=== PATIENT | female | born 1955 | race Caucasian/White ===

== ENCOUNTER 2018-02-28 08:16 | Emergency (ER) | payer OTHER, SELFPAY ==
[2018-02-28 08:36] VITALS: BP 150/99; PULSE 53; RESP 16; TEMP 36.4; O2SAT 100
[2018-02-28 08:43] LABS: Bilirubin Negative (Negative); Blood Large (Negative); Clarity Cloudy; Glucose Negative (Negative); Ketones 15 mg/dL (Negative); Leukocyte Esterase Negative (Negative); Nitrite Negative (Negative); Specific Gravity >= 1.030 (1.005-1.025); Urobilinogen 0.2 EU/dL (Up TO 0.2)
[2018-02-28] MEDS: Normal Saline 1,000 ML 1500 ML IV ×2 (08:50→10:00)
[2018-02-28] MEDS: Ketorolac 15 MG/ML VIAL IVP (08:50)
--- NOTE | 2018-02-28 08:59 | DI.CT_ITS ---
SYMPTOM/DIAGNOSIS: LEFT FLANK PAIN, HEMATURIA NONCONTRAST CT ABDOMEN AND PELVIS: Comparison is made with 25 Oct 2013, Images were performed from the lung bases through the ischial tuberosities without IV or oral contrast. There is mild left hydronephrosis secondary to a tiny stone just visible above the ureterovesical junction. No additional urinary tract calculi are seen. The lung bases are clear. The liver, gallbladder, spleen, pancreas and adrenals are unremarkable. The appendix appears normal. No bowel dilatation or inflammatory changes are seen. There is no free air or free fluid. The bladder, uterus and ovaries are unremarkable. IMPRESSION: Mild left hydronephrosis secondary to tiny calcification just above the ureterovesical junction.
[2018-02-28 09:03] LABS: Abs Immature Grans 0.02 k/cumm (0.0-0.09); Absolute Basophil Count 0.03 k/cumm (0.0-0.2); Absolute Eosinophil Count 0.14 k/cumm (0.0-0.7); Absolute Lymphocyte Count 1.79 k/cumm (1.2-3.4); Absolute Monocyte Count 0.37 k/cumm (0.11-0.7); Absolute Neutrophil Count 6.84 k/cumm (1.2-6.7); Basophils % 0.3; Eosinophils % 1.5; HCT 42.2 % (36.0-46.0); HGB 13.9 g/dL (12.0-15.5); Immature Grans % 0.2; Lymphocytes % 19.5; Mean Corp. HGB Concentration 32.9 g/dL (32.0-36.0); Mean Corpuscular Hemoglobin 28.4 pg (27.0-33.0); Mean Corpuscular Volume 86.1 fL (80-95); Mean Platelet Volume 10.4 fL (8.0-11.0); Neutrophils % 74.5; Platelet Count 239 x1000/uL (130-400); White Blood Cell Count 9.19 k/cumm (4.4-10.8)
[2018-02-28 09:05] LABS: RBC >50 (0-2)
[2018-02-28 09:06] LABS: C & S Indicated? No/Sq. Contamination; Epithelial Cells Many HPF (Negative)
[2018-02-28 09:22] LABS: ALT 22 U/L (12-78); AST 26 U/L (15-37); Albumin 3.8 g/dL (3.4-5.0); Alkaline Phosphatase 94 U/L (46-116); Anion Gap 14.8 mmol/L (3-11); BUN 13 mg/dL (7-18); Bilirubin, Total 0.4 mg/dL (0.2-1.0); CO2 23.2 mmol/L (21.0-32.0); CREATININE 0.97 mg/dL (0.55-1.02); Calcium 8.7 mg/dL (8.5-10.1); Chloride 103 mmol/L (98-107); Estimated GFR 58.38 (mL/min/1.73m2); Glucose 148 mg/dL (70-100); Lipase 222 U/L (73-393); Potassium 3.5 mmol/L (3.5-5.1); Sodium 141 mmol/L (136-145); Total Protein 7.6 g/dL (6.4-8.2)
--- NOTE | 2018-02-28 10:24 | W.ED.GENAD ---
Discharge Plan Disposition Patient Disposition: HOME Condition: Good Discharge Details Chief Complaint: FlankPain Clinical Impression: Kidney calculi, Diarrhea Primary Care Provider: Migdalia Rain ED Provider: Primo Proctor Home Meds and New Rx's Prescriptions: New acetaminophen [Mapap Extra Strength] 500 MG tablet 1,000 mg PO Q6H 5 Days Qty: 60 RF: 0 ibuprofen [Motrin IB] 200 MG tablet 600 mg PO Q6H 5 Days Qty: 60 RF: 0 No Action paroxetine HCl 20 MG tablet 20 mg PO QAM RF: 0 ibuprofen 600 MG tablet 600 mg PO TID PRN PRN (Reason: Pain) Qty: 20 RF: 0 cyclobenzaprine 10 MG tablet 10 mg PO TID Qty: 10 RF: 0 hydrocodone-acetaminophen 1 EACH tablet 1 ea PO Q4H PRN Qty: 10 RF: 1 hydromorphone [Dilaudid] 2 MG tablet 2 mg PO Q6H PRN PRNQty: 15 RF: 0 Discharge Instructions Instructions: Kidney Stones (ED), Acute Diarrhea (ED) Additional Instructions: Please take Tylenol and Motrin for pain. Please drink 8-10 cups of water per day. Please strain your urine for the stone. If you notice any worsening of your symptoms, or any new symptoms such as vomiting, diarrhea, fever, chills, shortness of breath, chest pain, numbness, weakness, or fainting , please return immediately to the emergency department for reevaluation. Please follow up with your primary care provider as soon as possible for reassessment and reevaluation. As always, it was a pleasure participating in your medical care today. Referrals: Migdalia Rain [Primary Care Provider] - Medical Decision Making [facility] Narrative Medical decision making narrative: This is a pleasant 62-year-old female who presents with a few episodes of diarrhea, and mild left lower neck pain. No significant flank tenderness, no CVA tenderness. No pain on abdominal exam. History is negative for any red flags for infectious diarrhea. She has no tenderness on abdominal exam during evaluation. Urinalysis does show evidence of elevated RBCs. Signs of significant infection. She has no family history of personal history of a kidney stone, however with these RBCs and the left-sided back pain we will get a CT scan to evaluate for potential urolithiasis. We will give Toradol for her pain, rehydrate as she does demonstrate moderate dehydration on clinical exam. 10:[address] results have returned to demonstrate evidence of mild left obstructive uropathy punctate calculus within the distal ureter on the left is faintly visualized just proximal to the UV J. On reevaluation the patient states that I am feeling 100% better and feel that the Toradol and rehydration certainly helped with the patient's current clinical scenario. I feel she may have even passed the small stone that was at the UVJ junction. With a complete resolution of her symptoms, no evidence of infection, and good rehydration and feel she can be safely discharged home. I feel her diarrhea may be secondary to a mild viral illness versus viscerosomatic reflex secondary to the kidney stone which would correlate well with her personal and family history. We discussed red flags which to return, as well as the importance of close follow-up, straining for the urine, and Tylenol and Motrin at home. We will hold off on Flomax that she has had a complete resolution of her symptoms at this time. If you notice any worsening of your symptoms, or any new symptoms such as vomiting, diarrhea, fever, chills, shortness of breath, chest pain, numbness, weakness, or fainting , please return immediately to the emergency department for reevaluation. Please follow up with your primary care provider as soon as possible for reassessment and reevaluation. As always, it was a pleasure participating in your medical care today. Lab Data Lab Results 02/28/18 02/28/18 02/28/18 Range/Units 08:35 08:55 08:55 WBC 9.19 (4.4-10.8) k/cumm RBC 4.90 (4.00-5.20) m/cumm Hgb 13.9 (12.0-15.5) g/dL Hct 42.2 (36.0-46.0) % MCV 86.1 (80-95) fL MCH 28.4 (27.0-33.0) pg MCHC 32.9 (32.0-36.0) g/dL RDW 13.0 (11.7-14.6) % Plt Count 239 (130-400) x1000/uL MPV 10.4 (8.0-11.0) fL Immature Gran % 0.2 Neutrophils % 74.5 Lymphocytes % 19.5 Monocytes % 4.0 Eosinophils % 1.5 Basophils % 0.3 Absolute Neutrophils 6.84 H (1.2-6.7) k/cumm Absolute Lymphocytes 1.79 (1.2-3.4) k/cumm Absolute Monocytes 0.37 (0.11-0.7) k/cumm Absolute Eosinophils 0.14 (0.0-0.7) k/cumm Absolute Basophils 0.03 (0.0-0.2) k/cumm Sodium 141 (136-145) mmol/L Potassium 3.5 (3.5-5.1) mmol/L Chloride 103 (98-107) mmol/L Carbon Dioxide 23.2 (21.0-32.0) mmol/L Anion Gap 14.8 H (3-11) mmol/L BUN 13 (7-18) mg/dL Creatinine 0.97 (0.55-1.02) mg/dL Estimated GFR/1.73 m2 58.38 (mL/min/1.73m2) Glucose 148 H (70-100) mg/dL Calcium 8.7 (8.5-10.1) mg/dL Total Bilirubin 0.4 (0.2-1.0) mg/dL AST 26 (15-37) U/L ALT 22 (12-78) U/L Alkaline Phosphatase 94 (46-116) U/L Total Protein 7.6 (6.4-8.2) g/dL Albumin 3.8 (3.4-5.0) g/dL Lipase 222 (73-393) U/L Urine Color Yellow (Yellow) Urine Clarity Cloudy Urine pH 5.0 (5-8) Ur Specific [place] >= 1.030 H (1.005-1.025) Urine Protein 30 H (Negative) mg/dL Urine Ketones 15 H (Negative) mg/dL Urine Blood Large H (Negative) Urine Nitrite Negative (Negative) Urine Bilirubin Negative (Negative) Urine Urobilinogen 0.2 (Up TO 0.2) EU/dL Ur Leukocyte Esterase Negative (Negative) Urine RBC >50 H (0-2) Urine WBC Not Applicable Ur Epithelial Cells Many (Negative) HPF Urine Crystals Not Applicable Urine Bacteria Not Applicable Urine Mucus Not Applicable Ur Culture Indicated? No/sq. contamination Urine Glucose Negative (Negative) mg/dL HPI - General Adult General Date/Time Provider Initiated Documentation: 02/28/18 08:34. HPI Narrative: This is a 62-year-old Fe male who presents today for evaluation of left lower back pain, some mild diarrhea. It started yesterday in the morning, has been continuing throughout the evening. She has had 3-4 loose bowel movements. She denies any melena, hematochezia, or acholic stool. She does have some associated dry heaving but no actual vomiting. There appears to be nothing that improves or worsens her symptoms. She has been able to keep down some toast from yesterday without any difficulty. She has been drinking some fluids. He describes the back pain as an achy-like sensation in her left lower back. It has no radiation. It does not travel around to her groin. She denies any abdominal pain. She denies any increased urinary frequency, hematuria, dysuria, fever, or chills. She denies any foreign travel, recent antibiotics, sick contacts, or camping. She denies any history of GI infections. She does state that she and the rest of her family often get loose stools and GI irritability whenever she is nervous or under stress. She does not that she has been under a notable amount of stress as of late. Past surgical history is positive for fibroid surgery on her breast. She takes Paxil. She denies any other significant medications. She denies any pertinent family history. She has no other complaints at this time. She denies any other illicit drug Related Data Home Medications Medication Instructions Recorded Confirmed paroxetine HCl 20 mg PO QAM 09/11/12 10/26/13 Previous Rx's Medication Instructions Recorded ibuprofen 600 mg PO TID PRN PRN #20 tablet 09/11/12 cyclobenzaprine 10 mg PO TID #10 tab 10/25/13 hydrocodone-acetaminophen 1 ea PO Q4H PRN #10 tablet 10/25/13 hydromorphone [Dilaudid] 2 mg PO Q6H PRN PRN #15 tab 10/26/13 acetaminophen [Mapap Extra 1,000 mg PO Q6H 5 Days #60 tab 02/28/18 Strength] ibuprofen [Motrin Ib] 600 mg PO Q6H 5 Days #60 tab 02/28/18 Allergies Allergy/AdvReac Type Severity Reaction Status Date / Time No Known Allergies Allergy Unverified 10/26/13 09:00 General Stated Complaint: FlankPain THELMA: 3 Review of Systems Review of Systems 10 point review of systems was performed, pertinent positives and negatives are noted in the history of present illness. [facility] Social History Smoking/Tobacco Use Status: Never Exam Narrative Exam Narrative: 1.Const: Well-nourished, Well-developed, appearing stated age 2.Eyes: PERRL, no conjunctival injection, and symmetrical lids. 3.ENT: Atraumatic external nose and ears. Dry MM. Neck: Symmetric, trachea midline, No thyromegaly. 4.CVS: +S1/S2, No murmurs or gallops. Peripheral pulses 2+ and equal in all extremities. Brisk capillary refill in all extremities. 5.RESP: Unlabored respiratory effort. Clear to auscultation bilaterally. No wheezes rales or rhonchi 6.GI: Soft, Nontender/Nondistended, No hepatosplenomegaly. No guarding or rebound. No pain at McBurney's point, negative Isaacs sign, negative obturator and psoas sign. Patient does have mild achiness on palpation of the left lower paraspinal region. No midline spinal tenderness. 7.MSK: Normocephalic/Atraumatic, Extremities w/o deformity or ttp No cyanosis or clubbing, Normal movement of all extremities. No midline tenderness to palpation over the CTLS spine. Normal ROM in flexion, extension, side bend, and rotation. Patient has +5 out of 5 strength in the lower extremities in dorsiflexion and plantarflexion, knee flexion and extension, hip flexion and extension. There is +2 over 2 dorsalis pedis pulses bilaterally. There is normal sensation to the skin with light touch at the foot, knee, and hip. Normal saddle sensation. Good sensation over the deep sural nerve area bilaterally. Rectal exam deferred. Reflexes are +2 over 4 in the patellar reflex bilaterally. +5 out of 5 strength in the medial, ulnar, radial nerve distribution bilaterally in the hands as well as intact light touch sensation to these dermatomes on the hands 8.Skin: Warm, Dry. No rashes or lesions. 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 Sensation grossly intact, no focal neurologic deficits. 10.Psych: (AAO) x3. Appropriate mood and affect Course Vital Signs Temperature 36.4 C L 02/28/18 08:36 Pulse 53 L 02/28/18 08:36 Respiratory Rate 16 02/28/18 08:36 Blood Pressure 150/99 H 02/28/18 08:36 Pulse Oximetry 100 02/28/18 08:36 Temperature 36.4 C L 02/28/18 08:36 Pulse 53 L 02/28/18 08:36 Respiratory Rate 16 02/28/18 08:36 Blood Pressure 150/99 H 02/28/18 08:36 Pulse Oximetry 100 02/28/18 08:36 Lab/Test Results Lab/Test Results: Laboratory Tests 02/28/18 02/28/18 02/28/18 08:35 08:55 08:55 WBC 9.19 RBC 4.90 Hgb 13.9 Hct 42.2 MCV 86.1 MCH 28.4 MCHC 32.9 RDW 13.0 Plt Count 239 MPV 10.4 Immature Gran % 0.2 Neutrophils % 74.5 Lymphocytes % 19.5 Monocytes % 4.0 Eosinophils % 1.5 Basophils % 0.3 Absolute Neutrophils 6.84 H Absolute Lymphocytes 1.79 Absolute Monocytes 0.37 Absolute Eosinophils 0.14 Absolute Basophils 0.03 Sodium 141 Potassium 3.5 Chloride 103 Carbon Dioxide 23.2 Anion Gap 14.8 H BUN 13 Creatinine 0.97 Estimated GFR/1.73 m2 58.38 Glucose 148 H Calcium 8.7 Total Bilirubin 0.4 AST 26 ALT 22 Alkaline Phosphatase 94 Total Protein 7.6 Albumin 3.8 Lipase 222 Urine Color Yellow Urine Clarity Cloudy Urine pH 5.0 Ur Specific [place] >= 1.030 H Urine Protein 30 H Urine Ketones 15 H Urine Blood Large H Urine Nitrite Negative Urine Bilirubin Negative Urine Urobilinogen 0.2 Ur Leukocyte Esterase Negative Urine RBC >50 H Urine WBC Not Applicable Ur Epithelial Cells Many Urine Crystals Not Applicable Urine Bacteria Not Applicable Urine Mucus Not Applicable Ur Culture Indicated? No/sq. contamination Urine Glucose Negative
--- NOTE | 2018-02-28 10:43 | DI.VRAD_ITS ---
EXAM: CT Abdomen and Pelvis Without Intravenous Contrast EXAM DATE/TIME: 02/28/2018 9:00 AM CLINICAL HISTORY: 62 years old, female; Signs and symptoms; Other: Left flank pain, hematuria; Patient HX: Left flank pain, hematuria, ; additional info: Llq pain since this am per PT TECHNIQUE: Axial computed tomography images of the abdomen and pelvis without intravenous contrast. All CT scans at this facility use at least one of these dose optimization techniques: automated exposure control; mA and/or kV adjustment per patient size (includes targeted exams where dose is matched to clinical indication); or iterative reconstruction. Coronal and sagittal reformatted images were created and reviewed. COMPARISON: CT - RENAL COLIC WO CONTRAST 10/25/2013 9:45 AM FINDINGS: Lower thorax: No acute findings. ABDOMEN: Liver: Normal. No mass. Gallbladder and bile ducts: Normal. No calcified stones. No ductal dilation. Pancreas: Normal. No ductal dilation. Spleen: Normal. No splenomegaly. Adrenals: Normal. No mass. Kidneys and ureters: Mild left obstructive uropathy Punctate calculus within the distal left ureter faintly visualized, just proximal to the ureterovesical junction (series 4 image 638). No right hydronephrosis. Stomach and bowel: Normal. No obstruction. No mucosal thickening. Appendix: No evidence of appendicitis. PELVIS: Bladder: Unremarkable as visualized. Reproductive: Unremarkable as visualized. ABDOMEN and PELVIS: Intraperitoneal space: Normal. No free air. No significant fluid collection. Bones/joints: No acute fracture. No dislocation. Soft tissues: Unremarkable. Vasculature: Normal. No abdominal aortic aneurysm. Lymph nodes: Normal. No enlarged lymph nodes. IMPRESSION: Mild left obstructive uropathy Punctate calculus within the distal left ureter faintly visualized, just proximal to the ureterovesical junction (series 4 image 638). Dictated and Authenticated by: Aurea Robertson MD. Ordering:CAMI AMANDA MD
[2018-02-28 11:12] VITALS: BP 135/72; PULSE 56; RESP 16; TEMP 36.4; O2SAT 100
== END 2018-02-28 11:12 | disposition home or self-care (01) ==
PROVIDERS: Emergency Provider Student in an Organized Health Care Education/Training Program; PCP Nurse Practitioner Family
DX: N13.2 Hydronephrosis with renal and ureteral calculous obstruction (principal); E86.0 Dehydration; R19.7 Diarrhea, unspecified
CPT/HCPCS: 36415; 80053; 83690; 96361; 96374; 99284; 74176; 81003; 81015; 85025; J1885

== ENCOUNTER 2018-06-10 15:53 | Outpatient (REF) | payer OTHER, SELFPAY ==
[2018-06-12 12:30] LABS: Hepatitis C Ab w Rflx HCV PCR Negative (NEGAT)
== END 2018-06-10 16:13 ==
LOC: NCHCN 15:53
PROVIDERS: PCP Nurse Practitioner Family; Visit Provider Nurse Practitioner Family
DX: F41.8 Other specified anxiety disorders (principal); N39.3 Stress incontinence (female) (male); Z00.00 Encounter for general adult medical examination without abnormal findings; Z11.59 Encounter for screening for other viral diseases
CPT/HCPCS: 86803

== ENCOUNTER 2018-11-25 11:41 | Outpatient (CLI) | payer OTHER, SELFPAY ==
[2018-11-25 12:26] LABS: HCT 41.1 % (36.0-46.0); HGB 13.3 g/dL (12.0-15.5); Mean Corp. HGB Concentration 32.4 g/dL (32.0-36.0); Mean Corpuscular Hemoglobin 28.5 pg (27.0-33.0); Mean Platelet Volume 10.7 fL (8.0-11.0); Platelet Count 283 x1000/uL (130-400); RBC 4.67 m/cumm (4.00-5.20); RBC Distribution Width 13.1 % (11.7-14.6); White Blood Cell Count 6.42 k/cumm (4.4-10.8)
[2018-11-25 12:51] LABS: D-Dimer 316 ng/mlFEU (<500)
[2018-11-25 13:16] LABS: Anion Gap 10.7 mmol/L (3-11); BUN 12 mg/dL (7-18); CO2 28.3 mmol/L (21.0-32.0); CREATININE 0.76 mg/dL (0.55-1.02); Calcium 8.7 mg/dL (8.5-10.1); Calculated LDL 145; Chloride 104 mmol/L (98-107); Cholesterol 220 mg/dL (50-200); Glucose 84 mg/dL (70-100); HDL Cholesterol 60 mg/dL (40-60); Potassium 4.1 mmol/L (3.5-5.1); Sodium 143 mmol/L (136-145); Triglyceride 79 mg/dL (30-150)
[2018-11-25 13:38] LABS: NT-proBNP 63 pg/mL
== END 2018-11-25 12:01 ==
PROVIDERS: PCP Nurse Practitioner Family; Visit Provider Internal Medicine
DX: R07.89 Other chest pain (principal); R06.02 Shortness of breath
CPT/HCPCS: 36415; 80048; 80061; 83721; 85027; 83880; 85379

== ENCOUNTER 2018-12-06 00:25 | Outpatient (CLI) | payer OTHER, SELFPAY ==
--- NOTE | 2018-12-06 08:15 | MERGEMPI_ITS ---
*[facility]* *[facility]* [address] [place] [address] Myocardial Perfusion Imaging - SPECT Prakash protocol Date of study: 12/06/2018 *PATIENT PRESENTATION* Height: 149.9cm (59in) Blood Pressure: Weight: 43.2kg (95lb) BSA: 1.34m^2 Referring physician: Devon Hardy MD Ordering physician: Migdalia Rain Aprn Impressions: - Abnormal study after maximal exercise. - Will arrange [facility]. Summary: 1. Myocardial perfusion imaging: There is a moderate sized, severely intense, fully reversible defect involving the inferior wall(s). This suggests moderate ischemia in the distribution of the right coronary artery. Overall ischemia: moderate. 2. The calculated left ventricular ejection fraction after stress: 69%. No left ventricular regional motion abnormality. Indication: R07.89. History: REASON FOR VISIT: FOR PAST TWO WEEKS PT HAS BEEN EXPERIENCING CHEST PRESSURE WITH ACTIVIY SUCH LIFTING HEAVY OBJECTS OR WALKING UPSTAIRS. SHE STATES IT SUBSIDES WITH STOPPING THE ACTIVITY. THERE IS NO ASSOCIATED SHORTNESS OF BREATH. Risk factors: Cholesterol: 124mg/dl. HDL: 60mg/dl. LDL: 145mg/dl. Triglycerides: 79mg/dl. ALLERGIES: NO KNOWN DRUG ALLERGIES. MEDICATIONS: IBUPROFEN 400 MG TID PRN. PAROXETINE HCL 20 MG DAILY. Imaging Technique: Protocol: Prakash protocol. Acquisition: Gated SPECT; 1 day - rest/stress. The patient was imaged in the supine position. Attenuation correction used. Isotope administration: - Rest. Tc[99m]-sestamibi. Dose: 10.4mCi. Injection time: 08:30 AM. Injection to stress time: 00:45. - Stress. Tc[99m]-sestamibi. Dose: 32mCi. Injection time: 11:00 AM. 1-2 min before end of exercise Baseline ECG: SINUS RHYTHM. INCOMPLETE RIGHT BBB. HR 71 BPM. Stress protocol: + +---+ + !Stage !HR !BP (mmHg) ! + +---+ + !Baseline supine !71 !158/80 (106)! + +---+ + !Baseline standing !73 !160/80 (107)! + +---+ + !Stage I; 1.7mph, 10degrees; 3 min !135!170/82 (111)! + +---+ + !Stage II; 1.7mph, 10degrees; 3 min!143!170/82 (111)! + +---+ + !Peak stress !143! ! + +---+ + !Recovery; 1 min !98 !178/80 (113)! + +---+ + !Recovery; 3 min !71 !140/70 (93) ! + +---+ + !Recovery; 6 min !78 !138/72 (94) ! + +---+ + * Stress results: Maximal heart rate during stress was 143bpm (90% of maximal predicted heart rate). The maximal predicted heart rate was 159bpm. The rate-pressure product for the peak heart rate and blood pressure was 47133cb Hg/min. Stress ECG: TREADMILL PORTION OF STRESS TEST ENDED IN 5 MINUTES & 2 SECONDS DUE TO FATIGUE, WEAKNESS AND PT UNABLE TO CONTINUE ON TREADMILL. NORMAL HEART RATE AND BLOOD PRESSURE RESPONSE TO EXERCISE MAX HR = 143 % OF TARGET= 89 NO ECTOPY APPROXIMATE METS ACHIEVED = 4.64 PT UNABLE TO SAFELY TRANSITION TO STAGE 2 OF EXERCISE. STAGE ONE OF EXERCISE MPH AND GRADE MAINTAINED FOR LENGTH OF TEST. CHEST PAIN 1 OUT OF 10 REPORTED AT 2 MINUTES RECOVERY PERIOD. SUBSIDED IN LESS THAN [address] SEGMENT DEPRESSIONS IN LEADS V3, V4, V5 & V6 DURING PEAK EXERCISE AND IMMEDIATE RECOVERY BECOMING FLATTENED AND DOWNWARD SLOPING AT 4 AND 6 MINUTES RECOVERY TIME. FUNCTIONAL CAPACITY FOR EXERCISE. Myocardial perfusion: Imaging information: gated. There is a moderate sized, severely intense, fully reversible defect involving the inferior wall(s). This suggests moderate ischemia in the distribution of the right coronary artery. Overall ischemia: moderate. Ventricular Function (Wall Motion): The calculated left ventricular ejection fraction after stress: 69%. No left ventricular regional motion abnormality. Study data: Devon Hardy MD supervised and was readily available during the procedure. This study was interpreted by [facility]. Study status: Routine. Consent: The risks, benefits, and alternatives to the procedure were explained to the patient and informed consent was obtained. Procedure: Initial setup. A baseline ECG was recorded. Surface ECG leads and manual cuff blood pressure measurements were monitored. Heart sounds: Normal. Lung sounds: Normal. Treadmill exercise testing was performed using the Prakash protocol. Study completion: All catheters inserted during the procedure were removed. The patient tolerated the procedure well and was discharged from the lab. Discharge: The patient left the laboratory in stable condition. Birthdate: Patient birthdate: 1955. Sex: Gender: female. Study date: Study date: 12/06/2018. Study time: 00:01 AM. Electronically signed by Devon Hardy MD 12/06/2018 16:19
== END 2018-12-06 00:45 ==
PROVIDERS: PCP Nurse Practitioner Family; Visit Provider Internal Medicine
DX: R06.02 Shortness of breath (principal); R94.30 Abnormal result of cardiovascular function study, unspecified
CPT/HCPCS: 78452; 93017

== ENCOUNTER 2019-01-19 12:16 | Outpatient (RCR) | payer OTHER, SELFPAY | END 2019-01-19 23:59 | disposition home or self-care (01) | LOC: CR 12:16 | PROVIDERS: PCP Nurse Practitioner Family; Visit Provider Family Medicine | DX: Z51.89 Encounter for other specified aftercare (principal) ==

== ENCOUNTER 2019-02-18 09:00 | Outpatient (RCR) | payer OTHER, SELFPAY | END 2019-02-19 23:59 | disposition home or self-care (01) | LOC: CR 09:00 | PROVIDERS: PCP Nurse Practitioner Family; Visit Provider Family Medicine | DX: Z95.5 Presence of coronary angioplasty implant and graft (principal); Z51.89 Encounter for other specified aftercare | CPT/HCPCS: S9472 ==

== ENCOUNTER 2019-03-21 08:00 | Outpatient (RCR) | payer OTHER, SELFPAY | END 2019-03-21 23:59 | disposition home or self-care (01) | LOC: CR 08:00 | PROVIDERS: PCP Nurse Practitioner Family; Visit Provider Family Medicine | DX: Z95.5 Presence of coronary angioplasty implant and graft (principal); Z51.89 Encounter for other specified aftercare | CPT/HCPCS: S9472 ==

== ENCOUNTER 2019-04-20 11:38 | Outpatient (RCR) | payer OTHER, SELFPAY | END 2019-04-21 23:59 | disposition home or self-care (01) | LOC: CR 11:38 | PROVIDERS: PCP Nurse Practitioner Family; Visit Provider Family Medicine | DX: Z95.5 Presence of coronary angioplasty implant and graft (principal); Z51.89 Encounter for other specified aftercare | CPT/HCPCS: S9472 ==

== ENCOUNTER 2019-04-27 08:00 | Outpatient (RCR) | payer OTHER, SELFPAY | END 2019-05-21 23:59 | disposition home or self-care (01) | LOC: CR 08:00 | PROVIDERS: PCP Nurse Practitioner Family; Visit Provider Family Medicine | DX: Z95.5 Presence of coronary angioplasty implant and graft (principal); Z51.89 Encounter for other specified aftercare | CPT/HCPCS: S9472 ==

== ENCOUNTER 2019-06-02 06:56 | Outpatient (CLI) | payer OTHER, SELFPAY ==
--- NOTE | 2019-06-02 07:54 | DI.RAD_ITS ---
EXAM: XR WRIST RT COMPL NAVICULAR INDICATION: PAIN IN RT WRIST, M25.531. COMPARISON: No exams were available for comparison TECHNIQUE: 2D digital imaging was performed. FINDINGS: CT there is a fracture extent seen extending transversely across the distal radial metaphysis. There is no significant displacement or angulation. No extension to the articular surface is visible. Th ere are few tiny comminuted fragments seen posteriorly. The distal ulna and carpal bones appear inta ct. IMPRESSION: Nondisplaced distal radial fracture.
== END 2019-06-02 07:16 ==
PROVIDERS: PCP Nurse Practitioner Family; Visit Provider Specialist/Technologist Athletic Trainer
DX: M25.531 Pain in right wrist (principal); S52.591A Other fractures of lower end of right radius, initial encounter for closed fracture
CPT/HCPCS: 73110

== ENCOUNTER 2019-07-11 13:33 | Outpatient (REF) | payer OTHER, SELFPAY ==
[2019-07-11 22:32] LABS: ALT 24 U/L (14-59); AST 18 U/L (15-37); Albumin 3.8 g/dL (3.4-5.0); Alkaline Phosphatase 100 U/L (46-116); Anion Gap 11.2 mmol/L (3-11); BUN 14 mg/dL (7-18); Bilirubin, Total 0.4 mg/dL (0.2-1.0); CO2 26.8 mmol/L (21.0-32.0); CREATININE 0.92 mg/dL (0.55-1.02); Calcium 8.8 mg/dL (8.5-10.1); Calculated LDL 76 mg/dL; Chloride 104 mmol/L (98-107); Cholesterol 146 mg/dL (<200); Glucose 106 mg/dL (74-106); HDL Cholesterol 60 mg/dL (40-60); Potassium 4.1 mmol/L (3.5-5.1); Sodium 142 mmol/L (136-145); Total Protein 6.9 g/dL (6.4-8.2); Triglyceride 50 mg/dL (<150)
== END 2019-07-11 13:53 ==
LOC: NCHCN 13:33
PROVIDERS: PCP Nurse Practitioner Family; Visit Provider Nurse Practitioner Family
DX: Z00.00 Encounter for general adult medical examination without abnormal findings (principal); I25.10 Atherosclerotic heart disease of native coronary artery without angina pectoris; F41.8 Other specified anxiety disorders; M79.645 Pain in left finger(s); N39.3 Stress incontinence (female) (male); M85.80 Other specified disorders of bone density and structure, unspecified site
CPT/HCPCS: 80053; 80061

== ENCOUNTER 2019-08-10 02:22 | Outpatient (CLI) | payer OTHER, SELFPAY ==
--- NOTE | 2019-08-10 08:20 | DI.MAMMO_ITS ---
EXAM: MAMMO SCREENING CLINICAL HISTORY: SCREENING,Z12.39, FAMILY H/O BREAST CA, Z80.3 TECHNIQUE: Mammograms were interpreted according to the usual protocol including computer analysis w Wannyi CAD system, tomosynthesis and C-view imaging. COMPARISON: 2009 to 2016 FINDINGS: The breasts are composed of heterogeneously dense fibroglandular densities, Breast Density category C . No suspicious masses or suspicious microcalcifications are seen. A smoothly marginated area of nodul arity is again noted in the subareolar region of the right breast. No skin thickening or abnormal axillary lymph nodes are seen. There has been no significant change from prior exams. IMPRESSION: BI-RADS Cat 2 - Benign Findings. Yearly screening mammography is recommended. BREAST DENSITY: The mammogram demonstrates the patient's breast tissue is dense. Dense breast tissue is very common and is not abnormal but dense breast tissue can make it harder to find cancer on a ma mmogram. Also, dense breast tissue may increase breast cancer risk. This information about the result of the mammogram report was provided to the patient to raise their awareness. Use this report when y ou speak with the patient about their risks for breast cancer, which includes their family history. A t that time, you may recommend additional screening tests (Ultrasound or MRI) as they might be useful based on their risk. A negative radiographic report should not delay biopsy if a dominant or clinically suspicious mass is present. Up to ten percent of cancers are not identified on mammography. A negative report may reinforce clinical impression. Adenosis and dense breasts may obscure an underlying neoplasm. False positive reports average 6 to 10%.
== END 2019-08-10 02:42 ==
PROVIDERS: PCP Nurse Practitioner Family; Visit Provider Nurse Practitioner Family
DX: Z12.31 Encounter for screening mammogram for malignant neoplasm of breast (principal); Z80.3 Family history of malignant neoplasm of breast
CPT/HCPCS: 77063; 77067

== ENCOUNTER 2020-07-24 13:02 | Outpatient (REF) | payer MEDICAID, SELFPAY ==
--- NOTE | 2020-07-24 11:30 | PAPFT_PTH ---
PATIENT: Carmelina Ellis LOC: [facility]#:[id number] AGE/SX: 64/F ROOM: RE07/24/[address]: Migdalia Rain : 1955 BED: DIS: 07/24/2020 SPEC #: [id number] RECD: 07/25/20 13:03 STATUS: ROBERTO JIMENEZ #: [id number] RYLEY: 07/24/20 11:[address]: Migdalia Rain DEPT: [facility] Cytology RECD BY: Gladys Hanna Tissues: 1 - CX/ENDOCX FOR PAP SMEARS Procedures: PAP THIN PREP/UVM Screening HPV DNA PROBE Comments: [id number]
[2020-07-24 22:37] LABS: ALT 23 U/L (14-59); AST 20 U/L (15-37); Albumin 3.9 g/dL (3.4-5.0); Alkaline Phosphatase 89 U/L (46-116); Anion Gap 11.2 mmol/L (3-11); BUN 12 mg/dL (7-18); Bilirubin, Total 0.4 mg/dL (0.2-1.0); CO2 26.8 mmol/L (21.0-32.0); CREATININE 0.9 mg/dL (0.55-1.02); Calcium 8.8 mg/dL (8.5-10.1); Chloride 104 mmol/L (98-107); Glucose 85 mg/dL (74-106); Potassium 4.1 mmol/L (3.5-5.1); Sodium 142 mmol/L (136-145); Total Protein 6.8 g/dL (6.4-8.2)
== END 2020-07-24 13:03 | disposition home or self-care (01) ==
LOC: NCHCN 13:02
PROVIDERS: PCP Nurse Practitioner Family; Visit Provider Nurse Practitioner Family
DX: M54.9 Dorsalgia, unspecified (principal); I25.10 Atherosclerotic heart disease of native coronary artery without angina pectoris; Z87.442 Personal history of urinary calculi; M79.645 Pain in left finger(s); F41.8 Other specified anxiety disorders; Z00.00 Encounter for general adult medical examination without abnormal findings; M85.88 Other specified disorders of bone density and structure, other site; Z80.3 Family history of malignant neoplasm of breast; Z12.4 Encounter for screening for malignant neoplasm of cervix; Z87.42 Personal history of other diseases of the female genital tract; Z11.51 Encounter for screening for human papillomavirus (HPV)
CPT/HCPCS: 80053; 88142; 87624

== ENCOUNTER 2020-08-13 01:13 | Outpatient (CLI) | payer MEDICAID, SELFPAY ==
--- NOTE | 2020-08-13 | DI.MAMMO_ITS ---
EXAM: MAMMO SCREENING CLINICAL HISTORY: SCREENING, Z12.39. TECHNIQUE: Bilateral full field digital CC and MLO mammographic images were obtained with 3D tomosyn thesis and utilizing computer aided detection (CAD). COMPARISON: Prior mammograms dating back to 2011, the most recent being July 2019. Significant family history. Her mother was diagnosed with breast cancer, postmenopausal. FINDINGS: The fibroglandular tissue is again noted to be dense, this decreasing the sensitivity of the mammogra m for finding hidden underlying lesions. There are no CAD designations. Nodular densities in the right breast are unchanged from 2012 and therefore benign. There are no new spiculated masses nor malignant-appearing microcalcification groups. There is no significant eliz ectural distortion nor skin thickening-retraction. IMPRESSION: Dense bilateral fibroglandular tissue. Stable benign-appearing findings. No radiographic evidence o f malignancy. BI-RADS Category 2 - Benign Findings Breast Density - Category C - Heterogeneously dense Breast density Category C or D implies that the patient has dense breast tissue. Dense breast tissue can make it harder to find cancer on a mammogram. Dense breast tissue is also associated with an incr eased risk of breast cancer. This information about the result of the mammogram report was provided to the patient to raise their awareness. Use this report when you speak with the patient about their risks for breast cancer, which includes their family history. At that time, you may recommend additional screening tests (Ultrasoun d or MRI) as these tests may add significant information. A negative radiographic report should not delay biopsy if a dominant or clinically suspicious mass is present. Up to ten percent of cancers are not identified on mammography. A negative report may reinforce clinical impression. Adenosis and dense breasts may obscure an underlying neoplasm. False positive reports average 6 to 10%. Patient will receive a letter notifying them of these results.
== END 2020-08-13 01:14 ==
LOC: DI 01:19
PROVIDERS: PCP Nurse Practitioner Family; Visit Provider Nurse Practitioner Family
DX: Z12.31 Encounter for screening mammogram for malignant neoplasm of breast (principal); Z80.3 Family history of malignant neoplasm of breast
CPT/HCPCS: 77063; 77067

== ENCOUNTER 2020-10-31 02:39 | Outpatient (CLI) | payer MEDICAID, SELFPAY ==
[2020-10-31 11:37] LABS: Source Nasal/Nares
[2020-10-31 15:24] LABS: COVID-19 PCR Negative (Negative)
== END 2020-10-31 02:40 | disposition home or self-care (01) ==
LOC: LBO 02:39
PROVIDERS: PCP Nurse Practitioner Family; Visit Provider Surgery
DX: Z20.822 Contact with and (suspected) exposure to COVID-19 (principal); Z01.818 Encounter for other preprocedural examination
CPT/HCPCS: 87635

== ENCOUNTER 2020-11-02 10:18 | Day surgery (SDC) | payer MEDICAID, SELFPAY ==
[2020-11-02 10:34] VITALS: BP 142/82; PULSE 63; RESP 16; TEMP 36.6; O2SAT 97
[2020-11-02] MEDS: Lactated Ringers 1,000 ML 80 ML IV (10:51)
--- NOTE | 2020-11-02 11:14 | W.ANESPRE ---
General Info Date of Service Date Performed: 11/02/20 Height: 4 ft 11 in Weight: 43.6 kg Body Mass Index (BMI): 19.4 Surgical Procedure: Operation Date: 11/02/20 11:05 Proposed Procedures Side Surgeon andrew Murphy, Meds Allergies and Home Medications Allergies Allergy/AdvReac Type Severity Reaction Status Date / Time No Known Allergies Allergy Verified 11/02/20 10:32 Home Medication Medication Instructions Recorded ibuprofen 600 mg PO TID PRN PRN #20 tab 09/11/12 paroxetine HCl 20 mg PO QAM 09/11/12 nitroglycerin 0.4 mg sublingual 0.4 mg SL Q5M PRN 07/25/19 tablet aspirin 81 mg tablet,delayed 81 mg PO DAILY #90 tab 10/17/19 release atorvastatin 20 mg tablet 20 mg PO QHS #90 tab 10/17/19 metoprolol succinate 25 mg 25 mg PO DAILY 08/22/20 tablet,extended release 24 hr Current Visit Medications: Current Medications Generic Name Dose Route Start Last Admin Trade Name Freq PRN Reason Stop Dose Admin Ringer's Solution 1,000 mls @ 80 mls/hr 11/02/20 06:00 11/02/20 10:51 IV 12/01/20 23:59 80 mls/hr INFUSION KIYA Administration IV Miscellaneous Supplies 1 each 11/02/20 06:00 Iv Access IV 12/01/20 23:59 DIRECTED KIYA Sodium Chloride 0 ml 11/02/20 06:00 Normal Saline Flush 10 Ml Syr IV 12/01/20 23:59 PRN PRN Sodium Chloride 0 ml 11/02/20 06:00 Normal Saline 10 Ml Vial IJ 12/01/20 23:59 DIRECTED PRN Sterile Water 0 ml 11/02/20 06:00 Water,Injection,Sterile 10 Ml Vial IJ 12/01/20 23:59 DIRECTED PRN PFSH Active Problems Active Problems: Problem Status Onset Code Colon cancer screening Z12.11 CAD (coronary artery disease) I25.10 Distal radius fracture, right ~05/14/19 S52.501A Medical History Medical History Anxiety and depression Back pain CAD (coronary artery disease) Decreased hearing Distal radius fracture, right (~05/14/19) TRUONG (dyspnea on exertion) denies this Family history of breast cancer History of kidney stones Osteopenia Pain in right wrist Stress incontinence Suprapubic pain Thumb pain Surgical History Surgical History H/O heart artery stent (~11/2018) ANN MARIE to RCA-no longer has to f/u with cardiology Tobacco Smoking/Tobacco Use Status: Never Alcohol Alcohol Intake: never Substance Use Substance use: Never Substance use type: does not use Vital Signs and Lab Results Vital Signs Most Recent Vital Signs in EMR: Most Recent Vital Signs Temp Pulse Resp BP Pulse Ox 36.6 C 63 16 142/82 H 97 11/02/20 10:34 11/02/20 10:34 11/02/20 10:34 11/02/20 10:34 11/02/20 10:34 Lab Results Blood Type / Crossmatch: No Data to Display Complete Blood Count: No Data to Display Complete Metabolic Panel: No Data to Display Liver Function Panel: No Data to Display Coagulation Panel: No Data to Display Cardiac Panel: No Data to Display Arterial Blood Gas: No Data to Display Venous Blood Gas: No Data to Display Pancreas Panel: No Data to Display Thyroid Panel: No Data to Display Infectious Disease: Coronavirus (COVID-19)(PCR) Negative (Negative) 10/31/20 10:04 10/31/20 Coronavirus 2019 Source Nasal/nares 10/31/20 10:04 10/31/20 Blood Cultures: No Data to Display Toxicology Panel: No Data to Display Anesthesia Assessment and Plan Anesthesia History Personal History: No History of Anesthesia Complications Family History: No Family History of Anesthesia Complications Exercise Tolerance Exercise Tolerance: Metabolic Equivalents>4 Cardiac & Pulmonary Exam Cardiac Exam: Normal S1/S2 Heart Sounds Pulmonary Exam: Clear Bilateral Breath Sounds Cardiac and Pulmonary Comment:: Patient has been asymptomatic since RCA stent placement. Airway Exam Known Difficult Airway: No Mallampati Class: 2 Mouth Opening: Normal (> 3cm) Thyromental Distance: Greater than 3 cm Neck Range of Motion: Full ROM Neck Circumference: Normal Teeth Condition: Normal Dentition ASA Classification ASA Score: ASA 2 Emergency Case?: No NPO Status NPO Status: NPO Clears >2 hours, Solids >8 hours Anesthesia Plan Resuscitation Status: Full Code Anesthesia Technique: General Anesthesia Airway Planned: Natural Airway Monitors Used: Standard Monitors
[2020-11-02 11:24] VITALS: BMI 19.4
[2020-11-02 12:30] VITALS: BP 115/71; PULSE 59; RESP 16; TEMP 36.1; O2SAT 97
--- NOTE | 2020-11-02 12:35 | W.COLOREPORT ---
Date of service: 11/02/20 Time of Service: 12:35 Colonoscopy Report Date of procedure: 11/02/20 Pre-op diagnosis general: screening Post-op diagnosis procedure note: same (Incidentally noted a pilonidal cyst) Surgeon: Beryl Murphy Anesthesia Type: General LMA/ETT Estimated blood loss (mL): 0 Pathology: none sent Complications: None Disposition: no change Prep: Miralax/Dulcolax Retraction Time: 8 mins Procedure Description: After informed consent was obtained the patient was taken to the procedure room and placed in a left decubitous position. Monitors were applied and a time out was done. The patients name, date of , procedure, allergies to medications and metal in their body was reviewed. The patient was then sedated. Once sedated and comfortable a rectal exam was done. External exam was normal. Internal exam revealed a normal sphincter tone and no palpable masses. The scope was then introduced and retrofelexed. No internal hemorrhoids were identified. The scope was then advanced to the cecum without difficulty. The TI and appendiceal orifice were identified. The prep was good there are no polyps, AVMs, or diverticula visualized on today's exam. The mucosa is pink and healthy. The scope was then slowly retracted over minutes back into the rectum. The scope was removed and the patient was woken up and taken back to Same day surgery in stable condition. Incidentally noted is a pilonidal cyst. It has large central sinus- almost 1 millimeter in size-there is no active infection or drainage. The patient tolerated the procedure well and there were no immediate complications. Follow up: The patient should follow up in 10 years unless they develop changes in bowel habits or other new gastrointestinal complaints.
--- NOTE | 2020-11-02 12:38 | PDOC.DSDIS_ITS ---
Discharge Plan Disposition Patient Disposition: HOME Condition: Good Discharge Details Reason For Visit: colon scope Attending Provider: Beryl Murphy Primary Care Provider: Migdalia Rain Home Meds and New Rx's Prescriptions: Continued nitroglycerin 0.4 mg tablet, sublingual 0.4 mg SL Q5M PRNRF: 0 atorvastatin 20 mg tablet 20 mg PO QHS Qty: 90 RF: 6 aspirin 81 mg tablet,delayed release (DR/EC) 81 mg PO DAILY Qty: 90 RF: 6 metoprolol succinate 25 mg tablet extended release 24 hr 25 mg PO DAILY RF: 0 paroxetine HCl 20 MG tablet 20 mg PO QAM RF: 0 ibuprofen 600 MG tablet 600 mg PO TID PRN PRN (Reason: Pain) Qty: 20 RF: 0 Discharge Instructions Additional Instructions: DSU Colonoscopy Post- Op Instructions Instructions for Everyone who is given Anesthesia: For your safety, please do the following for the next twenty-four (24) hours: *Do Not operate a motor vehicle (car, truck, motorcycle, etc.) *Do Not drink alcoholic beverages or use any recreational drugs for the first 24 hours or while taking pain medications. The medications in your body may have a reaction that can be dangerous. *Do Not make any important decisions or sign any important papers. Findings:Normal Follow up: repeat in 10 yrs time 1. No lifting over 20 pounds or strenuous activity for the first 24 hours after your procedure. After 24 hours there are no restrictions on your activity but you may feel fatigued for a few days. 2. After you arrive home you may have a light meal and return to your normal diet as you can tolerate it without feeling sick to your stomach. 3. You may have a bloated, gaseous feeling in your belly (abdomen) after a colonoscopy. Passing gas and belching will help. Walking or lying down on your left side with your knees flexed may relieve the discomfort. Call the office at [phone] (Office) or [phone] (Hospital) right away if you notice any of the following: a.Vomiting of blood or ?coffee ground stools?. b.Rectal bleeding 1Tbsp, blood clots or continuous bleeding. c.Severe belly (abdominal) pain. d.A hard distended belly (abdomen) and an inability to pass gas. 4. Please don?t expect to have a normal BM (bowel movement) for 2-3 days after your procedure. 5. If there are questions regarding the findings of your procedure, please conta ct your doctor 6. If you are unable to contact your doctor with a problem, contact the hospital at [phone]. 7. Continue all your regular medications unless directed otherwise. I understand the above instructions and have no questions. Signature of Patient or Adult Escort Name of Responsible Adult Escort Signature of Nurse Date/Time Activity:: as above Diet:: as above Discharge Orders Discharge Orders: Discharge Order (Routine); Ordered 11/02/20 Ordered By: Beryl Murphy DS: Diagnosis Discharge Diagnosis (1) Colon cancer screening: Status: Acute (2) Pilonidal cyst of cleft: Status: Acute
[2020-11-02 13:01] VITALS: BP 128/74; PULSE 56; RESP 16; TEMP 36.5; O2SAT 98
--- NOTE | 2020-11-02 13:22 | W.ANESPOSTOP ---
Postoperative Evaluation Date, Time and Location Date Performed: 11/02/20 Time Performed: :22 Patient Location: Day Surgery Unit Vital Signs Most Recent Imported Vital Signs: Most Recent Vital Signs Temp Pulse Resp BP Pulse Ox 36.5 C 56 L 16 128/74 98 11/02/20 13:01 11/02/20 13:01 11/02/20 13:01 11/02/20 13:01 11/02/20 13:01 Pain Score Most Recent Pain Score: Most Recent Pain Score Pain Level 0 11/02/20 13:01 Assessment Mental Status: Awake (Alert & Oriented to Patient Baseline) Airway and Respiratory Function: Patent airway with normal (patient baseline) respiratory exam Cardiovascular Function: Hemodynamically Stable Hydration Status: Adequately Hydrated Nausea & Vomiting: No Nausea or Vomiting Pain: Pt. Denies Any Pain Peripheral Nerve Block: Patient did not receive a nerve block
== END 2020-11-02 13:18 | disposition home or self-care (01) ==
PROVIDERS: PCP Nurse Practitioner Family; Visit Provider Surgery
PROC: 0DJD8ZZ Inspection of Lower Intestinal Tract, Via Natural or Artificial Opening Endoscopic (ICD-10-PCS; CPT 45378; principal; 2020-11-02 11:00)
DX: Z12.11 Encounter for screening for malignant neoplasm of colon (principal); L05.91 Pilonidal cyst without abscess; I25.10 Atherosclerotic heart disease of native coronary artery without angina pectoris
CPT/HCPCS: 45378; J2001; J2704

== ENCOUNTER 2021-09-06 15:05 | Outpatient (REF) | payer MEDICAID, SELFPAY ==
[2021-09-06 21:14] LABS: ALT 24 U/L (14-59); AST 16 U/L (15-37); Albumin 3.9 g/dL (3.4-5.0); Alkaline Phosphatase 97 U/L (46-116); Anion Gap 9.2 mmol/L (3-11); BUN 14 mg/dL (7-18); Bilirubin, Total 0.4 mg/dL (0.2-1.0); CO2 27.8 mmol/L (21.0-32.0); CREATININE 0.9 mg/dL (0.55-1.02); Calcium 8.5 mg/dL (8.5-10.1); Calculated LDL 93 mg/dL (<100); Chloride 105 mmol/L (98-107); Cholesterol 174 mg/dL (<200); Glucose 103 mg/dL (74-106); HDL Cholesterol 70 mg/dL (40-60); Potassium 4.1 mmol/L (3.5-5.1); Sodium 142 mmol/L (136-145); Total Protein 6.9 g/dL (6.4-8.2); Triglyceride 57 mg/dL (<150)
== END 2021-09-06 15:06 | disposition home or self-care (01) ==
LOC: NCHCN 15:05
PROVIDERS: PCP Nurse Practitioner Family; Visit Provider Nurse Practitioner Family
DX: M54.9 Dorsalgia, unspecified (principal); N39.3 Stress incontinence (female) (male)
CPT/HCPCS: 80053; 80061

== ENCOUNTER 2021-10-03 13:33 | Outpatient (CLI) | payer MEDICAID, SELFPAY ==
--- NOTE | 2021-10-03 13:30 | RT.EKG_ITS ---
APPROVED REPORT Exam: Resting ECG Reason for Exam: CAD Patient Location: O HR:63 bpm ECG Measurements Heart Rate 63 AXIS MT 119 P 39 QRSd 113 QRS -13 QT 414 T -15 QTc 424 Conclusion Sinus rhythm...normal P axis, V-rate 50- 99 Borderline short MT interval...MT int <120mS Incomplete right bundle branch block...QRSd >112, terminal axis(90,270) Low voltage, precordial leads...precordial leads <1.0mV
== END 2021-10-03 13:34 | disposition home or self-care (01) ==
LOC: DI.CARD 13:34
PROVIDERS: PCP Nurse Practitioner Family; Visit Provider Internal Medicine Cardiovascular Disease
DX: I25.10 Atherosclerotic heart disease of native coronary artery without angina pectoris (principal)
CPT/HCPCS: 93010

== ENCOUNTER 2021-10-09 01:17 | Outpatient (CLI) | payer MEDICAID, SELFPAY ==
--- NOTE | 2021-10-09 15:30 | DI.MAMMO_ITS ---
Exam(s) MAMMO SCREENING EXAM: MAMMO SCREENING CLINICAL HISTORY: SCREENING, FAMILY H/O BREAST CA, Z80.3, PREVENTATIVE HEALTH CARE, Z00.00 TECHNIQUE: Mammograms were interpreted according to the usual protocol including computer analysis w [employer] CAD system, tomosynthesis and C-view imaging. COMPARISON: FINDINGS: The breasts are very dense. No dominant mass or clumped microcalcification is identified either katie st. Areas of nodularity are again noted in retroareolar portion of the right breast, unchanged from prior studies including July 2020. IMPRESSION: No specific evidence of malignancy at this time. Routine screening examinations are suggested at yea rly intervals in this age group according to the ACS ACR guidelines BI-RADS Category 1 - Negative Breast Density - Category D - Extremely dense
== END 2021-10-09 01:37 ==
PROVIDERS: PCP Nurse Practitioner Family; Visit Provider Nurse Practitioner Family
DX: Z12.31 Encounter for screening mammogram for malignant neoplasm of breast (principal); Z80.3 Family history of malignant neoplasm of breast
CPT/HCPCS: 77063; 77067

== ENCOUNTER 2022-06-06 16:03 | Outpatient (REF) | payer MEDICARE, SELFPAY ==
[2022-06-06 21:08] LABS: ESR 12 mm/hr (0-30)
[2022-06-06 21:09] LABS: Abs Immature Grans 0.01 10^3/uL (0.0-0.06); Absolute Basophil Count 0.06 10^3/uL (0.0-0.2); Absolute Eosinophil Count 0.17 10^3/uL (0.0-0.7); Absolute Lymphocyte Count 2.91 10^3/uL (1.2-3.4); Absolute Monocyte Count 0.54 10^3/uL (0.1-0.8); Absolute Neutrophil Count 4.32 10^3/uL (1.2-6.7); Basophils % 0.7; Eosinophils % 2.1; HCT 42.3 % (36.0-46.0); HGB 13.4 g/dL (11.2-15.7); Immature Grans % 0.1; Lymphocytes % 36.3; MCH 28.2 pg (27.0-33.0); MCHC 31.7 % (32.0-36.0); MCV 89 fL (80-95); MPV 11.6 fL (8.0-11.0); Monocytes % 6.7; Neutrophils % 54.1; Platelet Count 218 10^3/uL (130-400); RBC 4.76 10^6/uL (3.93-5.22); RDW 12.7 % (11.7-14.6); RDW-SD 41.3 fL; WBC 8.01 10^3/uL (4.4-10.8)
[2022-06-06 21:48] LABS: ALT 23 U/L (14-59); AST 23 U/L (15-37); Albumin 4.2 g/dL (3.4-5.0); Alkaline Phosphatase 100 U/L (46-116); Anion Gap 8.5 mmol/L (3-11); BUN 14 mg/dL (7-18); Bilirubin, Total 0.6 mg/dL (0.2-1.0); CO2 29.5 mmol/L (21.0-32.0); CREATININE 0.8 mg/dL (0.55-1.02); Calcium 9.1 mg/dL (8.5-10.1); Chloride 103 mmol/L (98-107); Estimated GFR 81.72 (mL/min/1.73m2); Folate 19.2 ng/mL (8.6-20.0); Glucose 91 mg/dL (74-106); Potassium 4.1 mmol/L (3.5-5.1); Sodium 141 mmol/L (136-145); TSH (W/Ref FT4) 0.49 uIU/mL (0.36-3.74); Total Protein 7.3 g/dL (6.4-8.2); Vitamin B12 373 pg/mL (193-986)
[2022-06-09 15:10] LABS: ANA Interpretation Negative (Negative)
== END 2022-06-06 16:04 | disposition home or self-care (01) ==
LOC: NCHCN 16:03
PROVIDERS: PCP Nurse Practitioner Family; Visit Provider Nurse Practitioner Family
DX: R13.10 Dysphagia, unspecified (principal); R47.01 Aphasia
CPT/HCPCS: 80053; 85652; 82607; 82746; 84443; 85025; 86038

== ENCOUNTER 2022-06-25 11:56 | Outpatient (CLI) | payer MEDICARE, OTHER, SELFPAY ==
[2022-06-25] MEDS: Normal Saline Flush 10 ML SYR IVP (10:09)
--- NOTE | 2022-06-25 10:40 | DI.MRI_ITS ---
Exam(s) MR BRAIN WO/W EXAM: MR BRAIN WO/W CLINICAL HISTORY: DYSPHAGIA, APHASIA, R13.10, R47.01. TECHNIQUE: Multiplanar multisequence MRI of the brain was performed. CONTRAST MATERIAL: IV Contrast: 9 ML of Dotarem contrast administered. COMPARISON: No exams were available for comparison FINDINGS: VENTRICLES AND EXTRA AXIAL SPACES: Normal in size and morphology for the patient's age. HEMORRHAGE: None. CEREBRAL PARENCHYMA: Scattered tiny foci of high signal in the white matter bilaterally which appears somewhat prominent for the patient's age. Findings could represent microvascular changes. No focus of restricted diffusion to suggest acute infarct. No space-occupying lesion identified. MIDLINE SHIFT: None. BRAINSTEM/CEREBELLUM: Normal. CALVARIUM: Normal. ENHANCEMENT: No suspicious enhancement identified. VISUALIZED PARANASAL SINUSES/MASTOIDS: Clear. OTHER FINDINGS: None. IMPRESSION: Bilateral scattered foci of high signal in the white matter likely reflecting chronic microvascular c hanges. DATA REPOSITORY:
== END 2022-06-25 12:16 ==
LOC: DI 11:57
PROVIDERS: PCP Nurse Practitioner Family; Visit Provider Nurse Practitioner Family
DX: R13.10 Dysphagia, unspecified (principal); R47.01 Aphasia; R90.82 White matter disease, unspecified
CPT/HCPCS: 70553

== ENCOUNTER 2022-07-21 15:48 | Outpatient (REF) | payer MEDICARE, OTHER, SELFPAY ==
[2022-07-21 21:33] LABS: Folate 16.2 ng/mL (8.6-20.0)
[2022-07-23 11:08] LABS: Lyme Ab w Rflx to Lyme Confirm Negative (Negative)
[2022-07-24 15:45] LABS: Anaplasma phagocytophilum Negative (Negative); B. miyamotoi PCR Negative (Negative); Babesia divergens/MO-1 Negative (Negative); Babesia duncani Negative (Negative); Babesia microti Negative (Negative); Ehrlichia chaffeensis Negative (Negative); Ehrlichia ewingii/canis Negative (Negative); Ehrlichia muris eauclairensis Negative (Negative)
== END 2022-07-21 15:49 | disposition home or self-care (01) ==
LOC: NCHCN 15:48
PROVIDERS: PCP Nurse Practitioner Family; Visit Provider Nurse Practitioner Family
DX: R29.810 Facial weakness (principal); R47.1 Dysarthria and anarthria; R47.01 Aphasia; R13.10 Dysphagia, unspecified; Z11.8 Encounter for screening for other infectious and parasitic diseases
CPT/HCPCS: 87798; 82746; 83519; 86618

== ENCOUNTER → 2022-08-28 13:49 | Outpatient (BNVA) | payer MEDICARE, OTHER, SELFPAY | PROVIDERS: PCP Nurse Practitioner Family; Referring Provider Nurse Practitioner Family; Visit Provider Psychiatry & Neurology Neurology | DX: R47.1 Dysarthria and anarthria (principal); R13.10 Dysphagia, unspecified; F41.9 Anxiety disorder, unspecified; R25.3 Fasciculation; R25.1 Tremor, unspecified | CPT/HCPCS: 99215 ==

== ENCOUNTER 2022-09-02 12:17 | Outpatient (CLI) | payer MEDICARE, OTHER, SELFPAY ==
--- NOTE | 2022-09-02 10:00 | DI.MRI_ITS ---
Exam(s) MR CERVICAL SPINE WO EXAM: MR CERVICAL SPINE WO CLINICAL HISTORY: c-spine compression?, dysarthria, fasciculations, R47.1, R25.3 TECHNIQUE: Multiplanar multisequence MRI of the cervical spine was performed without intravenous con trast. COMPARISON: MR MR BRAIN WO/W from 06/25/2022 FINDINGS: BONES: Vertebral body heights are maintained. Alignment is normal. Bone marrow signal intensity is wi thin normal limits. CERVICAL CORD: Craniovertebral junction is unremarkable. The cervical cord is normal size and signal intensity. SOFT TISSUES: Unremarkable. C2-3: No disc herniation or bulge is identified. No evidence of neural foraminal narrowing. No signi ficant central canal stenosis C3-4: No disc herniation or bulge is identified. No evidence of neural foraminal narrowing. No signif icant central canal stenosis C4-5: No disc herniation or bulge is identified. No evidence of neural foraminal narrowing. No signif icant central canal stenosis C5-6: Mild loss of disc height. Small endplate osteophytes and mild concentric disc bulging. Mild r eduction in the AP dimension of the central canal. Mild to moderate neural foraminal narrowing bila terally. C6-7: Mild loss of disc height. Small endplate osteophytes and mild disc bulging. Cerv-sl-gvsyxgfa bilateral neural foraminal narrowing. No significant central canal stenosis C7-T1: No disc herniation or bulge is identified. No evidence of neural foraminal narrowing. No signi ficant central canal stenosis T1-2: Small central disc protrusion. No impingement on the cord. Normal disc height. No significan t central canal stenosis or neural foraminal narrowing. IMPRESSION: Degenerative disc changes C5-6 C6-7 causing [id number]-yoqj[place] bilateral neural foraminal narrowing. Small central disc protrusion T1-2 DATA REPOSITORY:
== END 2022-09-02 12:37 ==
LOC: DI 12:18
PROVIDERS: PCP Nurse Practitioner Family; Visit Provider Psychiatry & Neurology Neurology
DX: M50.322 Other cervical disc degeneration at C5-C6 level; M50.323 Other cervical disc degeneration at C6-C7 level; M51.24 Other intervertebral disc displacement, thoracic region; R47.1 Dysarthria and anarthria; R25.3 Fasciculation
CPT/HCPCS: 72141

== ENCOUNTER 2022-09-10 15:05 | Outpatient (REF) | payer MEDICARE, OTHER, SELFPAY ==
[2022-09-11 03:15] LABS: TSH (W/Ref FT4) 0.66 uIU/mL (0.36-3.74); Vitamin B12 510 pg/mL (193-986)
[2022-09-16 10:20] LABS: Methylmalonic Acid 0.29 nmol/mL (<=0.40)
== END 2022-09-10 15:06 | disposition home or self-care (01) ==
LOC: NCHCN 15:05
PROVIDERS: PCP Nurse Practitioner Family; Visit Provider Family Medicine
DX: R63.4 Abnormal weight loss (principal); F41.8 Other specified anxiety disorders; I25.10 Atherosclerotic heart disease of native coronary artery without angina pectoris; Z79.899 Other long term (current) drug therapy; Z51.81 Encounter for therapeutic drug level monitoring
CPT/HCPCS: 80186; 82607; 84443

== ENCOUNTER 2022-09-18 03:03 | Outpatient (CLI) | payer MEDICARE, OTHER, SELFPAY ==
[2022-09-18] MEDS: Inhaler, Assist Device 1 EACH MC (16:43)
[2022-09-18] MEDS: Albuterol HFA 18 GM 200 PUFF INH IH (16:43)
--- NOTE | 2022-09-19 15:57 | W.PFT ---
Date of service: 09/18/22 Time of Service: 15:06 Pulmonary Function Test Result Indications: Dyspnea on exertion Interpretation Spirometry: There is no airflow limitation. There is no significant bronchodilator response. MIP is within normal range. MEP is low. Lung Volumes: There is a mild restriction. Diffusion Capacity: Unable to perform Airway Pressure: Normal airway resistance Impression Mild restrictive lung disease. Normal MIP lends against a neuromuscular cause. Diffusion unable to be perfomed, but consider ILD as a possible cause. Clinical Correlation therefore is recommended.
== END 2022-09-18 03:04 | disposition home or self-care (01) ==
LOC: RT 03:03
PROVIDERS: PCP Nurse Practitioner Family; Visit Provider Family Medicine
DX: J98.4 Other disorders of lung (principal)
CPT/HCPCS: 94060; 94726

== ENCOUNTER 2022-10-22 01:42 | Outpatient (CLI) | payer MEDICARE, OTHER, SELFPAY ==
--- NOTE | 2022-10-22 15:31 | DI.RAD_ITS ---
Exam(s) RF MODIFIED SPEECH BA SWALLOW TECHNIQUE: Modified barium swallow was performed in conjunction with speech pathology. CONTRAST MATERIAL: Oral barium contrast was administered. COMPARISON: No exams were available for comparison FINDINGS: Note that this is not a dedicated esophagram, distal esophagus not evaluated. There is no evidence of aspiration or penetration of thick or thin liquids, barium coated cookie and barium paste. Speech pathology report to follow. Aspiration was observed during the examination. Th e patient exhibited a weak cough reflex. IMPRESSION: Aspiration was observed during the examination. The speech pathology report is to follow. RADIATION DOSE DELIVERED: sendy Romano=7.49 mGy
--- NOTE | 2022-10-22 15:33 | ST.MBS_ITS ---
Date of Service Date of service: 10/22/22 Time of Service: 14:30 Modified Barium Swallow Study Findings: Video fluoroscopic Swallowing Evaluation (VFSE) / Modified Barium Swallow Study (MBSS) Speech Language Pathology Report Patient referred for VFSE/MBSS from Dr. Smith given progressive dysphagia. HPI & Patient report of function: Patient is a 66 year old F with recent new onset dysarthria and dysphagia especially to liquids. PFSH All Active Problems?(Updated 10/17/22 @ 12:19 by Christy Starkey) Dysphagia (Acute) Dysarthria and anarthria (Acute) Anxiety (Chronic) Palliative care patient (Acute) Dysarthria (Acute) Fasciculations (Acute) Tremulousness (Acute) Pilonidal cyst of cleft (Acute) Colon cancer screening (Acute) CAD (coronary artery disease) (Chronic) Distal radius fracture, right (Acute ~05/14/19) Medical History? Anxiety and depression Back pain Decreased hearing TRUONG (dyspnea on exertion) denies thisFamily history of breast cancer History of kidney stones Osteopenia Pain in right wrist Stress incontinence Suprapubic pain Thumb pain Surgical History? H/O heart artery stent (~11/2018) ANN MARIE to RCA-no longer has to f/u with cardiologyNormal colonoscopy (~11/02/20) IMPRESSIONS: Swallow safety is impaired; swallow efficiency is impaired. Moderate oropharyngeal dysphagia. Characterized by poor tongue base retraction, poor oral lingual transit, delayed pharyngeal initiation, and reduced laryngeal elevation resulting in aspiration and penetration of thin> mildly thickened liquids. Penetration occurs during the swallow and aspiration occurs both during and after swallow of laryngeal residue for thin liquids. 1 instance of aspiration with mildly thickened liquids when taking large volume/consecutive sips, otherwise mildly thick liquids resulted in reduced depth and volume of penetration adequate to prevent aspiration. Swallow is further characterized by the deficits outlined in objecitve below. Patient appears to be at low-moderate risk for potential aspiration PNA and/or pulmonary compromise given high activity/mobility level at this time and low, low risk for dehydration. Risks will be further reduced with additional training in swallow strategies and risk management. Diet modification is indicated; non-oral nutrition is not indicated. Swallow prognosis is guarded given: suspicion of degenerative bulbar sx. Positive prognostic factors: Age, Motivation, Effectiveness of trialed compensatory strategies, Negative prognostic factors: Severity, unknown underlying diagnosis. and pending patient/caregiver training in risk management as outlined, including use of trialed compensatory strategies. Patient appears to be a good candidate for behavioral swallow rehabilitation. Suggested specialist referrals:? RD as needed in future? RECOMMENDATIONS: Diet Texture Recommendation:? IDDSI LEVEL SOLIDS 6-Soft & Bite-Sized Solids LIQUIDS 0-Thin Liquids with very small sips Please see further details at?www.iddsi.org http://www.iddsi.org/ MEDICATIONS Whole with 4-Puree Diet texture modification is per patient's preference; please adjust diet textures at patient's discretion & collaboration with care team. Do not alter medications (e.g., cut)? without advice from your MD or pharmacist. Risk Management Strategies:? Small bites, approx [id number] Very small sips, approx 5mL / teaspoon Encourage avoidance of straws Alternate solids/liquids as able Multiple swallows per bolus to encourage clearance of oral-pharyngeal stasis/residue Control risk factors for aspiration pneumonia via (a) thorough oral hygiene & (b) maintaining physical mobility as tolerated PLAN: Therapy: Recommend subsequent outpatient session with URGENT CARE NURSE PRACTITIONER to review results of today's exam and develop treatment plan as appropriate. May consider the following: Further Compensatory Strategy Training, Further Training/Education in Risk Management, Further Counseling re: Options for maintaining quality of life in context of dysphagia presentation Goals: TBD pending patient/caregiver interview. Patient may prefer to be followed by [facility] URGENT CARE NURSE PRACTITIONER pending diagnosis. Follow-up exam: Recommend repeat VFSE/MBSS prn ----- OBJECTIVE Videofluoroscopic Swallow Evaluation (VFSE/MBSS) was conducted in the lateral and [id number] projection by Speech-Language Pathologist, in collaboration with Radiologist, to evaluate oropharyngeal swallow function. Brief oral motor exam prior to VFSS shows CN V, VII, and XII weakness as well as reduced ROM. Anatomic view under fluoroscopy: WFL PO Barium Contrast Trials Oral barium water-soluble contrast was administered as follows: IDDSI Level 0 Varibar thin liquid (40% w/v) IDDSI Level 2 Varibar nectar thick/mildly thick liquid (40% w/v) IDDSI Level 4 Varibar pudding/pureed/extremely thick (40% w/v) IDDSI Level 7 Regular Solid: 1/2 wilmer cracker coated in 3 mL Varibar pudding 13 mm barium tablet taken with Mildly thick Liquids. MBSImP Component Scores: COMPONENT Scale SCORE 1 Lip closure (0-4) 2 Resulted in escape from interlabial space or lateral juncture, but no extension beyond vermilion border 2 Hold Position (0-3) 0I Maintained a cohesive bolus between tongue to palatal seal 3 Bolus Preparation (0-4) 1 Resulted in slow prolonged chewing/mashing with complete re-collection 4 Bolus Transport (0-4) 2 Was with slowed tongue motion 5 Oral Residue (0-4) 2 Was a collection on oral structures 6 Swallow Initiation (0-4) 3 Occurred when the bolus head was in the pyriform sinuses 7 Soft Palate Elevation (0-4) 0 Resulted in no bolus between soft palate and t he pharyngeal wall 8 Laryngeal Elevation (0-3) 1 Was decreased with partial superior movement of thyroid cartilage/partial approximation of arytenoids to epiglottic petiole 9 Anterior Hyoid Motion (0-2) 1 Demonstrated partial anterior movement 10 Epiglottic Movement (0-2) 1 Resulted in partial inversion 11 Laryngeal Closure (0-2) 1 Was incomplete with narrow a column of air/contra st in laryngeal vestibule 12 Pharyngeal Stripping Wave (0-2) 0 Was present and complete 13 Pharyngeal Contraction (0-3) 0 Was complete 14 PES Opening (0-3) 0 Was completely distended and complete duration with no obstruction of flow 15 Tongue Base Retraction (0-4) 3 Allowed a wide column of contrast or air between the retracted tongue base and the posterior pharyngeal wall 16 Pharyngeal Residue (0-4) 2 Was a collection of residue within or on pharyngeal structures 17 Esophageal Clearance (0-4) NA Observations not captured in numerical data above: Penetration primarily occurred during the swallow, but aspiration occurred during as well as after from residue in the laryngeal vestibule via anterior commissure. While aspiration did occur with thin liquids as well as thick liquids, the degree and frequency was increased with thin>thickened. No aspiration occurred with tsp size thin liquids. Aspiration only occurred for mildly thick liquids when taking multiple large consecutive sips and when taking mixed textures (pill + liquid). Poor tongue stripping and tongue base retraction appeared to be primary factor for oral and pharyngeal residue which was mild-moderate. Intermittent pyriform residues for liquids primarily from post-swallow pooling. Results: COMPONENT Scale SCORE 1 Oral Score (0-18) 8 2 Pharyngeal Score (0-29) 9 3 Esophageal Score (0-4) 0 Dysphagia Outcome and Severity Scale: COMPONENT Scale SCORE 1 LEVEL (1-7) NA Penetration-Aspiration Scale: COMPONENT Scale SCORE 1 Thin liquid (1-8) 8 Contrast entered the airway, passed below the vocal fold s, and no effort was made to eject. 2 Victor thick (1-8) 8 Contrast entered the airway, passed below the vocal folds, and no effort was made to eject. only with high-volume consecutive sips. 3 Honey thick (1-8) NA A 4 Pudding thick (1-8) 1 Contrast did not enter the airway 5 Cookie (1-8) 1 Contrast did not enter the airway Trialed Compensatory Strategies & Outcome: Maneuvers Successful (+) Unsuccessful (-) Postures Successful (+) Unsuccessful (-) 3 second Preparatory Set? ? +/- Chin Tuck Posture? ? + appeared to reduce amount/depth of aspiration Cough? ? Posterior Head tilt?? ? - ? Reflexive? Cued? Throat Clear? ? Head Tilt to? Reflexive? Left? Cued? Right? ? Saliva swallow? ? + Head Turn/Rotate to? ? Supraglottic Swallow? Left? ? Super-supraglottic Swallow? Right? ? + appeared to reduce amount/depth of aspiration Bolus Modifications Successful (+) Unsuccessful (-) Delivery/Alternating Consistencies ? Follow with Liquid Wash ? Follow with Solid Bolus? Delivery/Via Straw? ? Reduced Volume? ? + Reduced Rate of Intake? ? + Increased Viscosity? ? + Other:?? ? Thank you for allowing us to take part in this patient's care. Please feel free to contact the [facility] Speech Language Pathology Department with any questions/concerns. Coding CPT Codes MOTION FLUOROSCOPY/SWALLOW - [id number] ([id number])
[2022-10-22] MEDS: Barium Sulfate 700 MG TAB PO (15:38)
[2022-10-22] MEDS: Barium Sulfate Oral Paste 40% W/V 230 ML TUBE 13 ML PO (15:39)
[2022-10-22] MEDS: Barium Sulfate 40% W/V 240 ML BTL 80 ML PO (15:40)
[2022-10-22] MEDS: Barium Sulfate 81% w/w for Oral Suspension 148 GM BTL 48 GM PO (15:42)
== END 2022-10-22 02:02 ==
PROVIDERS: PCP Nurse Practitioner Family; Visit Provider Family Medicine
DX: R13.12 Dysphagia, oropharyngeal phase (principal)
CPT/HCPCS: 92526; 74221

== ENCOUNTER → 2022-10-27 09:17 | Outpatient (BNVA) | payer MEDICARE, OTHER, SELFPAY | PROVIDERS: PCP Nurse Practitioner Family; Referring Provider Nurse Practitioner Family; Visit Provider Psychiatry & Neurology Neurology | DX: R47.1 Dysarthria and anarthria (principal); R25.3 Fasciculation; R13.10 Dysphagia, unspecified; F41.9 Anxiety disorder, unspecified; R25.1 Tremor, unspecified | CPT/HCPCS: 95885; 95887; 95910; 99215 ==

== ENCOUNTER 2022-12-03 15:34 | Emergency (ER) | payer MEDICARE, OTHER, SELFPAY ==
[2022-12-03] VITALS (37 sets, daily range): BP systolic 152–197; BP diastolic 94–136; PULSE 91–132; RESP 18–32; TEMP 36.9; O2SAT 92–96
--- NOTE | 2022-12-03 15:45 | RT.EKG_ITS ---
APPROVED REPORT Exam: Resting ECG Reason for Exam: tachycardia Patient Location: E HR:113 bpm ECG Measurements Heart Rate 113 AXIS TN 103 P 42 QRSd 97 QRS 261 QT 332 T 2 QTc 447 Conclusion Sinus tachycardia...rate> 99 Atrial premature complexes...SV complexes w/ short R-R intvls no stemi Inferior infarct, old...Q >35mS, II III aVF
--- NOTE | 2022-12-03 15:45 | DI.CT_ITS ---
Exam(s) CT CHEST PE CTA EXAM: CT CHEST PE CTA CLINICAL HISTORY: shortness of breath, recent surgery. TECHNIQUE: Imaging Protocol: CT angiography of the chest was performed using pulmonary embolus jonathan col. Multi planar reconstructions were performed. CONTRAST MATERIAL: Intravenous: Omnipaque 350 Contrast volume: 100 cc COMPARISON: CT DI.CTAPWO from 02/28/2018 FINDINGS: CHEST: PULMONARY ARTERIES: There are no intraluminal filling defects to suggest acute pulmonary emboli. LUNGS: There is atelectasis in the right lung base. Also in the left lung base and mild consolidated lung tissue in the posterior basal segment left lower lobe.. There are no pleural effusions. MEDIASTINUM: There is no hilar nor mediastinal adenopathy. Visualized thyroid unremarkable. CARDIAC: Heart size is upper normal. There is no pericardial effusion.Caliber of the thoracic aorta is within normal limits. No dissection. There is no significant shift of the interventricular septum . PARTIALLY VISUALIZED UPPERMOST ABDOMEN: Prominent pneumoperitoneum noted. Apparently related to rece nt surgery. OSSEOUS: No significant osseous lesions.. IMPRESSION: 1. No evidence of acute pulmonary emboli. No evidence of pulmonary infarction.Some atelectasis in felicia th lung bases. No prominent infiltrates. 2. Prominent pneumoperitoneum is noted. Correlate with surgical history versus ruptured viscus. First read by [facility]. RADIATION DOSE DELIVERED: 182.75mGy.cm Total DLP DATA REPOSITORY: All CT scans at this facility are submitted to the National Radiology Data Registry (NRDR) Dose Index Registry (DIR) with the [employer] (A[employer]). RADIATION OPTIMIZATION: All CT scans at this facility use at least one of these dose optimization te chniques: automated exposure control; mA and/or kV adjustment per patient size (includes targeted exa ms where dose is matched to clinical indication); or iterative reconstruction.
--- NOTE | 2022-12-03 15:58 | ED.GENADUL_ITS ---
Discharge Plan Disposition Patient Disposition: Home Discharge Details Chief Complaint: GenMedical Clinical Impression: Shortness of breath, Hypertension Primary Care Provider: Myriam Kapoor ED Provider: Devon Lopez Home Meds and New Rx's Prescriptions: New metoprolol succinate 25 mg capsule,sprinkle,ER 24hr 25 mg PO DAILY Qty: 30 0RF Continued nitroglycerin 0.4 mg tablet, sublingual 0.4 mg SL Q5M PRN mecobalamin (vitamin B12) 1,000 mcg tablet,chewable 1,000 mcg PO DAILY PRN vitamin B complex [B Complex-Vitamin B12] Tablet 1 tab PO DAILY PRN sertraline [Zoloft] 100 mg tablet 50 mg PO DAILY atorvastatin 20 mg tablet 20 mg PO QHS Patient Comments: no longer taking 12/03/22 CT cetirizine [All Day Allergy (cetirizine)] 10 mg tablet 10 mg PO DAILY PRN aspirin [Adult Low Dose Aspirin] 81 mg tablet,delayed release (DR/EC) 81 mg PO DAILY ondansetron HCl 4 mg tablet 4 mg PO BID PRN cyclobenzaprine 5 mg tablet 5 mg PO DAILY PRN simvastatin 40 mg tablet 40 mg PO QHS clonazepam 0.5 mg tablet 0.5 mg PO PRN PRN riluzole [Rilutek] 50 mg tablet 50 mg PO BID buspirone 5 mg tablet 5 mg PO BID Discontinued metoprolol succinate 25 mg tablet extended release 24 hr 50 mg PO DAILY Discharge Instructions Additional Instructions: You still have air in your abdomen from your surgery that will take time to resolve I have switched your metoprolol tot he capsule formulation follow up with your primary care provider within 1-2 weeks IF you feel more ill, have high fevers, severe abdominal pain or chest pain return to the emergency department Medical Decision Making 66 yo female who has a hx of htn, chronic dysphagia and being worked up for possible ALS and had PEG tube palced last week at [facility] comes in with general weakness and shortness of breath for 3 days. She is not sure if she is taking the right amount of fluids in her peg tube. She denies chest pain, headache, fevers, chills, abdominal pain. Her sister reports they were told not to crush the metoprolol she is on so she missed some doses of this. She is hypertensive and tachycardic on arrival, caox4 and moving all her extremities. She has no abdominal tenderness, and her peg tube site has no drainage or other evidence of infection, has been used without complications or issues at home. Lungs clear. Suspsect she is mildly dehydrated and will give IV fluids and given her associated shortness of breath proceed with ekg/troponin, cbc, cmp, and to evaluate for possible PE with her recent surgery obtain CTA of the chest. imaging shows no pe, no infiltrate, she does have pneuoperitoneum not unexpectedly after her surgery and her and her sister state that she did have a lot of air in the abdomen post op that surgery stated would take time to resolve. She still has no abdominal tenderness, urinating fine here without problems. She has a hr of 99 on my exam now. Per pharmacy the ER tablets should not be crushed, there are capsules which she can use in her PEG which I will prescribe for her and give her a one time dose of 12.5mg IR metoprolol to take tonight which pharmacy states she can crush. She will f/u with her pcp for management of her BP, stable for d/c, return precautions given Patient evaluated prior to d/c, still no abdominal tenderness so do not feel imaging of abdomen indicated at this time. All questions answered Differential Diagnosis Differential Diagnosis: pneumonia, dehydration, pe Medical Records Medical records reviewed: Yes I reviewed the patient's medical records. Imaging Data Radiologic Study: Attestation: I personally reviewed and interpreted this imaging study as follows: Imaging: CT Scan Radiologist's impression: IMPRESSION: 1. No pulmonary artery emboli allowing for motion in the lung bases. 2. Moderate pneumoperitoneum and percutaneous gastrostomy are partially imaged. Compatible with recent surgery a stated in the history. Potential mild left hydronephrosis also partially imaged. Consider follow-up imaging of the abdomen and pelvis if clinically indicated. 3. Trace bilateral pleural fluid. 4. Mild dependent subsegmental atelectasis. Lab Data Lab results reviewed: Yes I reviewed the patient's lab results. ECG Data Attestation: I personally reviewed and interpreted this ECG (s) as follows: Prior ECG tracings: available for review Interpretation: sinus tachycardia, rate of 113, qtc 447, no stemi HPI General Date/Time Provider Initiated Documentation: 12/03/22 15:39 . Limitations to Documentation: no limitations . Information obtained by: patient . History of Present Illness 66 year old F presents to the emergency department with the chief complaint of general weakness, described as moderate, Patient started experiencing this day(s) (2) and it has been constant. No relieving factors improve symptom(s), No exacerbating factors reported . Patient notes shortness of breath. Patient did receive the following treatments prior to arrival, none Related Data Home Medications Medication Instructions Recorded Confirmed nitroglycerin 0.4 mg sublingual 0.4 mg sublingual Q5M PRN 07/25/19 12/03/22 tablet aspirin 81 mg tablet,delayed 81 mg PO DAILY 06/12/22 12/03/22 release (Adult Low Dose Aspirin) atorvastatin 20 mg tablet 20 mg PO QHS 06/12/22 10/27/22 cetirizine 10 mg tablet (All Day 10 mg PO DAILY PRN 06/12/22 12/03/22 Allergy (cetirizine)) ondansetron HCl 4 mg tablet 4 mg PO BID PRN 06/12/22 12/03/22 vitamin B complex (B 1 tab PO DAILY PRN 08/07/22 12/03/22 Complex-Vitamin B12 tablet) cyclobenzaprine 5 mg tablet 5 mg PO DAILY PRN 09/25/22 12/03/22 mecobalamin (vitamin B12) 1,000 1,000 mcg PO DAILY PRN 10/17/22 12/03/22 mcg chewable tablet sertraline 100 mg tablet (Zoloft) 50 mg PO DAILY 10/27/22 12/03/22 clonazepam 0.5 mg tablet 0.5 mg PO PRN PRN 11/25/22 12/03/22 simvastatin 40 mg tablet 40 mg PO QHS 11/25/22 12/03/22 buspirone 5 mg tablet 5 mg PO BID anxiety 12/03/22 12/03/22 metoprolol succinate 25 mg capsule 25 mg PO DAILY #30 caps 12/03/22 sprinkle, ext. release 24 hr riluzole 50 mg tablet (Rilutek) 50 mg PO BID 12/03/22 12/03/22 Previous Rx's Medication Instructions Recorded metoprolol succinate 25 mg capsule 25 mg PO DAILY #30 caps 12/03/22 sprinkle, ext. release 24 hr Allergies Allergy/AdvReac Type Severity Reaction Status Date / Time No Known Allergies Allergy Verified 12/03/22 15:52 General Stated Complaint: GenMedical THELMA: 3 Review of Systems All systems reviewed & are unremarkable except as noted in HPI and below Constitutional Constitutional: Denies chills, Denies fever(s) and Reports weakness Cardiovascular Cardiovascular: Denies chest pain and Reports dyspnea Respiratory Respiratory: Denies cough and Reports dyspnea Gastrointestinal Gastrointestinal: Denies abdominal pain, Denies nausea and Denies vomiting Musculoskeletal Musculoskeletal: Denies joint swelling Neurologic Neurologic: Reports weakness Endocrine Endocrine: Denies heat intolerance PFSH All Active Problems (Updated 12/03/22 @ 19:17 by Devon Lopez MD) Shortness of breath (Acute) Hypertension (Chronic) Motor neuron disease (Acute) Weight loss (Acute) Dysphagia (Acute) Dysarthria and anarthria (Acute) Anxiety (Chronic) Dysarthria (Acute) Fasciculations (Acute) Tremulousness (Acute) Pilonidal cyst of sanjiv cleft (Acute) Colon cancer screening (Acute) CAD (coronary artery disease) (Chronic) Distal radius fracture, right (Acute ~05/14/19) Medical History (Updated 12/03/22 @ 19:17 by Devon Lopez MD) Abdominal discomfort Anxiety and depression Anxiety with depression Aphasia Back pain Back pain CAD (coronary artery disease) Decreased hearing Decreased hearing of both ears TRUONG (dyspnea on exertion) denies this Dyspnea on exertion Essential tremor Facial weakness Family history of breast cancer Family history of breast cancer Family history of breast cancer in first degree relative Headache Hematoma of vaginal vault after surgical procedure History of kidney stones Hypertension Kidney stones Muscle twitch Osteopenia Osteopenia Pain in right wrist Pain of left thumb Palliative care patient Post-nasal drip Screening for breast cancer Screening for colon cancer Stress incontinence Stress incontinence Suprapubic pain Thumb pain Surgical History (Updated 10/17/22 @ 12:19 by Christy Starkey) H/O heart artery stent (~11/2018) ANN MARIE to RCA-no longer has to f/u with cardiology Normal colonoscopy (~11/02/20) S/P breast lumpectomy S/P coronary artery stent placement Family History (System 10/17/22 @ 12:19 by Christy Starkey) Mother Hypertension Social History (System 10/17/22 @ 12:19 by Christy Starkey) Smoking/Tobacco Use Status: Never Smoking risk assessment performed?: Yes Alcohol Intake: never Drug use: Never Substance use type: does not use Household members: none Number of Children: 2 Education Level: college current occupation: Retired Current gender identity: female What type of physical activity do you participate in: additional Details: XCS Duration: 15-30 minutes/day Frequency: 3-4 times per week Do you feel safe at home: Yes Do you feel safe in your relationship?: Yes Exam Const General: no acute distress Orientation: alert HENMT Head: normal to inspection Ears: external ears normal General nose exam: external nose normal Mouth: moist mucous membranes Eyes General: appearance normal, both eyes and all related structures Neck Neck: normal visual inspection Resp Effort & Inspection: normal respiratory effort and able to speak in complete sentences Auscultation: clear to auscultation bilaterally Cardio Rate: tachycardic Heart Sounds: no murmurs GI Palpation: soft and nontender Skin General skin exam: no rashes or lesions noted Neuro General: patient alert and patient oriented x3 Extrem General: normal to inspection Psych Mental Status: mental status grossly normal Course Vital Signs Vital signs: Vital Signs Temperature 36.9 C 12/03/22 15:39 Pulse 132 H 12/03/22 15:39 Blood Pressure 189/117 H 12/03/22 15:39 Pulse Oximetry 95 12/03/22 15:39 Temperature 36.9 C 12/03/22 15:39 Temperature Source Temporal Artery Scan 12/03/22 15:39 Pulse 132 H 12/03/22 15:39 Respiratory Effort Short of Breath 12/03/22 15:45 Blood Pressure 189/117 H 12/03/22 15:39 Blood Pressure Position Sitting 12/03/22 15:39 Pulse Oximetry 95 12/03/22 15:39 Oxygen Delivery Method Room Air 12/03/22 15:39 Oxygen Flow Rate 0 12/03/22 15:39 Pain Level 0 12/03/22 15:39
[2022-12-03 16:25] LABS: Abs Immature Grans 0.04 10^3/uL (0.0-0.06); Absolute Basophil Count 0.06 10^3/uL (0.0-0.2); Absolute Eosinophil Count 0.17 10^3/uL (0.0-0.7); Absolute Lymphocyte Count 1.67 10^3/uL (1.2-3.4); Absolute Monocyte Count 0.85 10^3/uL (0.1-0.8); Absolute Neutrophil Count 8.49 10^3/uL (1.2-6.7); Basophils % 0.5; Eosinophils % 1.5; HCT 45.4 % (36.0-46.0); HGB 14.9 g/dL (11.2-15.7); Immature Grans % 0.4; Lymphocytes % 14.8; MCH 28.2 pg (27.0-33.0); MCHC 32.8 % (32.0-36.0); MCV 86 fL (80-95); Monocytes % 7.5; Neutrophils % 75.3; Platelet Count 338 10^3/uL (130-400); RBC 5.28 10^6/uL (3.93-5.22); WBC 11.28 10^3/uL (4.4-10.8)
[2022-12-03] MEDS: Normal Saline 1,000 ML 1000 ML IV ×2 (16:25→18:30)
[2022-12-03] MEDS: Normal Saline Flush 10 ML SYR IVP ×2 (16:25→18:30)
[2022-12-03 16:41] LABS: Magnesium 2.1 mg/dL (1.8-2.4); PTT Activated 24.5 sec (21.5-31.9); Prothrombin Time 9.8 sec (9.3-11.0)
[2022-12-03 16:47] LABS: ALT 50 U/L (14-59); AST 33 U/L (15-37); Albumin 3.4 g/dL (3.4-5.0); Alkaline Phosphatase 140 U/L (46-116); Anion Gap 6.9 mmol/L (3-11); BUN 17 mg/dL (7-18); Bilirubin, Total 0.3 mg/dL (0.2-1.0); CO2 32.1 mmol/L (21.0-32.0); CREATININE 0.7 mg/dL (0.55-1.02); Calcium 9.7 mg/dL (8.5-10.1); Chloride 102 mmol/L (98-107); Estimated GFR 95.92 (mL/min/1.73m2); Glucose 121 mg/dL (74-106); Lipase 70 U/L (16-77); Potassium 4.3 mmol/L (3.5-5.1); Sodium 141 mmol/L (136-145); Total Protein 7.9 g/dL (6.4-8.2); Troponin I < 50 ng/L (<or=60)
[2022-12-03] MEDS: Normal Saline - Diluent 50 ML VIAL IJ (17:08)
[2022-12-03] MEDS: Omnipaque 350 MG/ML 100 ML BTL IJ (17:08)
[2022-12-03 17:30] LABS: Bilirubin Negative (Negative); Blood Negative (Negative); Clarity Sl Cloudy (Clear); Glucose Negative (Negative); Ketones Negative (Negative); Leukocyte Esterase Negative (Negative); Nitrite Negative (Negative); Urobilinogen 0.2 mg/dL (Up to 0.2)
[2022-12-03 17:38] LABS: Bacteria Negative HPF (Negative); Epithelial Cells Rare HPF (Negative); RBC 0-2 HPF (0-2); WBC 0-2 HPF (0-5)
[2022-12-03 17:39] LABS: C & S Indicated? No; Casts Negative LPF (Negative); Crystals Few Amorphous HPF (Negative); Mucus Trace (Negative)
--- NOTE | 2022-12-03 17:55 | DI.VRAD_ITS ---
PROCEDURE INFORMATION: Exam: CTA Chest With Contrast Exam date and time: 12/03/2022 17:12 Age: 66 years old Clinical indication: Shortness of breath and other: Recent surg TECHNIQUE: Imaging protocol: Computed tomographic angiography of the chest with contrast. Exam focused on the arteries. 3D rendering (Not supervised by radiologist): MIP and/or 3D reconstructed images were created by the technologist. Contrast material: 350; Contrast volume: 60 ml; Contrast route: INTRAVENOUS (IV); COMPARISON: MR CERVICAL SPINE WO 09/02/2022 13:38 FINDINGS: Tubes, catheters and devices: Moderate pneumoperitoneum and percutaneous gastrostomy are partially imaged. Potential mild left hydronephrosis also partially imaged. Pulmonary arteries: No pulmonary artery emboli allowing for motion in the lung bases. Aorta: No aortic aneurysm. No aortic dissection. Lungs: Motion artifact in the lungs. Mild dependent subsegmental atelectasis. No airspace consolidation. Pleural spaces: Trace bilateral pleural fluid. No pneumothorax. Heart: No cardiomegaly. No pericardial effusion. Lymph nodes: No enlarged lymph nodes. Bones/joints: No acute fracture allowing for motion. Degenerative changes in the thoracic spine. Soft tissues: No suspicious lesions. IMPRESSION: 1. No pulmonary artery emboli allowing for motion in the lung bases. 2. Moderate pneumoperitoneum and percutaneous gastrostomy are partially imaged. Compatible with recent surgery a stated in the history. Potential mild left hydronephrosis also partially imaged. Consider follow-up imaging of the abdomen and pelvis if clinically indicated. 3. Trace bilateral pleural fluid. 4. Mild dependent subsegmental atelectasis. Dictated and Authenticated by: Annemarie Rojas MD. Ordering:MEÑO Osorio MD
[2022-12-03] MEDS: Metoprolol 12.5 MG TAB PO (19:26)
== END 2022-12-03 19:34 | disposition home or self-care (01) ==
PROVIDERS: Emergency Provider Emergency Medicine; PCP Family Medicine
DX: R06.02 Shortness of breath (principal); I10 Essential (primary) hypertension
CPT/HCPCS: 36415; 71275; 80053; 83690; 93005; 96360; 96361; 99285; 81003; 81015; 83735; 84484; 85025; 85610; 85730; 93010; 99284; J3490

== ENCOUNTER 2022-12-09 14:58 | Outpatient (REF) | payer MEDICARE, OTHER, SELFPAY ==
[2022-12-09 14:50] LABS: Abs Immature Grans 0.07 10^3/uL (0.0-0.06); Absolute Eosinophil Count 0.32 10^3/uL (0.0-0.7); Absolute Lymphocyte Count 1.57 10^3/uL (1.2-3.4); Absolute Monocyte Count 0.73 10^3/uL (0.1-0.8); Basophils % 1.1; Eosinophils % 2.4; HCT 45.4 % (36.0-46.0); HGB 14.6 g/dL (11.2-15.7); Immature Grans % 0.5; Lymphocytes % 11.9; MCH 27.8 pg (27.0-33.0); MCHC 32.2 % (32.0-36.0); MCV 86 fL (80-95); MPV 10.6 fL (8.0-11.0); Monocytes % 5.5; Neutrophils % 78.6; Platelet Count 466 10^3/uL (130-400); RBC 5.26 10^6/uL (3.93-5.22); RDW 13.2 % (11.7-14.6)
[2022-12-09 14:51] LABS: Absolute Basophil Count 0.15 10^3/uL (0.0-0.2); Absolute Neutrophil Count 10.38 10^3/uL (1.2-6.7)
[2022-12-09 15:13] LABS: Anion Gap 7.5 mmol/L (3-11); BUN 25 mg/dL (7-18); CO2 33.5 mmol/L (21.0-32.0); CREATININE 0.7 mg/dL (0.55-1.02); Calcium 9.5 mg/dL (8.5-10.1); Chloride 100 mmol/L (98-107); Estimated GFR 95.92 (mL/min/1.73m2); Glucose 94 mg/dL (74-106); Magnesium 2.3 mg/dL (1.8-2.4); Potassium 4.4 mmol/L (3.5-5.1); Sodium 141 mmol/L (136-145)
== END 2022-12-09 14:59 | disposition home or self-care (01) ==
LOC: NCHCN 14:58
PROVIDERS: PCP Family Medicine; Visit Provider Family Medicine
DX: R62.7 Adult failure to thrive (principal); G12.21 Amyotrophic lateral sclerosis; R94.2 Abnormal results of pulmonary function studies; I10 Essential (primary) hypertension; R63.4 Abnormal weight loss
CPT/HCPCS: 80048; 83735; 84100; 84425; 85025

== ENCOUNTER 2022-12-12 11:34 | Emergency (ER) | payer MEDICARE, OTHER, SELFPAY ==
[2022-12-12 11:48] VITALS: BP 152/75; PULSE 91; RESP 18; TEMP 37.2; O2SAT 97
--- NOTE | 2022-12-12 12:33 | NUR.NOTE ---
Nursing Note: Pt updated with room status and further wait time in waiting room. Pt in no signs of acute distress.
--- NOTE | 2022-12-12 13:44 | W.ED.GENAD ---
Discharge Plan Disposition Patient Disposition: Home Discharge Details Clinical Impression: Nausea & vomiting Primary Care Provider: Myriam Kapoor ED Provider: Ike Neal [place] Meds and New Rx's Prescriptions: New ondansetron 4 mg tablet,disintegrating 4 mg PO Q6H PRNQty: 20 0RF famotidine [Pepcid AC] 20 mg tablet 20 mg PO BID Qty: 30 0RF Continued nitroglycerin 0.4 mg tablet, sublingual 0.4 mg SL Q5M PRN mecobalamin (vitamin B12) 1,000 mcg tablet,chewable 1,000 mcg PO DAILY PRN vitamin B complex [B Complex-Vitamin B12] Tablet 1 tab PO DAILY PRN sertraline [Zoloft] 100 mg tablet 50 mg PO DAILY atorvastatin 20 mg tablet 20 mg PO QHS Patient Comments: no longer taking 12/03/22 CT cetirizine [All Day Allergy (cetirizine)] 10 mg tablet 10 mg PO DAILY PRN aspirin [Adult Low Dose Aspirin] 81 mg tablet,delayed release (DR/EC) 81 mg PO DAILY ondansetron HCl 4 mg tablet 4 mg PO BID PRN cyclobenzaprine 5 mg tablet 5 mg PO DAILY PRN simvastatin 40 mg tablet 40 mg PO QHS clonazepam 0.5 mg tablet 0.5 mg PO PRN PRN riluzole [Rilutek] 50 mg tablet 50 mg PO BID buspirone 5 mg tablet 5 mg PO BID metoprolol succinate 25 mg capsule,sprinkle,ER 24hr 25 mg PO DAILY Qty: 30 0RF Medical Decision Making 66-year-old lady with ALS who had a G-tube placed on November 26. Had a few weeks where the G-tube broke well developed some nausea. Was seen at [facility] with an extensive work-up yesterday that revealed that she may have a small fluid collection/abscess at the junction of the stomach and the G-tube. Presents today for persistent nausea. She states that she was hydrated at [facility] and was able to tolerate her feeds. Not sent home with an antiemetics. I do not see reason for repeating blood work at this point., She will be treated with some IV hydration and a trial of Zofran as well as Pepcid. If she tolerates this well, I believe that it is safe for her to be discharged home to continue her feeds, antibiotics as prescribed by [facility] as well as with some Zofran and Pepcid. HPI General Date/Time Provider Initiated Documentation: 12/12/22 11:48. HPI Narrative: 66-year-old lady presented to the emergency room with a persistent concern of nausea vomiting. She has ALS and had a peg tube placed on November 26. As of 2 days ago the feedings are going well. She started with some nausea vomiting and went to [facility] yesterday for evaluation. She was diagnosed with a small abscess at the insertion site of the PEG tube into the stomach. She was evaluated by surgery who recommended Augmentin and to continue with the feeds. She tolerated 1 dose of antibiotics last night and as of this morning did not tolerate her first feed. She feels nauseous. She is not on any antiemetics. He is not also taking into the antacid medication. No fevers no chills. No abdominal pain. Work-up in the emergency department yesterday included CBC chemistries as well as a lactic acid, reported as normal. Chest x-ray and CT scan of the abdomen pelvis were also done. Related Data Home Medications Medication Instructions Recorded Confirmed nitroglycerin 0.4 mg sublingual 0.4 mg sublingual Q5M PRN 07/25/19 12/03/22 tablet aspirin 81 mg tablet,delayed 81 mg PO DAILY 06/12/22 12/03/22 release (Adult Low Dose Aspirin) atorvastatin 20 mg tablet 20 mg PO QHS 06/12/22 10/27/22 cetirizine 10 mg tablet (All Day 10 mg PO DAILY PRN 06/12/22 12/03/22 Allergy (cetirizine)) ondansetron HCl 4 mg tablet 4 mg PO BID PRN 06/12/22 12/03/22 vitamin B complex (B 1 tab PO DAILY PRN 08/07/22 12/03/22 Complex-Vitamin B12 tablet) cyclobenzaprine 5 mg tablet 5 mg PO DAILY PRN 09/25/22 12/03/22 mecobalamin (vitamin B12) 1,000 1,000 mcg PO DAILY PRN 10/17/22 12/03/22 mcg chewable tablet sertraline 100 mg tablet (Zoloft) 50 mg PO DAILY 10/27/22 12/03/22 clonazepam 0.5 mg tablet 0.5 mg PO PRN PRN 11/25/22 12/03/22 simvastatin 40 mg tablet 40 mg PO QHS 11/25/22 12/03/22 buspirone 5 mg tablet 5 mg PO BID anxiety 12/03/22 12/03/22 metoprolol succinate 25 mg capsule 25 mg PO DAILY #30 caps 12/03/22 sprinkle, ext. release 24 hr riluzole 50 mg tablet (Rilutek) 50 mg PO BID 12/03/22 12/03/22 famotidine 20 mg tablet (Pepcid AC) 20 mg PO BID #30 tabs 12/12/22 ondansetron 4 mg disintegrating 4 mg PO Q6H PRN #20 tabs 12/12/22 tablet Previous Rx's Medication Instructions Recorded metoprolol succinate 25 mg capsule 25 mg PO DAILY #30 caps 12/03/22 sprinkle, ext. release 24 hr famotidine 20 mg tablet (Pepcid AC) 20 mg PO BID #30 tabs 12/12/22 ondansetron 4 mg disintegrating 4 mg PO Q6H PRN #20 tabs 12/12/22 tablet Allergies Allergy/AdvReac Type Severity Reaction Status Date / Time No Known Allergies Allergy Verified 12/03/22 15:52 General Stated Complaint: Nausea/Vomit/Diar THELMA: 3 PFSH All Active Problems (Updated 12/12/22 @ 14:55 by Rasheed Ahuja MD) Shortness of breath (Acute) Hypertension (Chronic) Nausea & vomiting (Acute) Motor neuron disease (Acute) Weight loss (Acute) Dysphagia (Acute) Dysarthria and anarthria (Acute) Anxiety (Chronic) Dysarthria (Acute) Fasciculations (Acute) Tremulousness (Acute) Pilonidal cyst of sanjiv cleft (Acute) Colon cancer screening (Acute) CAD (coronary artery disease) (Chronic) Distal radius fracture, right (Acute ~05/14/19) Medical History (Updated 12/12/22 @ 14:55 by Rasheed Ahuja MD) Abdominal discomfort Anxiety and depression Anxiety with depression Aphasia Back pain Back pain CAD (coronary artery disease) Decreased hearing Decreased hearing of both ears TRUONG (dyspnea on exertion) denies this Dyspnea on exertion Essential tremor Facial weakness Family history of breast cancer Family history of breast cancer Family history of breast cancer in first degree relative Headache Hematoma of vaginal vault after surgical procedure History of kidney stones Hypertension Kidney stones Muscle twitch Osteopenia Osteopenia Pain in right wrist Pain of left thumb Palliative care patient Post-nasal drip Screening for breast cancer Screening for colon cancer Stress incontinence Stress incontinence Suprapubic pain Thumb pain Surgical History (Updated 10/17/22 @ 12:19 by Christy Starkey) H/O heart artery stent (~11/2018) ANN MARIE to RCA-no longer has to f/u with cardiology Normal colonoscopy (~11/02/20) S/P breast lumpectomy S/P coronary artery stent placement Family History (System 10/17/22 @ 12:19 by Christy Starkey) Mother Hypertension Social History (System 10/17/22 @ 12:19 by Christy Starkey) Smoking/Tobacco Use Status: Never Smoking risk assessment performed?: Yes Alcohol Intake: never Drug use: Never Substance use type: does not use Household members: none Number of Children: 2 Education Level: college current occupation: Retired Current gender identity: female What type of physical activity do you participate in: additional Details: XCS Duration: 15-30 minutes/day Frequency: 3-4 times per week Do you feel safe at home: Yes Do you feel safe in your relationship?: Yes Exam Narrative Exam Narrative: General: A,A Ox3, Calm, no apparent distress, petite, pleasant and cooperative Head Size/Shape: normocephalic, atraumatic Eyes Pupils: PERRLA Extraocular Mobility: intact and symmetrical Conjunctiva: non-injected, anicteric, no discharge Ears, Nose, Throat Nares: patent bilaterally Oral Cavity: moist Neck: no masses, no crepitus Lymph Nodes: no cervical lymphadenopathy Respiratory Respiratory Effort: no dyspnea Cardiovascular Normal cap refill Abdomen Inspection and Palpation: soft, non-tender, non-distended, no hepatosplenomegaly, G-tube site appears normal. Musculoskeletal System Joints, Bones, and Muscles: no deformities Extremities: warm and well-perfused, no cyanosis, capillary refill <2 seconds Skin Skin Inspection: no rash, no lesions, no bruising Neurological Motor: normal tone, normal strength, moving all extremities equally Psychiatric: good insight, good judgement, normal mood and affect Course Vital Signs Vital signs: Vital Signs Temperature 37.2 C 12/12/22 11:48 Pulse 91 H 12/12/22 11:48 Respiratory Rate 18 12/12/22 11:48 Blood Pressure 152/75 H 12/12/22 11:48 Pulse Oximetry 97 12/12/22 11:48 Temperature 37.2 C 12/12/22 11:48 Temperature Source Oral 12/12/22 11:48 Pulse 91 H 12/12/22 11:48 Respiratory Rate 18 12/12/22 11:48 Respiratory Effort Normal 12/12/22 11:56 Blood Pressure 152/75 H 12/12/22 11:48 Blood Pressure Position Sitting 12/12/22 11:48 Pulse Oximetry 97 12/12/22 11:48 Oxygen Delivery Method Room Air 12/12/22 11:48 Oxygen Flow Rate 0 12/12/22 11:48 Sign Out Sign Out Data: Sign Out Comment: 66-year-old lady status post PEG placement at [facility] on November 26. Presented to the emergency room for evaluation of nausea vomiting. She had a full work-up at [facility] yesterday including CT scan which revealed possible small abscess at the entrance of the G-tube to the stomach. She will be treated symptomatically here. Plan is for lactated Ringer's infusion, 500 mL. She will be treated with ondansetron as well as Pepcid. Patient signed out my colleague pending reevaluation after medications. Last updated by Rasheed Ahuja MD at 12/12/22 15:09
[2022-12-12] MEDS: Ondansetron 4 MG/2 ML VIAL IVP (14:56)
[2022-12-12] MEDS: FAMOTIDINE 20 MG in Normal Saline 100 ML 400 MG IVPB (14:57)
[2022-12-12] MEDS: DEXTROSE 5%-LACTATED RINGERS 1,000 ML 250 ML IV (15:00)
--- NOTE | 2022-12-12 16:39 | ED.PROG_ITS ---
Date of service: 12/12/22 Time of Service: 16:39 Medical Decision Making Patient signed out pending reevaluation after presenting with nausea and vomiting. Patient was seen at [facility] yesterday for follow-up after G-tube placement earlier this month. Patient continues to have nausea despite a fairly negative work-up yesterday. She was placed on Augmentin for questionable infection at the insertion site of the G-tube. Patient received IV fluids, famotidine, ondansetron. Patient was seen by surgery, Dr. Harvey, who adjusted her G-tube, changed her Augmentin prescription to solution form. Patient improved after fluids and medications. Plan to continue famotidine and ondansetron as needed outpatient. Dr. Harvey did give patient and family's contact information if she continues to have any problems over the weekend. Return precautions provided. Exam Narrative Exam Narrative: Const: WDWN female in NAD. HEENT: NC/AT. Normal facial exam. Eyes: Normal conjunctiva and sclera. Neck: Supple. Trachea midline. Lungs: Normal respiratory effort. Neuro: A+O x 3. Normal speech, mentation. Cranial nerves II - XII grossly intact. Ext: No C/C/E. Sign Out Sign Out Data: Sign Out Comment: 66-year-old lady status post PEG placement at [facility] on November 26. Presented to the emergency room for evaluation of nausea vomiting. She had a full work-up at [facility] yesterday including CT scan which revealed possible small abscess at the entrance of the G-tube to the stomach. She will be treated symp tomatically here. Plan is for lactated Ringer's infusion, 500 mL. She will be treated with ondansetron as well as Pepcid. Patient signed out my colleague pending reevaluation after medications. Last updated by Rasheed Ahuja MD at 12/12/22 15:09 Discharge Plan Disposition Patient Disposition: Home Condition: Improving Discharge Details Clinical Impression: Nausea & vomiting Primary Care Provider: Myriam Kapoor ED Provider: Ike Neal [place] Meds and New Rx's Prescriptions: New ondansetron 4 mg tablet,disintegrating 4 mg PO Q6H PRNQty: 20 0RF famotidine [Pepcid AC] 20 mg tablet 20 mg PO BID Qty: 30 0RF Continued nitroglycerin 0.4 mg tablet, sublingual 0.4 mg SL Q5M PRN mecobalamin (vitamin B12) 1,000 mcg tablet,chewable 1,000 mcg PO DAILY PRN vitamin B complex [B Complex-Vitamin B12] Tablet 1 tab PO DAILY PRN sertraline [Zoloft] 100 mg tablet 50 mg PO DAILY atorvastatin 20 mg tablet 20 mg PO QHS Patient Comments: no longer taking 12/03/22 CT cetirizine [All Day Allergy (cetirizine)] 10 mg tablet 10 mg PO DAILY PRN aspirin [Adult Low Dose Aspirin] 81 mg tablet,delayed release (DR/EC) 81 mg PO DAILY ondansetron HCl 4 mg tablet 4 mg PO BID PRN cyclobenzaprine 5 mg tablet 5 mg PO DAILY PRN simvastatin 40 mg tablet 40 mg PO QHS clonazepam 0.5 mg tablet 0.5 mg PO PRN PRN riluzole [Rilutek] 50 mg tablet 50 mg PO BID buspirone 5 mg tablet 5 mg PO BID metoprolol succinate 25 mg capsule,sprinkle,ER 24hr 25 mg PO DAILY Qty: 30 0RF Discharge Instructions Instructions: Acute Nausea and Vomiting (ED) Additional Instructions: You were seen in the ED for persistent nausea and vomiting. You were seen by Dr. Harvey from surgery. You were improved after fluids, famotidine, ondansetron for which prescriptions have been sent to pharmacy. Continue to hydrate at home. Contact Dr. Harvey with any issues over the weekend. Return to ED for any fever, worsening abdominal pain, persistent vomiting, other concerns.
[2022-12-12 17:45] VITALS: BP 181/98; PULSE 90; RESP 18; O2SAT 96
== END 2022-12-12 17:59 | disposition home or self-care (01) ==
PROVIDERS: Emergency Provider Emergency Medicine; PCP Family Medicine
DX: R11.2 Nausea with vomiting, unspecified (principal)
CPT/HCPCS: 96361; 96365; 96375; 99284; J2405

== ENCOUNTER 2022-12-17 14:14 | Outpatient (REF) | payer MEDICARE, OTHER, SELFPAY | END 2022-12-17 14:15 | disposition home or self-care (01) | LOC: SUO 14:14 | PROVIDERS: PCP Family Medicine; Referring Provider Family Medicine; Visit Provider Surgery | DX: E46 Unspecified protein-calorie malnutrition (principal) | CPT/HCPCS: 36415; 99215 ==

== ENCOUNTER 2022-12-17 15:40 | Outpatient (REF) | payer MEDICARE, OTHER, SELFPAY ==
[2022-12-17 17:32] LABS: HCT 44.8 % (36.0-46.0); HGB 14.4 g/dL (11.2-15.7); MCHC 32.1 % (32.0-36.0); MCV 87 fL (80-95); Platelet Count 404 10^3/uL (130-400); RBC 5.14 10^6/uL (3.93-5.22); RDW 13.2 % (11.7-14.6); RDW-SD 42.4 fL; WBC 12.65 10^3/uL (4.4-10.8)
[2022-12-17 18:05] LABS: Albumin 3.4 g/dL (3.4-5.0)
[2022-12-17 18:11] LABS: ALT 39 U/L (14-59); AST 24 U/L (15-37); Albumin 3.3 g/dL (3.4-5.0); Alkaline Phosphatase 105 U/L (46-116); Anion Gap 8.6 mmol/L (3-11); BUN 32 mg/dL (7-18); Bilirubin, Total 0.3 mg/dL (0.2-1.0); CO2 32.4 mmol/L (21.0-32.0); CREATININE 0.7 mg/dL (0.55-1.02); Calcium 9.2 mg/dL (8.5-10.1); Chloride 99 mmol/L (98-107); Estimated GFR 95.92 (mL/min/1.73m2); Glucose 128 mg/dL (74-106); Potassium 4.2 mmol/L (3.5-5.1); Sodium 140 mmol/L (136-145); Total Protein 7.3 g/dL (6.4-8.2)
== END 2022-12-17 15:41 | disposition home or self-care (01) ==
LOC: LBN 15:40
PROVIDERS: PCP Family Medicine; Visit Provider Surgery
DX: S52.501A Unspecified fracture of the lower end of right radius, initial encounter for closed fracture (principal); E46 Unspecified protein-calorie malnutrition; X58.XXXA Exposure to other specified factors, initial encounter
CPT/HCPCS: 80053; 85027; 82040

== ENCOUNTER 2022-12-22 17:34 | Inpatient (IN) | payer MEDICARE, OTHER, SELFPAY ==
[2022-12-22] VITALS (24 sets, daily range): BP systolic 139–184; BP diastolic 82–125; PULSE 87–119; RESP 18; TEMP 37.2; O2SAT 95
--- NOTE | 2022-12-22 17:45 | RT.EKG_ITS ---
APPROVED REPORT Exam: Resting ECG Reason for Exam: SOB Patient Location: E HR:105 bpm ECG Measurements Heart Rate 105 AXIS FL 94 P -16 QRSd 99 QRS -58 QT 349 T -7 QTc 461 Conclusion Sinus tachycardia...rate> 99 Left anterior fascicular block...axis(240,-40), init forces inf Narrow complex sinus tachycardia at a rate of 105. Left axis deviation no signs of LVH based on volt age criteria. Left anterior fascicular block. T wave inversion in V2 and lead III.Appears similar t o prior dated earlier this year.
--- NOTE | 2022-12-22 18:45 | DI.RAD_ITS ---
Exam(s) XR CHEST 2V PA LATERAL EXAM: XR CHEST 2V PA LATERAL CLINICAL HISTORY: deconditioning TECHNIQUE: 2D digital imaging was performed. COMPARISON: CT CT CHEST PE CTA from 12/03/2022 FINDINGS: A small amount of free air is noted beneath the diaphragm. HEART: Normal size. Coronary artery stent. Aorta: Not dilated. PULMONARY VASCULATURE: Normal. LUNGS: Lungs suboptimally inflated on both views. Minimal linear atelectasis or scarring at the righ t lung base. PLEURAL SPACE: No pleural effusion or pneumothorax. BONE:Unremarkable for age. IMPRESSION: No acute abnormality in the chest. Free air remains present. DATA REPOSITORY: RADIATION DOSE DELIVERED:
--- NOTE | 2022-12-22 19:15 | DI.CT_ITS ---
Exam(s) CT ABDOMEN PELVIS W EXAM: CT ABDOMEN PELVIS W CLINICAL HISTORY: previous abscess at PEG tube insertion. TECHNIQUE: Imaging Protocol: Axial computed tomography images with coronal and sagittal reformatted images were created and reviewed CONTRAST MATERIAL: Intravenous: Omnipaque 350 Contrast volume:50 mL Oral: No COMPARISON: CT DI.CTAPWO from 02/28/[address] CHEST PE CTA from 12/03/2022 FINDINGS: Exam is limited by motion. ABDOMEN and PELVIS: Lung Bases: Normal where visualized. Liver: Normal density. No measurable mass. Gallbladder and biliary tract: No radiodense calculus or dilation. Pancreas: Normal density, no abnormal calcifications or inflammatory process. Spleen: Normal. Kidneys: Normal size, contour and axis. No radiodense stones or obstructive uropathy. No suspicious m asses seen. Adrenal glands: No masses seen. Abdominal Aorta: Abdominal portion non-dilated. Soft tissues: Peg tube. Small amount of air in the left upper abdominal wall. Bladder: No gross wall thickening. No calculi.No focal mass. Bowel: A PEG tube is noted. There is no surrounding abscess or fluid collection. No obstruction. Portions of the bowel are difficult to the to evaluate due to motion. The majority of the colon is f ree of stool. There is a question of some wall thickening of the right colon. Appendix normal. Peritoneal cavity: Free air noted. This may be secondary to recent PEG tube placement. No ascites, collection or mesenteric inflammatory response. Bones: Advanced degenerative changes in the lumbar spine. Reproductive organs: Apparent endometrial thickening versus fluid within the endometrium. Measures 8 millimeters in thickness. Lymph nodes: Unremarkable. Impression: The PEG tube appears to be appropriately positioned. No surrounding fluid collection or abscess. Free air. Endometrial thickening versus fluid within the endometrium. Pelvic ultrasound could be performed for further evaluation. RADIATION DOSE DELIVERED: 425.9mGy.cm Total DLP DATA REPOSITORY: All CT scans at this facility are submitted to the National Radiology Data Registry (NRDR) Dose Index Registry (DIR) with the [employer] ([employer]). RADIATION OPTIMIZATION: All CT scans at this facility use at least one of these dose optimization te chniques: automated exposure control; mA and/or kV adjustment per patient size (includes targeted exa ms where dose is matched to clinical indication); or iterative reconstruction.
[2022-12-22 19:23] LABS: Abs Immature Grans 0.08 10^3/uL (0.0-0.06); Absolute Basophil Count 0.09 10^3/uL (0.0-0.2); Absolute Eosinophil Count 0.41 10^3/uL (0.0-0.7); Absolute Monocyte Count 0.76 10^3/uL (0.1-0.8); Absolute Neutrophil Count 15.19 10^3/uL (1.2-6.7); Basophils % 0.5; Eosinophils % 2.3; HCT 45.9 % (36.0-46.0); HGB 14.4 g/dL (11.2-15.7); Immature Grans % 0.4; Lymphocytes % 8.2; MCH 27.4 pg (27.0-33.0); MCHC 31.4 % (32.0-36.0); MCV 87 fL (80-95); MPV 11.2 fL (8.0-11.0); Monocytes % 4.2; Neutrophils % 84.4; Platelet Count 289 10^3/uL (130-400); RBC 5.25 10^6/uL (3.93-5.22); RDW 13.3 % (11.7-14.6); RDW-SD 43.1 fL
[2022-12-22 19:24] LABS: Absolute Lymphocyte Count 1.48 10^3/uL (1.2-3.4)
[2022-12-22 19:45] LABS: ALT 40 U/L (14-59); AST 26 U/L (15-37); Albumin 3.2 g/dL (3.4-5.0); Alkaline Phosphatase 114 U/L (46-116); Anion Gap 6.3 mmol/L (3-11); BUN 32 mg/dL (7-18); Bilirubin, Direct 0.1 mg/dL (0.0-0.2); Bilirubin, Total 0.4 mg/dL (0.2-1.0); CO2 32.7 mmol/L (21.0-32.0); CREATININE 0.7 mg/dL (0.55-1.02); Chloride 101 mmol/L (98-107); Estimated GFR 95.92 (mL/min/1.73m2); Glucose 157 mg/dL (74-106); Magnesium 2.1 mg/dL (1.8-2.4); NT-proBNP 173 pg/mL (<300); Potassium 4.4 mmol/L (3.5-5.1); Sodium 140 mmol/L (136-145); Troponin I < 50 ng/L (<or=60)
[2022-12-22 19:49] LABS: Lipase > 375 U/L (16-77)
[2022-12-22] MEDS: Omnipaque 350 MG/ML 100 ML BTL IJ (19:57)
--- NOTE | 2022-12-22 20:05 | ED.GENADUL_ITS ---
Discharge Plan Disposition Patient Disposition: Admit to [facility] Discharge Details Clinical Impression: ALS (amyotrophic lateral sclerosis), Leukocytosis, Diarrhea Primary Care Provider: Myriam aKpoor ED Provider: Joaquim Lee Home Meds and New Rx's Prescriptions: No Action nitroglycerin 0.4 mg tablet, sublingual 0.4 mg SL Q5M PRN mecobalamin (vitamin B12) 1,000 mcg tablet,chewable 1,000 mcg PO DAILY PRN vitamin B complex [B Complex-Vitamin B12] Tablet 1 tab PO DAILY PRN amoxicillin-pot clavulanate [Augmentin] 500-125 mg tablet 1 tab PO BID lorazepam [Ativan] 2 mg tablet 2 mg PO TID PRN polyethylene glycol 3350 [Miralax] 17 gram/dose powder 17 g PO DAILY sertraline [Zoloft] 100 mg tablet 50 mg PO DAILY aspirin [Adult Low Dose Aspirin] 81 mg tablet,delayed release (DR/EC) 81 mg PO DAILY ondansetron HCl 4 mg tablet 4 mg PO BID PRN clonazepam 0.5 mg tablet 0.5 mg PO PRN PRN riluzole [Rilutek] 50 mg tablet 50 mg PO BID metoprolol succinate 25 mg capsule,sprinkle,ER 24hr 25 mg PO DAILY Qty: 30 0RF lorazepam 2 mg/mL concentrate See Rx Instructions .ROUTE .COMPLEX Patient Comments: TAKE 0.25ML VIA GIVE TUBE THREE TIMES A DAY NEEDED CAN INCREASE TO 1/2 ML IF TOLERATING BUT NEED MORE RELIEF Rx Instructions: TAKE 0.25ML VIA GIVE TUBE THREE TIMES A DAY NEEDED CAN INCREASE TO 1/2 ML IF TOLERATING BUT NEED MORE RELIEF ondansetron 4 mg tablet,disintegrating 4 mg PO Q6H PRNQty: 20 0RF famotidine [Pepcid AC] 20 mg tablet 20 mg PO BID Qty: 30 0RF Medical Decision Making We will evaluate diarrhea and potential of abscess formation at the site of the G-tube insertion with a CT scan of the abdomen and pelvis. Also evaluate electrolytes given history of no p.o. intake and only G-tube feeds. Chest x-ray for potential pneumonia as the initial complaint was difficulty breathing and poor inspiratory effort. Begin fluid resuscitation with IV fluids and she is most certainly dehydrated. Consultation to general surgery as indicated. Differential Diagnosis Differential Diagnosis: Postsurgical abscess/colitis/pneumonia/electrolyte abnormality Medical Records Medical records reviewed: Yes I reviewed the patient's medical records. Imaging Data Radiologic Study: Attestation: I personally reviewed and interpreted this imaging study as follows: Imaging: CT Scan My impression: Free air in the abdomen Radiologist's impression: Free air in the abdomen, no inflammatory process visualized. No evidence of pancreatic inflammation Lab Data Lab results reviewed: Yes I reviewed the patient's lab results. Lab results narrative: Elevated white blood cell count over baseline. Elevated lipase level of unclear etiology. No significant electrolyte abnormality. No significant anemia. HPI General Date/Time Provider Initiated Documentation: 12/22/22 18:50 . Limitations to Documentation: no limitations . Information obtained by: patient and family . HPI Narrative: Patient with a recent diagnosis of what appears to be ALS. This diagnosis was made in October of this year. Since then she has had a progressive worsening decline. Significant weight loss. Significant reduced p.o. intake. Much weight loss and dysphagia that she had a recent PEG tube placed at [facility]. This was complicated by a larger than expected amount of free air underneath the abdomen postsurgical. Also possible questional abscess or focus of infection next to the G-tube stomach wall junction. For this she has been on antibiotics which she will finish in about 2 days. Multiple scans since the G-tube placement if showed decreasing amounts of free air of the abdomen. Reason to present to the emergency department today is increased weakness more fatigue questionable respiratory symptoms and diarrhea. Patient does not report an increase of abdominal pain. Infectious she does not really report any abdominal pain at all. Also denies fever and chills. No nausea no vomiting but about 5 loose bowel movements per day. Related Data Home Medications Medication Instructions Recorded Confirmed nitroglycerin 0.4 mg sublingual 0.4 mg sublingual Q5M PRN 07/25/19 12/22/22 tablet aspirin 81 mg tablet,delayed 81 mg PO DAILY 06/12/22 12/22/22 release (Adult Low Dose Aspirin) ondansetron HCl 4 mg tablet 4 mg PO BID PRN 06/12/22 12/22/22 vitamin B complex (B 1 tab PO DAILY PRN 08/07/22 12/22/22 Complex-Vitamin B12 tablet) mecobalamin (vitamin B12) 1,000 1,000 mcg PO DAILY PRN 10/17/22 12/22/22 mcg chewable tablet sertraline 100 mg tablet (Zoloft) 50 mg PO DAILY 10/27/22 12/22/22 clonazepam 0.5 mg tablet 0.5 mg PO PRN PRN 11/25/22 12/22/22 metoprolol succinate 25 mg capsule 25 mg PO DAILY #30 caps 12/03/22 12/22/22 sprinkle, ext. release 24 hr riluzole 50 mg tablet (Rilutek) 50 mg PO BID 12/03/22 12/22/22 famotidine 20 mg tablet (Pepcid AC) 20 mg PO BID #30 tabs 12/12/22 12/22/22 ondansetron 4 mg disintegrating 4 mg PO Q6H PRN #20 tabs 12/12/22 12/22/22 tablet amoxicillin 500 mg-potassium 1 tab PO BID 12/17/22 12/17/22 clavulanate 125 mg tablet (Augmentin) lorazepam 2 mg tablet (Ativan) 2 mg PO TID PRN 12/17/22 12/17/22 polyethylene glycol 3350 17 17 g PO DAILY 12/17/22 12/22/22 gram/dose oral powder (Miralax) lorazepam 2 mg/mL oral concentrate See Rx Instructions .Route .COMPLEX 12/22/22 12/22/22 Previous Rx's Medication Instructions Recorded metoprolol succinate 25 mg capsule 25 mg PO DAILY #30 caps 12/03/22 sprinkle, ext. release 24 hr famotidine 20 mg tablet (Pepcid AC) 20 mg PO BID #30 tabs 12/12/22 ondansetron 4 mg disintegrating 4 mg PO Q6H PRN #20 tabs 12/12/22 tablet Allergies Allergy/AdvReac Type Severity Reaction Status Date / Time No Known Allergies Allergy Verified 12/22/22 17:45 General Stated Complaint: GenMedical THELMA: 3 Review of Systems Narrative: CONST: Negative for fever, body aches and chills. HENT: Negative for neck pain/stiffness, headache, congestion, sore throat, swelling. EYES: Negative for discharge/pain or vision changes. RESP: Negative for cough/hemoptysis + shortness of breath. CV: Negative chest pain, +difficulty breathing, palpitations. ABD: Negative pain, nausea, vomiting. : Negative increase frequency, dysuria, blood in urine or stool. MUSC: Negative for muscle aches, edema. SKIN: Negative rash, lesions/sores. NEURO: Negative headache, dizziness,+ weakness. PFSH All Active Problems Leukocytosis (Acute) Diarrhea (Acute) ALS (amyotrophic lateral sclerosis) (Acute) peg tube placed Malnutrition (Acute) Shortness of breath (Acute) Hypertension (Chronic) Nausea & vomiting (Acute) Dysarthria and anarthria (Acute) Anxiety (Chronic) Pilonidal cyst of cleft (Acute) CAD (coronary artery disease) (Chronic) Medical History Abdominal discomfort Anxiety and depression Anxiety with depression Aphasia Back pain Back pain CAD (coronary artery disease) Colon cancer screening Decreased hearing Decreased hearing of both ears Distal radius fracture, right (~05/14/19) TRUONG (dyspnea on exertion) denies this Dysarthria Dysphagia Dyspnea on exertion Essential tremor Facial weakness Family history of breast cancer Family history of breast cancer Family history of breast cancer in first degree relative Fasciculations Headache Hematoma of vaginal vault after surgical procedure History of kidney stones Hypertension Kidney stones Motor neuron disease Muscle twitch Osteopenia Osteopenia Pain in right wrist Pain of left thumb Palliative care patient Post-nasal drip Screening for breast cancer Screening for colon cancer Stress incontinence Stress incontinence Suprapubic pain Thumb pain Tremulousness Weight loss Surgical History H/O heart artery stent (~11/2018) ANN MARIE to RCA-no longer has to f/u with cardiology Normal colonoscopy (~11/02/20) S/P breast lumpectomy S/P coronary artery stent placement Family History Mother Hypertension Social History Smoking/Tobacco Use Status: Never Smoking risk assessment performed?: Yes Alcohol Intake: never Drug use: Never Substance use type: does not use Household members: none Number of Children: 2 Education Level: college current occupation: Retired Current gender identity: female What type of physical activity do you participate in: additional Details: XCS Duration: 15-30 minutes/day Frequency: 3-4 times per week Do you feel safe at home: Yes Do you feel safe in your relationship?: Yes Exam Narrative Exam Narrative: GENERAL APPEARANCE chronically ill in appearance with temporal wasting and poorly nourished, no cyanosis, pallor, or diaphoresis. EYES lids/conjunctiva normal. EARS/NOSE/THROAT Mucous membranes moist, nares normal, lips/teeth normal uvula midline without oral pharyngeal erythema, thrush present towards the back of the tongue, exudate or swelling No lymphangitis/lymphedema. HEAD/NECK normocephalic atraumatic, no facial trauma, neck is supple. RESPIRATORY respiratory effort normal, reduced bilateral lung volumes speaks in full sentences, no tripod position, no accessory muscle use. Lungs clear to auscultation without rhonchi, wheezes, rales CARDIAC Regular rate and rhythm, no edema. ABDOMINAL Soft, ND/NT. No evidence of fluid wave. No pulsatile masses on exam, rebound tenderness, Isaacs sign or pain over Mcburney's point. Insertion site of the PEG tube demonstrates no erythema no tender fluid collection MUSCLES/EXTREMITIES No abnormal range of motion, no swelling. Muscle wasting SKIN Warm, pink and dry. No rashes, dermatoses, petechiae or lesions. NEUROLOGICAL Speech is dysarthric but appropriate. Normal level of consciousness. Gait and coordination are normal. 5/5 strength in all extremities. PSYCH Normal mood and affect. Judgement/competence is appropriate Course Reevaluation(s) Time: 20:05 Reevaluation: Patient's white blood cell count is elevated over previous. It is approximately 18,000. I have sent patient for CT scan of the abdomen pelvis to rule out worsening of the anterior wall abdomen abscess that she was suspected to have 2 weeks ago. Pneumonia also possibility for urinary tract infection. Patient is not coughing. She does not have any complaints of dysuria. She does have oral thrush so esophagitis is also a possible etiology of her elevated white blood cell count. Time: 20:29 Reevaluation #2: Discussed the case with the [facility] radiologist. States that there is still a moderate amount of free air in the abdomen which is reduced from previous but more than would be expected this far out from a PEG tube placement. Also there is a significant elevation of the patient's lipase which was not present before. However radiology states that there is no evidence of inflammation and around the pancreas. He stated that there may be some colonic wall thickening and the patient has reported diarrhea. No history of fevers or chills. Will consult [facility] general surgery who had previously seen this patient on her admission at [facility]. Patient has been fluid resuscitated we will also order a lactate. Time: 21:00 Additional Reevaluation(s): Discussed the case with general surgery [facility]. Dr. Harvey. Reviewed the case in detail. The amount of air in the abdomen is decreasing and there is no evidence of any other inflammatory process in the abdomen. From surgical standpoint there is nothing to do now at this time. Suggest treating her symptoms of diarrhea sending C. difficile and observing in hospital. [facility] does not have capacity at this time to accept this patient in transfer. They will gladly discussed the case in the near term should the patient have a change in her clinical status. Consultations Consultation #1: Hospitalist service for admission: Discussed the case in the ED. Reviewed pertinent radiologic findings and discussion with general surgery. Patient has been accepted to the hospital service with a diagnosis of diarrhea, her ALS, leukocytosis. Time: 21:57 Vital Signs Vital signs: Vital Signs Temperature 37.2 C 12/22/22 17:39 Pulse 107 H 12/22/22 17:39 Respiratory Rate 18 12/22/22 17:39 Blood Pressure 139/82 12/22/22 17:39 Pulse Oximetry 95 12/22/22 17:39 Temperature 37.2 C 12/22/22 17:39 Temperature Source Temporal Artery Scan 12/22/22 17:39 Pulse 107 H 12/22/22 17:39 Respiratory Rate 18 12/22/22 17:39 Respiratory Effort Normal, Non-Labored 12/22/22 17:56 Blood Pressure 139/82 12/22/22 17:39 Blood Pressure Position Sitting 12/22/22 17:39 Pulse Oximetry 95 12/22/22 17:39 Oxygen Delivery Method Room Air 12/22/22 17:39 Oxygen Flow Rate 0 12/22/22 17:39 Pain Level 0 12/22/22 17:39 Lab/Test Results Lab/Test Results: Laboratory Tests Range/Units 12/22/22 12/22/22 18:10 18:10 WBC (4.4-10.8) 10^3/uL 18.00 H RBC (3.93-5.22) 10^6/uL 5.25 H Hgb (11.2-15.7) g/dL 14.4 Hct (36.0-46.0) % 45.9 MCV (80-95) fL 87 MCH (27.0-33.0) pg 27.4 MCHC (32.0-36.0) % 31.4 L RDW (11.7-14.6) % 13.3 Plt Count (130-400) 10^3/uL 289 MPV (8.0-11.0) fL 11.2 H Immature Gran % 0.4 Neutrophils % 84.4 Lymphocytes % 8.2 Monocytes % 4.2 Eosinophils % 2.3 Basophils % 0.5 Nucleated RBC % (0.0-0.3) % 0.0 Absolute Neutrophils (1.2-6.7) 10^3/uL 15.19 H Absolute Lymphocytes (1.2-3.4) 10^3/uL 1.48 Absolute Monocytes (0.1-0.8) 10^3/uL 0.76 Absolute Eosinophils (0.0-0.7) 10^3/uL 0.41 Absolute Basophils (0.0-0.2) 10^3/uL 0.09 Sodium (136-145) mmol/L 140 Potassium (3.5-5.1) mmol/L 4.4 Chloride (98-107) mmol/L 101 Carbon Dioxide (21.0-32.0) mmol/L 32.7 H Anion Gap (3-11) mmol/L 6.3 BUN (7-18) mg/dL 32 H Creatinine (0.55-1.02) mg/dL 0.7 Est GFR (CKD-EPI 2020) (mL/min/1.73m2) 95.92 Glucose (74-106) mg/dL 157 H Calcium (8.5-10.1) mg/dL 9.0 Magnesium (1.8-2.4) mg/dL 2.1 Total Bilirubin (0.2-1.0) mg/dL 0.4 Conjugated Bilirubin (0.0-0.2) mg/dL 0.1 AST (15-37) U/L 26 ALT (14-59) U/L 40 Alkaline Phosphatase (46-116) U/L 114 Troponin I (<or=60) ng/L < 50 NT-Pro-B Natriuret Pep (<300) pg/mL 173 Total Protein (6.4-8.2) g/dL 7.0 Albumin (3.4-5.0) g/dL 3.2 L Lipase (16-77) U/L > 375 H
[2022-12-22 20:11] LABS: Bilirubin Negative (Negative); Blood Trace-lysed (Negative); Clarity Clear (Clear); Glucose Negative (Negative); Ketones Negative (Negative); Leukocyte Esterase Negative (Negative); Nitrite Negative (Negative); Specific Gravity 1.015 (1.005-1.025); Urobilinogen 0.2 mg/dL (Up to 0.2)
--- NOTE | 2022-12-22 20:15 | DI.VRAD_ITS ---
PROCEDURE INFORMATION: Exam: XR Chest Exam date and time: 12/22/2022 7:52 PM Age: 66 years old Clinical indication: Other: Deconditioning TECHNIQUE: Imaging protocol: Radiologic exam of the chest. Views: 2 views. COMPARISON: CT CHEST PE CTA 12/03/2022 5:12 PM FINDINGS: Lungs: Minimal right-sided scarring. No consolidation. Pleural spaces: Unremarkable. No pleural effusion. No pneumothorax. Heart/Mediastinum: Unremarkable. No cardiomegaly. Bones/joints: Unremarkable. Free air below the right hemidiaphragm suspected IMPRESSION: Free air below the right hemidiaphragm suspected Dictated and Authenticated by: Supa Garcia MD. Ordering:FAISAL March MD
--- NOTE | 2022-12-22 20:15 | DI.VRAD_ITS ---
Addendum created by Supa Garcia MD on 12/22/2022 8:23:11 PM EDT: THIS REPORT CONTAINS FINDINGS THAT MAY BE CRITICAL TO PATIENT CARE. The findings were verbally communicated via telephone conference with Joaquim Lee at 8:17 PM EDT on 12/22/2022. The findings were acknowledged and understood. Initial report created on 12/22/2022 8:14:43 PM EDT: PROCEDURE INFORMATION: Exam: CT Abdomen And Pelvis With Contrast Exam date and time: 12/22/2022 7:58 PM Age: 66 years old Clinical indication: Other: Previous abscess at peg tube insertion; Prior surgery; Surgery date: 6+ months TECHNIQUE: Imaging protocol: Computed tomography of the abdomen and pelvis with contrast. Radiation optimization: All CT scans at this facility use at least one of these dose optimization techniques: automated exposure control; mA and/or kV adjustment per patient size (includes targeted exams where dose is matched to clinical indication); or iterative reconstruction. Contrast material: OMNIPAQUE 350; Contrast volume: 50 ml; Contrast route: INTRAVENOUS (IV); COMPARISON: CT CHEST PE CTA 12/03/2022 5:12 PM FINDINGS: Liver: Normal. No mass. Gallbladder and bile ducts: Normal. No calcified stones. No ductal dilation. Pancreas: Normal. No ductal dilation. Spleen: Normal. No splenomegaly. Adrenal glands: Normal. No mass. Kidneys and ureters: Normal. No hydronephrosis. Stomach and bowel: Gastrostomy tube in the stomach Question mild right-sided colonic wall thickening No obstruction. Appendix: No evidence of appendicitis. Intraperitoneal space: Small free air. No significant fluid collection. Vasculature: Unremarkable. No abdominal aortic aneurysm. Lymph nodes: Unremarkable. No enlarged lymph nodes. Urinary bladder: Unremarkable as visualized. Reproductive: Unremarkable as visualized. Bones/joints: Unremarkable. No acute fracture. Soft tissues: Small amount of air in the left anterior abdominal wall IMPRESSION: Small amount free gastrostomy tube. Correlate for recent placement/exchange. Otherwise, bowel perforation Question mild right-sided colitis Dictated and Authenticated by: Supa Garcia MD. Ordering:FAISAL March MD
[2022-12-22 20:28] LABS: Bacteria Negative HPF (Negative); C & S Indicated? No; Casts Negative LPF (Negative); Crystals Negative HPF (Negative); Epithelial Cells Rare HPF (Negative); Mucus Negative (Negative); RBC 0-2 HPF (0-2); WBC 0-2 HPF (0-5)
[2022-12-22 20:49] LABS: Lactate 1.3 mmol/L (0.6-1.4)
--- NOTE | 2022-12-22 22:15 | HPE_ITS ---
Date of service: 12/22/22 Time of Service: 22:16 Assessment and Plan Assessment and plan (1) Diarrhea: Status: Acute Assessment and plan: I think the diarrheal illness, with a degree of dehydration, is the main issue here (the reports of abnormal lung sounds do not seem to have any correlate here). The leading suspects for the diarrhea would be a) the tube feeds; b) antibiotic associated; c) C diff; or d) meds (viz, Zoloft, I don't see diarrhea as side effect of Riluzole). Favoring possible C diff might be the leukocytosis as well as the CT findings. Will hold tube feeds, Zoloft and follow diarrhea off Augmentin, and await stool for C diff. Will gently hydrate in interim. Reviewed ADs, requests DNR History of Present Illness History of Present Illness Chief Complaint: diarrhea Narrative: 66 female with recent diagnosis of ALS, manifesting primarily with dysphagia and dysphonia. Had PEG tube placed approx 3 weeks INCLINOMETER TESTER, complicated by possible perforation with abcess. Has been on Augmentin since, and has been started on tube feeds. Was also started on Zoloft and Riluzole. Since that time patient has been having diarrhea, up to 5/day, loose, no blood, and no abdominal pain or fever. She was sent to the ER today for evaluation because her home health nurse apparently noted some abnormal lung sounds and noted shallow breathing. Here in ER findings of note for absence of fever and tachypnea, O2 sats mid-90s on RTA; white count 18, negative CXR, and abd CT showing small amount free air and no abcess, as well as possible right sided colitis. Case and films were reviewed with her team at [facility] and they felt the imaging was all imroving and there was n mo need for any change in treatment or surgical intervention. An additional finding was of Lipase 375, Bun 32 and Creat 0.7. I was asked to evaluate for admission. At present patient states she just overall feels weak. Does note shallow breathing but not SOB per se. Denies abdominal pain. Note that last dose of Augmentin was yesterday, and has not produced any stool here in ER. Review of Systems Narrative: per HPI PFSH All Active Problems Leukocytosis (Acute) Diarrhea (Acute) ALS (amyotrophic lateral sclerosis) (Acute) peg tube placed Malnutrition (Acute) Shortness of breath (Acute) Hypertension (Chronic) Nausea & vomiting (Acute) Dysarthria and anarthria (Acute) Anxiety (Chronic) Pilonidal cyst of cleft (Acute) CAD (coronary artery disease) (Chronic) Medical History Abdominal discomfort Anxiety and depression Anxiety with depression Aphasia Back pain Back pain CAD (coronary artery disease) Colon cancer screening Decreased hearing Decreased hearing of both ears Distal radius fracture, right (~05/14/19) TRUONG (dyspnea on exertion) denies this Dysarthria Dysphagia Dyspnea on exertion Essential tremor Facial weakness Family history of breast cancer Family history of breast cancer Family history of breast cancer in first degree relative Fasciculations Headache Hematoma of vaginal vault after surgical procedure History of kidney stones Hypertension Kidney stones Motor neuron disease Muscle twitch Osteopenia Osteopenia Pain in right wrist Pain of left thumb Palliative care patient Post-nasal drip Screening for breast cancer Screening for colon cancer Stress incontinence Stress incontinence Suprapubic pain Thumb pain Tremulousness Weight loss Surgical History H/O heart artery stent (~11/2018) ANN MARIE to RCA-no longer has to f/u with cardiology Normal colonoscopy (~11/02/20) S/P breast lumpectomy S/P coronary artery stent placement Family History Mother Hypertension Social History Smoking/Tobacco Use Status: Never Smoking risk assessment performed?: Yes Alcohol Intake: never Drug use: Never Substance use type: does not use Household members: none Number of Children: 2 Education Level: college current occupation: Retired Current gender identity: female What type of physical activity do you participate in: additional Details: XCS Duration: 15-30 minutes/day Frequency: 3-4 times per week Do you feel safe at home: Yes Do you feel safe in your relationship?: Yes Meds Allergies and Home Medications Allergies Allergy/AdvReac Type Severity Reaction Status Date / Time No Known Allergies Allergy Verified 12/22/22 17:45 Home Medications Medication Instructions Recorded Confirmed Type nitroglycerin 0.4 mg sublingual 0.4 mg sublingual Q5M PRN 07/25/19 12/22/22 History tablet aspirin 81 mg tablet,delayed 81 mg PO DAILY 06/12/22 12/22/22 History release (Adult Low Dose Aspirin) ondansetron HCl 4 mg tablet 4 mg PO BID PRN 06/12/22 12/22/22 History vitamin B complex (B 1 tab PO DAILY PRN 08/07/22 12/22/22 History Complex-Vitamin B12 tablet) mecobalamin (vitamin B12) 1,000 1,000 mcg PO DAILY PRN 10/17/22 12/22/22 History mcg chewable tablet sertraline 100 mg tablet (Zoloft) 50 mg PO DAILY 10/27/22 12/22/22 History clonazepam 0.5 mg tablet 0.5 mg PO PRN PRN 11/25/22 12/22/22 History metoprolol succinate 25 mg capsule 25 mg PO DAILY #30 caps 12/03/22 12/22/22 Rx sprinkle, ext. release 24 hr riluzole 50 mg tablet (Rilutek) 50 mg PO BID 12/03/22 12/22/22 History famotidine 20 mg tablet (Pepcid AC) 20 mg PO BID #30 tabs 12/12/22 12/22/22 Rx ondansetron 4 mg disintegrating 4 mg PO Q6H PRN #20 tabs 12/12/22 12/22/22 Rx tablet amoxicillin 500 mg-potassium 1 tab PO BID 12/17/22 12/17/22 History clavulanate 125 mg tablet (Augmentin) lorazepam 2 mg tablet (Ativan) 2 mg PO TID PRN 12/17/22 12/17/22 History polyethylene glycol 3350 17 17 g PO DAILY 12/17/22 12/22/22 History gram/dose oral powder (Miralax) lorazepam 2 mg/mL oral concentrate See Rx Instructions .Route .COMPLEX 12/22/22 12/22/22 History Exam Narrative Exam Narrative: 139/82, 107, 37.2, 18, 95% RA. HEENT oral thrush noted on tongue; neck supple; lungs clear; heart RRR; abdomen soft and NT, PEG in place, site clean and dry; extremities w/o edema; neuro Ox3, lucid, voice is weak, moves all 4s, approx 4/5 throughout Results Labs 12/22/22 18:10 12/22/22 18:10 Labs: Laboratory Results - last 24 hr 12/22/22 12/22/22 12/22/22 18:10 18:10 20:00 WBC 18.00 H RBC 5.25 H Hgb 14.4 Hct 45.9 MCV 87 MCH 27.4 MCHC 31.4 L RDW 13.3 Plt Count 289 MPV 11.2 H Immature Gran % 0.4 Neutrophils % 84.4 Lymphocytes % 8.2 Monocytes % 4.2 Eosinophils % 2.3 Basophils % 0.5 Nucleated RBC % 0.0 Absolute Neutrophils 15.19 H Absolute Lymphocytes 1.48 Absolute Monocytes 0.76 Absolute Eosinophils 0.41 Absolute Basophils 0.09 VBG Lactate Sodium 140 Potassium 4.4 Chloride 101 Carbon Dioxide 32.7 H Anion Gap 6.3 BUN 32 H Creatinine 0.7 Est GFR (CKD-EPI 2020) 95.92 Glucose 157 H Calcium 9.0 Magnesium 2.1 Total Bilirubin 0.4 Conjugated Bilirubin 0.1 AST 26 ALT 40 Alkaline Phosphatase 114 Troponin I < 50 NT-Pro-B Natriuret Pep 173 Total Protein 7.0 Albumin 3.2 L Lipase > 375 H Urine Color Yellow Urine Clarity Clear Urine pH 7.0 Ur Specific [place] 1.015 Urine Protein Negative Urine Ketones Negative Urine Blood Trace-lysed H Urine Nitrite Negative Urine Bilirubin Negative Urine Urobilinogen 0.2 Ur Leukocyte Esterase Negative Urine RBC 0-2 Urine WBC 0-2 Ur Epithelial Cells Rare Urine Crystals Negative Urine Bacteria Negative Urine Casts Negative Urine Mucus Negative Ur Culture Indicated? No Urine Glucose Negative 12/22/22 20:42 WBC RBC Hgb Hct MCV MCH MCHC RDW Plt Count MPV Immature Gran % Neutrophils % Lymphocytes % Monocytes % Eosinophils % Basophils % Nucleated RBC % Absolute Neutrophils Absolute Lymphocytes Absolute Monocytes Absolute Eosinophils Absolute Basophils VBG Lactate 1.3 Sodium Potassium Chloride Carbon Dioxide Anion Gap BUN Creatinine Est GFR (CKD-EPI 2020) Glucose Calcium Magnesium Total Bilirubin Conjugated Bilirubin AST ALT Alkaline Phosphatase Troponin I NT-Pro-B Natriuret Pep Total Protein Albumin Lipase Urine Color Urine Clarity Urine pH Ur Specific [place] Urine Protein Urine Ketones Urine Blood Urine Nitrite Urine Bilirubin Urine Urobilinogen Ur Leukocyte Esterase Urine RBC Urine WBC Ur Epithelial Cells Urine Crystals Urine Bacteria Urine Casts Urine Mucus Ur Culture Indicated? Urine Glucose Last Vital Signs Temp 37.2 C 12/22/22 17:39 Pulse 107 H 12/22/22 17:39 Resp 18 12/22/22 17:39 BP 139/82 12/22/22 17:39 Pulse Ox 95 12/22/22 17:39 Time Spent Time spent with Patient: 40-54 minutes Time was spent: preparing to see the patient(eg.review tests), obtaining and/or reviewing separately otained hiistory, ordering medications,tests, procedures, referring, communicating with other health respiratory care technician and indepentently interpreting results
[2022-12-23] VITALS (7 sets, daily range): BP systolic 148–223; BP diastolic 73–125; PULSE 84–105; RESP 15–22; TEMP 36.7–37.3; O2SAT 92–96
--- NOTE | 2022-12-23 00:25 | NUR.NOTE ---
Nursing Note:pt arrived to floor in stable condition. vss. no abd pain, nausea or sob. pt did state that she has had 2 falls in the past 2 days, 1 of which she hit her head during. neuros intact. equal strength bilaterally. pt is now resting in bed and denies further needs at this time. call charles within reach, bed alarm on. wctm.
[2022-12-23] MEDS: Lactated Ringers 1,000 ML 80 ML IV ×2 (00:30→13:13)
--- NOTE | 2022-12-23 01:59 | NUR.NOTE ---
Nursing Note: alerted about pt having fall and hitting head 2 days ago. no new orders placed. wctm.
[2022-12-23 02:15] LABS: C Diff PCR Positive (Negative)
[2022-12-23] MEDS: Fluconazole 100 MG TAB PO (08:20)
[2022-12-23] MEDS: Metoprolol 12.5 MG TAB NG ×2 (08:20→13:50)
[2022-12-23] MEDS: Aspirin 81 MG CHEW UD (08:20)
[2022-12-23 08:38] LABS: HGB 12.7 g/dL (11.2-15.7); MCH 28.3 pg (27.0-33.0); MCHC 32.6 % (32.0-36.0); MCV 87 fL (80-95); MPV 10.8 fL (8.0-11.0); Platelet Count 232 10^3/uL (130-400); RBC 4.48 10^6/uL (3.93-5.22); RDW 13.6 % (11.7-14.6); RDW-SD 43.7 fL; WBC 24.51 10^3/uL (4.4-10.8)
[2022-12-23 08:52] LABS: Anion Gap 3.6 mmol/L (3-11); BUN 21 mg/dL (7-18); CO2 32.4 mmol/L (21.0-32.0); CREATININE 0.6 mg/dL (0.55-1.02); Calcium 8.8 mg/dL (8.5-10.1); Chloride 104 mmol/L (98-107); Estimated GFR 99.55 (mL/min/1.73m2); Glucose 104 mg/dL (74-106); Potassium 4.3 mmol/L (3.5-5.1); Sodium 140 mmol/L (136-145)
[2022-12-23] MEDS: Lactobacillus Acidophilus CAP 1 CAP UD ×3 (09:30→19:55)
--- NOTE | 2022-12-23 15:10 | PGE_ITS ---
Date of Service Date of service: 12/23/22 Time of Service: 15:11 Assessment and Plan Assessment and plan (1) Sepsis: Status: Acute Assessment and plan: Due to C. diff colitis, present on admission. See below. (2) C. difficile colitis: Status: Acute Assessment and plan: Add IV metronidazole to per tube vancomycin. Start probiotics. Prn loperamide. Add banatrol to the tube feeding, which I think can be resumed. I did consult nutrition for any advice re tube feeding-related diarrhea. (3) ALS (amyotrophic lateral sclerosis): Status: Acute Assessment and plan: I have asked for RT to do NIFs and to supply our CPAP machine until her own can be brought from home. (4) Shortness of breath: Status: Acute Assessment and plan: Due to above. As above (5) Hypertension: Status: Chronic Assessment and plan: Increase metoprolol to 25 mg per tube Q6 hrs. (6) DVT prophylaxis: Status: Acute Assessment and plan: Start SC heparin (7) Discharge planning issues: Status: Acute Assessment and plan: DNR/DNI C/s PT, OT, speech, palliative care, RT. Subjective Subjective Interval history since last seen: Ms Shepard continues to have diarrhea. She had it 5 times today. No dizziness, CP, nausea. She reports shortness of breath. Per daughter, she uses CPAP at home but only at night. We discussed how, as the disease progresses, she may need it during the day as well. Her CPAP machine will be brought over. The patient notes her BPs have been elevated at home, ever since her PEG tube was placed. Exam Narrative Exam Narrative: General: Pleasant middle-aged female with dysarthria, somewhat difficult to understand, A&Ox3 HEENT: EOMI, MMM Heart: RRR, tachycardic Lungs: Diminished breath sounds B Abdomen: soft, nontender, nondistended, PEG site c/d/i Extremities: no edema BLEs Objective Last Vital Signs Temp 36.7 C 12/23/22 14:32 Pulse 102 H 12/23/22 14:32 Resp 22 12/23/22 14:32 BP 182/88 H 12/23/22 14:37 Pulse Ox 94 12/23/22 14:32 Laboratory Results - last 24 hr 12/22/22 12/22/22 12/22/22 18:10 18:10 20:00 WBC 18.00 H RBC 5.25 H Hgb 14.4 Hct 45.9 MCV 87 MCH 27.4 MCHC 31.4 L RDW 13.3 Plt Count 289 MPV 11.2 H Immature Gran % 0.4 Neutrophils % 84.4 Lymphocytes % 8.2 Monocytes % 4.2 Eosinophils % 2.3 Basophils % 0.5 Nucleated RBC % 0.0 Absolute Neutrophils 15.19 H Absolute Lymphocytes 1.48 Absolute Monocytes 0.76 Absolute Eosinophils 0.41 Absolute Basophils 0.09 VBG Lactate Sodium 140 Potassium 4.4 Chloride 101 Carbon Dioxide 32.7 H Anion Gap 6.3 BUN 32 H Creatinine 0.7 Est GFR (CKD-EPI 2020) 95.92 Glucose 157 H Calcium 9.0 Magnesium 2.1 Total Bilirubin 0.4 Conjugated Bilirubin 0.1 AST 26 ALT 40 Alkaline Phosphatase 114 Troponin I < 50 NT-Pro-B Natriuret Pep 173 Total Protein 7.0 Albumin 3.2 L Lipase > 375 H Urine Color Yellow Urine Clarity Clear Urine pH 7.0 Ur Specific [place] 1.015 Urine Protein Negative Urine Ketones Negative Urine Blood Trace-lysed H Urine Nitrite Negative Urine Bilirubin Negative Urine Urobilinogen 0.2 Ur Leukocyte Esterase Negative Urine RBC 0-2 Urine WBC 0-2 Ur Epithelial Cells Rare Urine Crystals Negative Urine Bacteria Negative Urine Casts Negative Urine Mucus Negative Ur Culture Indicated? No Urine Glucose Negative Stl C.difficile Tox PCR 12/22/22 12/23/22 12/23/22 20:42 01:05 08:10 WBC RBC Hgb Hct MCV MCH MCHC RDW Plt Count MPV Immature Gran % Neutrophils % Lymphocytes % Monocytes % Eosinophils % Basophils % Nucleated RBC % Absolute Neutrophils Absolute Lymphocytes Absolute Monocytes Absolute Eosinophils Absolute Basophils VBG Lactate 1.3 Sodium 140 Potassium 4.3 Chloride 104 Carbon Dioxide 32.4 H Anion Gap 3.6 BUN 21 H Creatinine 0.6 Est GFR (CKD-EPI 2020) 99.55 Glucose 104 Calcium 8.8 Magnesium Total Bilirubin Conjugated Bilirubin AST ALT Alkaline Phosphatase Troponin I NT-Pro-B Natriuret Pep Total Protein Albumin Lipase Urine Color Urine Clarity Urine pH Ur Specific [place] Urine Protein Urine Ketones Urine Blood Urine Nitrite Urine Bilirubin Urine Urobilinogen Ur Leukocyte Esterase Urine RBC Urine WBC Ur Epithelial Cells Urine Crystals Urine Bacteria Urine Casts Urine Mucus Ur Culture Indicated? Urine Glucose Stl C.difficile Tox PCR Positive A 12/23/22 08:10 WBC 24.51 H RBC 4.48 Hgb 12.7 Hct 39.0 MCV 87 MCH 28.3 MCHC 32.6 RDW 13.6 Plt Count 232 MPV 10.8 Immature Gran % Neutrophils % Lymphocytes % Monocytes % Eosinophils % Basophils % Nucleated RBC % Absolute Neutrophils Absolute Lymphocytes Absolute Monocytes Absolute Eosinophils Absolute Basophils VBG Lactate Sodium Potassium Chloride Carbon Dioxide Anion Gap BUN Creatinine Est GFR (CKD-EPI 2020) Glucose Calcium Magnesium Total Bilirubin Conjugated Bilirubin AST ALT Alkaline Phosphatase Troponin I NT-Pro-B Natriuret Pep Total Protein Albumin Lipase Urine Color Urine Clarity Urine pH Ur Specific [place] Urine Protein Urine Ketones Urine Blood Urine Nitrite Urine Bilirubin Urine Urobilinogen Ur Leukocyte Esterase Urine RBC Urine WBC Ur Epithelial Cells Urine Crystals Urine Bacteria Urine Casts Urine Mucus Ur Culture Indicated? Urine Glucose Stl C.difficile Tox PCR Time Spent with Patient Time Spent with Patient: 35-49 minutes Time was spent: preparing to see the patient(eg.review tests), obtaining and/or reviewing separately otained hiistory, ordering medications,tests, procedures, referring, communicating with other health animal care service worker, indepentently interpreting results, counseling the patient and care coordination
[2022-12-23] MEDS: Loperamide 2 MG CAP NG (16:12)
[2022-12-23] MEDS: metroNIDAZOLE 500 MG/100 ML BAG 100 MG IVPB ×2 (16:27→22:36)
[2022-12-23] MEDS: Metoprolol 12.5 MG TAB 25 MG NG (19:55)
[2022-12-23] MEDS: Normal Saline Flush 10 ML SYR IVP (19:59)
[2022-12-23] MEDS: Heparin 5,000 UNITS/ML VIAL 5000 UNITS SC (22:36)
[2022-12-24] MEDS: Normal Saline Flush 10 ML SYR IVP ×3 (03:12→16:17)
[2022-12-24] MEDS: Metoprolol 12.5 MG TAB 25 MG NG ×4 (03:12→23:50)
[2022-12-24 03:44] VITALS: BP 166/93; PULSE 94; RESP 16; TEMP 36.1; O2SAT 95
[2022-12-24] MEDS: metroNIDAZOLE 500 MG/100 ML BAG 100 MG IVPB ×4 (03:53→23:53)
[2022-12-24 07:00] LABS: Abs Immature Grans 0.05 10^3/uL (0.0-0.06); Absolute Basophil Count 0.07 10^3/uL (0.0-0.2); Absolute Eosinophil Count 0.71 10^3/uL (0.0-0.7); Absolute Lymphocyte Count 2.27 10^3/uL (1.2-3.4); Absolute Neutrophil Count 10.35 10^3/uL (1.2-6.7); Basophils % 0.5; HCT 40.4 % (36.0-46.0); HGB 13.2 g/dL (11.2-15.7); Immature Grans % 0.4; Lymphocytes % 15.9; MCH 27.9 pg (27.0-33.0); MCHC 32.7 % (32.0-36.0); MCV 85 fL (80-95); MPV 10.8 fL (8.0-11.0); Monocytes % 5.6; Neutrophils % 72.6; Platelet Count 219 10^3/uL (130-400); RBC 4.73 10^6/uL (3.93-5.22); RDW 13.3 % (11.7-14.6); RDW-SD 42.2 fL; WBC 14.25 10^3/uL (4.4-10.8)
[2022-12-24 07:08] VITALS: BP 172/100; PULSE 91; RESP 18; TEMP 36.5; O2SAT 95
[2022-12-24 07:25] LABS: Anion Gap 7.3 mmol/L (3-11); BUN 16 mg/dL (7-18); C-Reactive Protein 1.95 mg/dL (0.0-0.3); CO2 29.7 mmol/L (21.0-32.0); CREATININE 0.5 mg/dL (0.55-1.02); Calcium 8.8 mg/dL (8.5-10.1); Chloride 98 mmol/L (98-107); Estimated GFR 103.38 (mL/min/1.73m2); Glucose 108 mg/dL (74-106); Magnesium 1.8 mg/dL (1.8-2.4); Potassium 4.1 mmol/L (3.5-5.1); Sodium 135 mmol/L (136-145)
[2022-12-24] MEDS: Lactobacillus Acidophilus CAP 1 CAP UD ×3 (09:03→23:54)
[2022-12-24] MEDS: Aspirin 81 MG CHEW UD (09:03)
[2022-12-24] MEDS: Heparin 5,000 UNITS/ML VIAL 5000 UNITS SC ×2 (09:06→23:45)
--- NOTE | 2022-12-24 09:09 | OT.INNT ---
Occupational Therapy Notes 12/24/22 OT consult received and pts chart was reviewed. OT attempted to consult with pt this morning who asks to decline at this time d/t not feel well. She states that she would like to consult tomorrow. OT will hold at this time and follow up with pt tomorrow morning. Pita Klein, OTR/L
--- NOTE | 2022-12-24 12:45 | IN_ITS ---
Date of service: 12/24/22 Time of Service: 11:18 PT Notes Visit Reasons: C Diff Colitis Physical Therapy Inpatient Initial Evaluation Date: 12/24/2022 Referring Doctor: Marquita Ortiz MD PT Orders: PT CONSULT: Limited ability Precautions: Fall. On enteric contact precautions. Activity as tolerated. Patient Profile/Admitting Diagnosis: Carmelina is a 67-year-old female recently diagnosed with ALS who presented to the ED on 12/12/2022 due to diarrhea and dehydration. Patient is admitted for management of sepsis, C. difficile colitis, shortness of breath, and hypertension. PMHX: All Active Problems? Leukocytosis (Acute) Diarrhea (Acute) ALS (amyotrophic lateral sclerosis) (Acute) peg tube placed Malnutrition (Acute) Shortness of breath (Acute) Hypertension (Chronic) Nausea & vomiting (Acute) Dysarthria and anarthria (Acute) Anxiety (Chronic) Pilonidal cyst of sanjiv cleft (Acute) CAD (coronary artery disease) (Chronic) Medical History? Abdominal discomfort Anxiety and depression Anxiety with depression Aphasia Back pain Back pain CAD (coronary artery disease) Colon cancer screening Decreased hearing Decreased hearing of both ears Distal radius fracture, right (~05/14/19) TRUONG (dyspnea on exertion) denies thisDysarthria Dysphagia Dyspnea on exertion Essential tremor Facial weakness Family history of breast cancer Family history of breast cancer Family history of breast cancer in first degree relative Fasciculations Headache Hematoma of vaginal vault after surgical procedure History of kidney stones Hypertension Kidney stones Motor neuron disease Muscle twitch Osteopenia Osteopenia Pain in right wrist Pain of left thumb Palliative care patient Post-nasal drip Screening for breast cancer Screening for colon cancer Stress incontinence Stress incontinence Suprapubic pain Thumb pain Tremulousness Weight loss Surgical History? H/O heart artery stent (~11/2018) ANN MARIE to RCA-no longer has to f/u with cardiology Normal colonoscopy (~11/02/20) S/P breast lumpectomy S/P coronary artery stent placement Social History/Home Situation: Lives with sister in a private home with 3 steps to enter. Has an option for staying on the main floor of the house as needed. Independent with household distances without an assistive device. Son and daughter are good support source. Equipment Owned/DME: [employer] Subjective: Daughter states that patient is not as short of breath that she was in the past days. Patient agreeable to get out of bed and to walking in the hallway. Objective: General Observation: Supine in bed. CPAP machine on. Low BMI. IV through R UE. Mental Status: Alert and oriented as to person, place, time, and purpose. Able to pay attention, focus, and respond appropriately. Pain: Denies Vital Signs: WNL as measured before mobilization OOB ROM: Right Upper Extremity: Shoulder Flexion WFL. Shoulder abduction WFL. Elbow flexion WFL. Wrist flexion WFL. Functional opening and closing of hand WFL. Left Upper Extremity: Shoulder Flexion WFL. Shoulder abduction WFL. Elbow flex ion WFL. Wrist flexion WFL. Functional opening and closing of hand WFL. Right Lower Extremity: Hip flexion WFL. Hip abduction WFL. Knee flexion WFL. Ankle dorsiflexion to neutral only. Ankle plantarflexion WFL. Left Lower Extremity: Hip flexion WFL. Hip abduction WFL. Knee flexion WFL. Ankle dorsiflexion to neutral only. Ankle plantarflexion WFL. Strength: Right Upper Extremity: Shoulder flexors 3+/5. Shoulder abductors 3+/5. Elbow flexors 4-/5. Elbow extensors 3+/5. [employer] strong. Left Upper Extremity: Shoulder flexors 3+/5. Shoulder abductors 3+/5. Elbow flexors 4-/5. Elbow extensors 3+/5. [employer] strong. Right Lower Extremity: Hip flexors 3+/5. Hip abductors 3+/5. Knee flexors 4-/5. Knee extensors 3+/5. Ankle dorsiflexors 3-/5. Ankle plantarflexors 4-/5. Left Lower Extremity: Hip flexors 3+/5. Hip abductors 3+/5. Knee flexors 4-/5. Knee extensors 3+/5. Ankle dorsiflexors 3-/5. Ankle plantarflexors 4-/5. Bed Mobility/Transfers: Rolling supervision Supine to sit supervision Sit to supine supervision Sit to stand supervision Stand to sit supervision Bed to toilet seat supervision Toilet seat to bed supervision Bed to reclining chair supervision Reclining chair to bed supervision Gait: Instructed patient with level surface ambulation of 250 feet requiring stand by assist sing FWW. Step height decreased. Step length decreased. No LOB. No SOB. Balance: Static Sitting: Normal Dynamic Sitting: Normal Static Standing: Good Dynamic Standing: Fair Special Tests: Mobility Limitations Standardized Measure [facility] AM-PAC 6 clicks Basic Mobility Inpatient Short Form: Raw Score: 23 CMS Score: 11% deficit 4-Stage Balance Test: Able to maintain feet together for 10 seconds but unable to do so for semi-tandem, full tandem and one-legged stance. Informed Consent/Education: Patient was instructed in purpose of PT consult and plan of care. Agreeable to proceed with established PT POC to achieve personal goals. Assessment: More able to conserve energy with report of no SOB with use of FWW during ambulation. Unable to complete 4-stage balance test today indicating risk for falls and need for assistive ambulatory device. Patient presents with clinical signs and symptoms consistent with current/admitting diagnoses that have resulted to mobility limitations, gait instability, generalized weakness, and overall ADL decline as demonstrated by the following impairment level findings: 1. Decreased strength to B UE/LE major muscle groups 2. Impaired standing balance 3. Impaired activity tolerance Impairments are contributing to the following functional limitations: 1. Difficulty with ambulation without assistive device 2. Increased completion time for mobility ADL performance 3. Increased risk for falls 4. Difficulty with managing steps alone safely Patient is assessed as a 55456 moderate complexity based on the following: History: 69-year-old female with past medical history as indicated above Examination: Demonstrable impairment in strength, balance, and mobility level with underlying impairments and functional limitations as exhibited above as well as deficit score of 11% utilizing the [facility] Mobility Inpatient Short Form Presentation: Evolving Decision Makin moderate complexity Goals: Goals X1 week 1. Supine-Sit independent 2. Sit-Supine independent 3. Sit-Stand independent 4. Stand-Sit independent with no AD 5. Bed-Chair independent with no AD 6. Chair-Bed independent with no AD 7. Independent gait on level surface with use of FWW for at least 300 feet without report of pain nor dyspnea 8. Independent stair negotiation while holding onto B rails for at least 3 steps without report of pain nor dyspnea 9. Independent with home exercise program 10. Good static and dynamic standing balance/tolerance Plan of Care/Treatment Plan: 1-2x/day, 7 days/week x 1 week. Plan of care has been reviewed with the HOME AID providing the service under Physical Therapy direction. Initiate Physical Therapy intervention for pain management as needed, strengthening, bed mobility, transfers, gait, stairs, balance training, and use of assistive device. DISCHARGE RECOMMENDATIONS: [] Home with no services [] [X] Home with services. Patient will benefit from home health PT services in order to progress mobility level using least restrictive assistive ambulatory device, assess home safety, identify additional equipment needs, and establish a functional maintenance program that will increase ability of patient to remain at home. [] Home with outpatient PT [] [] SNF for continued rehabilitation [] [] Care Home Care [] [] SNF versus LTC based on ability to participate and progress [] TREATMENT CODE/TIME: 07668 x 25 minutes, 53750 x 16 minutes beginning at 11:18 AM. Thank you for the opportunity to participate in the care of this patient. Aracelis Cruz PT, DPT, CLT [facility] [place], [place]
[2022-12-24 13:49] VITALS: BP 170/100; PULSE 92; RESP 18; TEMP 36.5; O2SAT 95
--- NOTE | 2022-12-24 13:51 | RESPIRATORY ---
RT Assessment Start: 12/23/22 15:08 Freq: .q shift and prn Status: Active Protocol: Document 12/24/22 08:39 BOUCHRA (Rec: 12/24/22 08:46 BOUCHRA [id number]) RT Assessment Smoking History Smoking/Tobacco Use Status Never OXYGEN HISTORY: Supplemental O2 At Rest 0 With Exertion 0 BIPAP Can you home machine Yes: DME: [facility] Trilogy/AVAPS Settings PS min 5/max 15, EPAP min 5/ max10 Can use home machine Yes DME/Compliance DME DME: [employer] Compliance yes Current Respiratory Symptoms Current Respiratory Symptoms Shortness of breath,Sputum production Activity Activity Level has ALS, not very active Respiratory Breath Sounds Breath Sounds Clear Response No change Pulse Rate <100 Respiratory Rate 18-25 Shortness of Breath On exertion Respiratory Therapy Score Total 2 Assessment and Plan RT Treatment Protocol No RT treatment protocols required at this time, re- consult if change Note Patient is clear, no other interventions needed this time
[2022-12-24] MEDS: Ondansetron O.D.T. 4 MG TABEF NG ×3 (14:02→23:49)
--- NOTE | 2022-12-24 14:45 | PDOC.CMIN ---
Date of service: 12/24/22 Time of Service: 14:45 Care Management Initial Assmt Initial Assessment REASON FOR HOSPITALIZATION:: C-Diff Colitis PREVIOUS FUNCTIONAL STATUS/SOCIAL/FAMILY SUPPORTS:: Carmelina lives in [facility]. She has ALS and requires full assistances with her ADL's and BRYAN's at baseline. CURRENT FUNCTIONAL STATUS:: Carmelina defers initial assessment today, she is not feeling well. CM will try again tomorrow. ADVANCE DIRECTIVES:: None on file Has patient been provided with info about the portal/API?: Yes Did the patient sign up for the portal?: No CODE STATUS:: DNR/DNI INSURANCE COVERAGE / FINANCIAL ISSUES:: [employer] Medicare CURRENT HOME/COMMUNITY SERVICES/EQUIPMENT:: [facility] DIMETHYLANILINE SULFATOR OPERATOR PHYSICIAN:: Myriam Kapoor POTENTIAL DISCHARGE NEEDS:: Evaluations for further needs PATIENT/FAMILY EDUCATION NEEDS:: Review discharge instructions, limitations, medications and plan to follow up with community providers. Discuss ask me three and goals of self care. TRANSPORTATION:: Dependent on dispo PLAN:: Carmelina is being closely monitored and treated. Awaiting PT recommendations. Palliative consult is ordered. CM will follow. PFSH All Active Problems (Updated 12/23/22 @ 15:18 by Marquita Ortiz MD) Discharge planning issues (Acute) DVT prophylaxis (Acute) Sepsis (Acute) C. difficile colitis (Acute) Leukocytosis (Acute) Diarrhea (Acute) ALS (amyotrophic lateral sclerosis) (Acute) peg tube placed Malnutrition (Acute) Shortness of breath (Acute) Hypertension (Chronic) Nausea & vomiting (Acute) Dysarthria and anarthria (Acute) Anxiety (Chronic) Pilonidal cyst of sanjiv cleft (Acute) CAD (coronary artery disease) (Chronic) Medical History Abdominal discomfort Anxiety and depression Anxiety with depression Aphasia Back pain Back pain CAD (coronary artery disease) Colon cancer screening Decreased hearing Decreased hearing of both ears Distal radius fracture, right (~05/14/19) TRUONG (dyspnea on exertion) denies this Dysarthria Dysphagia Dyspnea on exertion Essential tremor Facial weakness Family history of breast cancer Family history of breast cancer Family history of breast cancer in first degree relative Fasciculations Headache Hematoma of vaginal vault after surgical procedure History of kidney stones Hypertension Kidney stones Motor neuron disease Muscle twitch Osteopenia Osteopenia Pain in right wrist Pain of left thumb Palliative care patient Post-nasal drip Screening for breast cancer Screening for colon cancer Stress incontinence Stress incontinence Suprapubic pain Thumb pain Tremulousness Weight loss Surgical History H/O heart artery stent (~11/2018) ANN MARIE to RCA-no longer has to f/u with cardiology Normal colonoscopy (~11/02/20) S/P breast lumpectomy S/P coronary artery stent placement Family History Mother Hypertension Social History Smoking/Tobacco Use Status: Never Smoking risk assessment performed?: Yes Alcohol Intake: never Drug use: Never Substance use type: does not use Household members: none Housing: house Number of Children: 2 Education Level: college current occupation: Retired Current gender identity: female What type of physical activity do you participate in: additional Details: XCS Duration: 15-30 minutes/day Frequency: 3-4 times per week Do you feel safe at home: Yes Do you feel safe in your relationship?: Yes
[2022-12-24 15:39] VITALS: BP 181/98; PULSE 93; RESP 18; TEMP 36.4; O2SAT 95
--- NOTE | 2022-12-24 16:54 | RESPIRATORY ---
Pt uses a [employer] NHV, Mode: TTV-VAPS-AE RR: Auto on RA, VT 300ml, EPAP min 5/max 10, PS min 5/max 15. She uses an [employer] F20 size small and [facility].
--- NOTE | 2022-12-24 17:26 | STREC_ITS ---
Date of service: 12/24/22 Time of Service: 17:26 Speech Therapy Recommendations Report ST Recommendations: STRUCTURAL MANAGER Communication/Non-treatment note Consult received, chart reviewed for this 67 y/o patient known to STRUCTURAL MANAGER service (outpatient) with ALS. MBSS was completed late spring 2022. Patient has had fairly rapid onset and decline with bulbar sx but spinal motor control remains relatively well preserved. She recently had PEG tub placed and with significant complications requiring hospitalization at [facility] and now returning to [facility] with GI issues. Patient has previously been educated in basic principles of saliva management, speech decline and alternative/augmentative communication device options, oral care, and aspiration precautions specific to ALS. Patient was contacted at bedside with her sister and her children present. At this time she reports she has had absolutely no PO intake due to the discomfort, choking, coughing this causes. Patient was unwilling to participate in further STRUCTURAL MANAGER examination/evaluation at this time and wishes to wait for further STRUCTURAL MANAGER services on an outpatient basis once she has her GI symptoms under control. She is primarily using speech and gesture to communicate at this time, but uses notepad for clarification when needed. Per my previous recommendation she has downloaded a basic text-to speech rubén to her ipad, and also uses a notepad frequently to communicate. She does not wish to pursue any speech-generating device quite yet and would like to wait until she is more comfortable at home. Today I provided additional education and recommendations related to additional methods for rate enhancement with [id number] communication, with a focus on message banking to be able to participate fully in healthcare decision-making in the future. I did clarify that feeding tubes & NPO status do not eliminate risk of aspiration and that she should continue to focus on frequent oral care to reduce oral bacteria. I encouraged her to continue to consider limited amounts/methods of PO for comfort and pleasure such as popsicles, ice chips, etc. RECOMMENDATIONS: Diet recommendations: Continue alternative nutrition method with oral pleasure feedings (popsicles, ice chips, cold spoons dipped in water) as outlined by STRUCTURAL MANAGER and administered via trained caregiver Medication Intake: Via Tube RISK MANAGEMENT: HOB upright throughout day as tolerated to reduce reflux; upright for all PO intake including tube feedings. Encourage physical mobility as tolerated. Oral hygiene q4h/every 4 hours or before/after PO pleasure/comfort intake, using friction with toothbrush on all oral structures as tolerated Trial suction oral care kits with peroxide solution and hydrating gel for increased oral comfort ? Level of Assistance/Supervision: Independent with setup assist and distant supervision. PO intake only when awake/alert? Posture/Positioning Needs: Maintain upright position at least 30 minutes after meals (incl. tube feeds) Avoid meals/snacks 2-3 hours prior to reclining/sleeping (incl. tube feeds) Sleep with head of bed elevated to reduce likelihood of nocturnal reflux, Other PLAN: No further inpatient needs unless patient requests re-referral. Patient should follow-up with STRUCTURAL MANAGER as an outpatient as soon as she is able. Coding
--- NOTE | 2022-12-24 20:23 | PGE_ITS ---
Date of Service Date of service: 12/24/22 Time of Service: 20:23 Subjective Subjective Interval history since last seen: 67-year-old woman here with C. difficile colitis. She has advancing ALS and recently had a peg tube placed. This was complicated by an abscess formation and treatment with Augmentin. She subsequently got C. difficile. She has never had a lot of abdominal pain with this but she has had nausea and stomach upset. She has had 2 loose stools so far today. This is improved since yesterday. Her ALS has advanced to the point that is now affecting her speech and breathing. She cannot do the inspirometer at all and does not feel the Acapella is helping. She does not have any ongoing respiratory symptoms however. Exam Narrative Exam Narrative: On exam she is very pleasant. Her speech is quite muffled and quiet and difficult to understand at times. Her son is at the bedside and seems to understand her better. There was a concern about her anxiety medication. She was asking to try something other than lorazepam as she felt it was making her shaky. On exam her abdomen was overall soft and really not tender to palpate at all. Objective Last Vital Signs Temp 36.4 C L 12/24/22 15:39 Pulse 93 H 12/24/22 15:39 Resp 18 12/24/22 15:39 BP 181/98 H 12/24/22 15:39 Pulse Ox 95 12/24/22 15:39 Laboratory Results - last 24 hr 12/24/22 12/24/22 06:36 06:36 WBC 14.25 H RBC 4.73 Hgb 13.2 Hct 40.4 MCV 85 MCH 27.9 MCHC 32.7 RDW 13.3 Plt Count 219 MPV 10.8 Immature Gran % 0.4 Neutrophils % 72.6 Lymphocytes % 15.9 Monocytes % 5.6 Eosinophils % 5.0 Basophils % 0.5 Nucleated RBC % 0.0 Absolute Neutrophils 10.35 H Absolute Lymphocytes 2.27 Absolute Monocytes 0.80 Absolute Eosinophils 0.71 H Absolute Basophils 0.07 Sodium 135 L Potassium 4.1 Chloride 98 Carbon Dioxide 29.7 Anion Gap 7.3 BUN 16 Creatinine 0.5 L Est GFR (CKD-EPI 2020) 103.38 Glucose 108 H Calcium 8.8 Magnesium 1.8 C-Reactive Protein 1.95 H Objective Narrative Objective Narrative: C. difficile colitis. Her stool frequency has decreased. She is not having significant abdominal discomfort. Her symptoms are mostly nausea which could be a combination of the tube feeds and the C. difficile colitis. We are trying to work out a schedule where she gets antiemetic 30 minutes before her tube feeds but she cannot get it 5 times a day in addition to as needed. The family is somewhat unhappy that they are not able to affect more improvement in her symptomatology. She is overall improving. ALS. She does seem to have fairly rapidly advancing symptoms now affecting speech and breathing. She has not been using the CPAP as frequently as she needs it. She needs to use at least 4 hours a day to keep the machine. We know that ultimately she will likely require this to keep her breathing stable. Anxiety increase the lorazepam from 1 mg every 8 to 2 mg every 8 via her G-tube. She is somewhat resistant as she associates her abdominal pain and nausea with the clonazepam. I spoke to the son about trying to convince her as this more likely is going to help with some of her nausea and her anxiety. They are somewhat skeptical. We do not have a lot of good options to come in liquid form at our disposal at this time. Palliative care. Dr. May plans to see her tomorrow. Time Spent with Patient Time Spent with Patient: 35-49 minutes Time was spent: preparing to see the patient(eg.review tests), obtaining and/or reviewing separately otained hiistory, ordering medications,tests, procedures, referring, communicating with other health home health aide caregiver, indepentently interpreting results, counseling the patient and care coordination
[2022-12-24] MEDS: Mylanta Suspension 30 ML CUP NG (23:44)
[2022-12-25] VITALS: BP 176/103; PULSE 106; RESP 18; TEMP 36.3; O2SAT 95
[2022-12-25] MEDS: Metoprolol 12.5 MG TAB 25 MG NG ×2 (04:21→07:57)
[2022-12-25] MEDS: metroNIDAZOLE 500 MG/100 ML BAG 100 MG IVPB ×4 (04:23→22:03)
[2022-12-25 07:11] LABS: Abs Immature Grans 0.05 10^3/uL (0.0-0.06); Absolute Basophil Count 0.04 10^3/uL (0.0-0.2); Absolute Eosinophil Count 0.03 10^3/uL (0.0-0.7); Absolute Lymphocyte Count 1.59 10^3/uL (1.2-3.4); Absolute Neutrophil Count 12.11 10^3/uL (1.2-6.7); Basophils % 0.3; Eosinophils % 0.2; HCT 40.4 % (36.0-46.0); HGB 13.7 g/dL (11.2-15.7); Immature Grans % 0.3; MCH 28.2 pg (27.0-33.0); MCHC 33.9 % (32.0-36.0); MCV 83 fL (80-95); MPV 10.6 fL (8.0-11.0); Monocytes % 4.6; Neutrophils % 83.6; Platelet Count 211 10^3/uL (130-400); RBC 4.85 10^6/uL (3.93-5.22); RDW 13.2 % (11.7-14.6); RDW-SD 40.6 fL; WBC 14.48 10^3/uL (4.4-10.8)
[2022-12-25 07:18] LABS: Absolute Monocyte Count 0.67 10^3/uL (0.1-0.8)
[2022-12-25 07:42] LABS: Anion Gap 7.8 mmol/L (3-11); BUN 15 mg/dL (7-18); CO2 30.2 mmol/L (21.0-32.0); CREATININE 0.6 mg/dL (0.55-1.02); Chloride 95 mmol/L (98-107); Estimated GFR 98.93 (mL/min/1.73m2); Glucose 136 mg/dL (74-106); Potassium 4.2 mmol/L (3.5-5.1); Sodium 133 mmol/L (136-145)
[2022-12-25] MEDS: Ondansetron O.D.T. 4 MG TABEF NG ×2 (07:56→13:25)
[2022-12-25] MEDS: Aspirin 81 MG CHEW UD (07:57)
[2022-12-25] MEDS: Lactobacillus Acidophilus CAP 1 CAP UD ×3 (08:00→21:57)
[2022-12-25] MEDS: Heparin 5,000 UNITS/ML VIAL 5000 UNITS SC ×2 (08:11→21:56)
[2022-12-25 08:56] VITALS: BP 190/110; PULSE 95; RESP 20; TEMP 36.6; O2SAT 97
--- NOTE | 2022-12-25 09:01 | OTIE_ITS ---
Occupational Therapy Notes Inpatient Occupational Therapy Evaluation Date: 12/25/22 Referring Doctor: OT Orders: Non urgent Precautions: Fall, standard, DNR/DNI PATIENT PROFILE/ADMITTING DIAGNOSIS: Pt is a 7 year old female admitted to Med Surg with the following dx of Sepsis, C.Difficile colitis, leukocytosis, diarrhea, ALS, malnutrition, hypertension, dysarthria and anarthria, anxiety, CAD, pilonidal cyst of sanjiv cleft. Past Medical History: All Active Problems? Leukocytosis (Acute) Diarrhea (Acute) ALS (amyotrophic lateral sclerosis) (Acute) peg tube placedMalnutrition (Acute) Shortness of breath (Acute) Hypertension (Chronic) Nausea & vomiting (Acute) Dysarthria and anarthria (Acute) Anxiety (Chronic) Pilonidal cyst of cleft (Acute) CAD (coronary artery disease) (Chronic) Medical History? Abdominal discomfort Anxiety and depression Anxiety with depression Aphasia Back pain Back pain CAD (coronary artery disease) Colon cancer screening Decreased hearing Decreased hearing of both ears Distal radius fracture, right (~05/14/19) TRUONG (dyspnea on exertion) denies thisDysarthria Dysphagia Dyspnea on exertion Essential tremor Facial weakness Family history of breast cancer Family history of breast cancer Family history of breast cancer in first degree relative Fasciculations Headache Hematoma of vaginal vault after surgical procedure History of kidney stones Hypertension Kidney stones Motor neuron disease Muscle twitch Osteopenia Osteopenia Pain in right wrist Pain of left thumb Palliative care patient Post-nasal drip Screening for breast cancer Screening for colon cancer Stress incontinence Stress incontinence Suprapubic pain Thumb pain Tremulousness Weight loss Surgical History? H/O heart artery stent (~11/2018) ANN MARIE to RCA-no longer has to f/u with cardiologyNormal colonoscopy (~11/02/20) S/P breast lumpectomy S/P coronary artery stent placement Social History/Home Situation: Pt lives at home, her son was present in the room when OT arrived and reports that she has all the adaptive equipment that she needs for her ADLs. She has a supportive family and they report that prior to her surgery she was very (I). She is weak and fatigued right now and they feel that this is what is limiting her at this time. SUBJECTIVE: Pt was lying in bed when OT arrived. She is a very pleasant 67 year old female and notes that she is tired today. She is receptive to performance of her ADLs. OBJECTIVE: General Observation: Pleasant, IV in (L) UE, Peg tube in place Mental Status: A&Ox3 ROM: RUE AROM WFL but weak and increased fatigue limits her functional activity tolerance L UE AROM WFL but weak and increased fatigue limits her functional activity tolerance FUNCTIONAL MOBILITY/ADLS: Transfers in bed rolling (I) BATHING lying in bed with max (A) set up/clean up Bathing UE able to bring hand to face but too fatigued to perform this (I), OT performed with max (A) face, (B) UE, abdomen, max (A) hair Bathing LE max (A) (B)_ UE DRESSING lying in bed Dressing UE max (A) [facility] gown Dressing LE NT GROOMING mod (A) brushing hair TOILETING NT EATING Peg tube placement SPECIAL TESTS: Daily Activity Limitations Standardized Measure [facility] AM -PAC ?6 clicks? Daily Activity Inpatient Short Form: Raw score: 8 Standardized score: 22.86 CMS score: 85.69% INFORMED CONSENT/EDUCATION: Pt instructed in purpose of OT Consult and plan of care. ASSESSMENT: Patient is a 67-year-old female referred to occupational therapy services with diagnosis of Sepsis, C.Difficile colitis, leukocytosis, diarrhea, ALS, malnutrition, hypertension, dysarthria and anarthria, anxiety, CAD, pilonidal cyst of cleft. 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 AMPAC score 8 Patient is assessed as a high 44072 complexity based on the following: History: see above Examination: see functional limitations as noted above Presentation: evolving Decision Making: AMPAC score 8 GOALS Goals x1 week 1. Transfers mod (A) 2. Dressing (I) UE, mod (A) LE 3. Bathing max (A) set up (I) UE, mod (A) LE 4. Toileting on commode with mod (A) PLAN OF CARE/TREATMENT PLAN: 1x/day, 5 days/ week x 1week Initiate Occupational Therapy Services for bathing, dressing, grooming, toileting, eating, transfer training. DISCHARGE RECOMMENDATIONS Based on pts current level of function, OT recommends home with services vs. SNF. Pt would benefit to return home with services to be in her own environment for performance of her ADLs/IADLs. Family does not feel that pt would need further adaptive equipment at this time. She does have difficulty with verbal communication, but she is working with NATURAL GAS INSPECTOR. OT will defer to her recommendations for oral/verbal communications. TREATMENT TIME/MINUTES/CODES [id number], [id number], 32 minutes Pita Klein OTR/[facility] [place], [place]
--- NOTE | 2022-12-25 09:55 | CMPROGNOTE_ITS ---
Date of service: 12/25/22 Time of Service: 09:55 Care Management Progress Note Progress Note Text Progress Note Text: S/O: Carmelina was visiting with her daughter Marianne and working with PT when CM attempted to meet with her. Discharge considerations at this time are home with resumption of [facility] services and caregiver support vs. Home on Hospice, dependent on her goals of care. Dr. May is meeting with Carmelina and her family today. CM will continue to follow. A: 67 year old female admitted to [facility] on 12/23/22 for c-diff colitis P: Home with resumption of [facility] services and caregiver support vs. home on Hospice. Palliative meeting with patient and family today to discuss goals of care. CM will follow.
--- NOTE | 2022-12-25 10:19 | PT.INNT ---
PT Notes Visit Reasons: C Diff Colitis 12/25/22 Pt approached multiple time during the course of the morning, pt unavailable on first attempt with pt having MD inside the room, pt unable on second attempt due to nurse doing ADL's, pt unable on third attempt due to nurse doing procedure (bolus feed). will attempt to engage pt later in the afternoon if the room is not busy.
[2022-12-25 13:17] VITALS: BP 158/95; PULSE 89; TEMP 36.3; O2SAT 94
[2022-12-25] MEDS: Metoprolol 50 MG TAB NG ×2 (14:42→22:02)
--- NOTE | 2022-12-25 14:50 | PCNE_ITS ---
Date of service: 12/25/22 Time of Service: 14:50 History of Present Illness History of Present Illness Chief Complaint: diarrhea, ALS Narrative: From H and P History of Present Illness History of Present Illness?Chief Complaint: diarrhea?Narrative: 66 female with recent diagnosis of ALS, manifesting primarily with dysphagia and dysphonia. 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 Has been on Augmentin since, and has been started on tube feeds. Was also started on Zoloft and Riluzole. Since that time patient has been having diarrhea, up to 5/day, loose, no blood, and no abdominal pain or fever. She was sent to the ER today for evaluation because her home health nurse apparently noted some abnormal lung sounds and noted shallow breathing. Here in ER findings of note for absence of fever and tachypnea, O2 sats mid-90s on RTA; white count 18, negative CXR, and abd CT showing small amount free air? and no abcess, as well as possible right sided colitis. Case and films were reviewed with her team at [facility] and they felt the imaging was all imroving and there was nmo need for any change in treatment or surgical intervention. An additional finding was of Lipase 375, Bun 32 and Creat 0.7. Interim hx: Today Carmelina and I met with family. Initially they wanted to wait on a Palliative Care meeting , but then agreed to meet. Prior to Carmelina's hospitalization she had an appt with me for a home visit. Carmelina has been nauseaus and weak. She is receiving tube feedings from her family. Carmelina was recently diagnosed with ALS. She is involved with the ALS team at [facility] and sees . He also Dr. Crystal Perez. She has had difficulty with nausea. This has been ongoing. She does have a feeding tube. I was originally going to be seeing Carmelina in her home. She was admitted with diarrhea to [facility] prior to our visit. She was diagnosed with C. difficile. Family states that her diarrhea has decreased. Family members are unsure of next steps. They state that if she goes on hospice then she cannot consent continue to see her ALS team. They also do not feel that palliative care will give them any advantage over sticking with the [facility] ALS team. Assessment and Plan Assessment and plan (1) C. difficile colitis: Status: Acute Assessment and plan: Appropriately treated. Diarrhea improving (2) ALS (amyotrophic lateral sclerosis): Status: Acute (3) Malnutrition: Status: Acute Assessment and plan: PEG tube in place (4) Palliative care encounter: Status: Acute Assessment and plan: Many people who have difficult to control nausea do very well on a low-dose of Zyprexa 5 mg daily if she does not respond to other medications I would recommend this We did talk about hospice. They are under the impression that if she is on hospice she would not be able to visit her ALS team. I explained that in general the services that they would help her with would be ones that hospice could provide. They did not want to give up their ALS team at [facility] Regarding palliative care they were told that they did not need palliative care since they had the ALS team. She said this was from the people at [facility]. I did explain that we are closer and therefore may be able to respond to her needs in a more timely fashion. At this point I left the ball in their court. If they would like me to come for a home visit when she is out of the office I am happy to do so. I was told that she was interested in [facility]. We did not discuss how she is feeling and what her thoughts are on this. They will choose whether or not they want to proceed with either palliative care, and keep their ALS team for hospice. Seeing Carmelina in the bed with significant weight loss and multiple symptoms, she looks uncomfortable. I hope to see them again soon. Review of Systems Narrative: The biggest problem right now is that Carmelina has malnutrition. She is receiving a feeding tube. She continues with nausea. PFSH All Active Problems (Updated 12/26/22 @ 16:32 by Darleen May MD, [place]) Palliative care encounter (Acute) Discharge planning issues (Acute) DVT prophylaxis (Acute) Sepsis (Acute) C. difficile colitis (Acute) Leukocytosis (Acute) Diarrhea (Acute) ALS (amyotrophic lateral sclerosis) (Acute) peg tube placed Malnutrition (Acute) Shortness of breath (Acute) Hypertension (Chronic) Nausea & vomiting (Acute) Dysarthria and anarthria (Acute) Anxiety (Chronic) Pilonidal cyst of sanjiv cleft (Acute) CAD (coronary artery disease) (Chronic) Medical History Abdominal discomfort Anxiety and depression Anxiety with depression Aphasia Back pain Back pain CAD (coronary artery disease) Colon cancer screening Decreased hearing Decreased hearing of both ears Distal radius fracture, right (~05/14/19) TRUONG (dyspnea on exertion) denies this Dysarthria Dysphagia Dyspnea on exertion Essential tremor Facial weakness Family history of breast cancer Family history of breast cancer Family history of breast cancer in first degree relative Fasciculations Headache Hematoma of vaginal vault after surgical procedure History of kidney stones Hypertension Kidney stones Motor neuron disease Muscle twitch Osteopenia Osteopenia Pain in right wrist Pain of left thumb Palliative care patient Post-nasal drip Screening for breast cancer Screening for colon cancer Stress incontinence Stress incontinence Suprapubic pain Thumb pain Tremulousness Weight loss Surgical History H/O heart artery stent (~11/2018) ANN MARIE to RCA-no longer has to f/u with cardiology Normal colonoscopy (~11/02/20) S/P breast lumpectomy S/P coronary artery stent placement Family History Mother Hypertension Social History Smoking/Tobacco Use Status: Never Smoking risk assessment performed?: Yes Alcohol Intake: never Drug use: Never Substance use type: does not use Household members: none Housing: house Number of Children: 2 Education Level: college current occupation: Retired Current gender identity: female What type of physical activity do you participate in: additional Details: XCS Duration: 15-30 minutes/day Frequency: 3-4 times per week Do you feel safe at home: Yes Do you feel safe in your relationship?: Yes Exam Narrative Exam Narrative: Carmelina is lying in bed in the position. She is being fed through her PEG tube. Her family member is appropriately going slow with this. She did shake my hand but did not interact much with me. Family members answered most questions Results Last Vital Signs Temp 97.4 F L 12/25/22 13:17 Pulse 89 12/25/22 13:17 Resp 20 12/25/22 08:56 BP 158/95 H 12/25/22 13:17 Pulse Ox 94 12/25/22 13:17 Labs 12/26/22 06:25 12/26/22 06:25 Labs: Laboratory Results - last 24 hr 12/25/22 12/25/22 06:56 06:56 WBC 14.48 H RBC 4.85 Hgb 13.7 Hct 40.4 MCV 83 MCH 28.2 MCHC 33.9 RDW 13.2 Plt Count 211 MPV 10.6 Immature Gran % 0.3 Neutrophils % 83.6 Lymphocytes % 11.0 Monocytes % 4.6 Eosinophils % 0.2 Basophils % 0.3 Nucleated RBC % 0.0 Absolute Neutrophils 12.11 H Absolute Lymphocytes 1.59 Absolute Monocytes 0.67 Absolute Eosinophils 0.03 Absolute Basophils 0.04 Sodium 133 L Potassium 4.2 Chloride 95 L Carbon Dioxide 30.2 Anion Gap 7.8 BUN 15 Creatinine 0.6 Est GFR (CKD-EPI 2020) 98.93 Glucose 136 H Calcium 9.0 Imaging Additional studies: abd/pelvic FINDINGS: Exam is limited by motion. ABDOMEN and PELVIS: Lung Bases: Normal where visualized. Liver: Normal density. No measurable mass. Gallbladder and biliary tract: No radiodense calculus or dilation.? Pancreas: Normal density, no abnormal calcifications or inflammatory process. Spleen: Normal. Kidneys: Normal size, contour and axis. No radiodense stones or obstructive uropathy. No suspicious masses seen. Adrenal glands: No masses seen. Abdominal Aorta: Abdominal portion non-dilated. Soft tissues: Peg tube.? Small amount of air in the left upper abdominal wall. Bladder:? No gross wall thickening. No calculi.No focal mass. Bowel: A PEG tube is noted.? There is no surrounding abscess or fluid collection.? No obstruction. ? Portions of the bowel are difficult to the to evaluate due to motion.? The majority of the colon is free of stool.? There is a question of some wall thickening of the right colon.? Appendix normal. Peritoneal cavity: Free air noted.? This may be secondary to recent PEG tube placement.? No ascites, collection or mesenteric inflammatory response. Bones: Advanced degenerative changes in the lumbar spine. Reproductive organs: Apparent endometrial thickening versus fluid within the endometrium.? Measures 8 millimeters in thickness.? Lymph nodes: Unremarkable.? Impression: The PEG tube appears to be appropriately positioned.? No surrounding fluid collection or abscess. Free air. Endometrial thickening versus fluid within the endometrium.? Pelvic ultrasound could be performed for further evaluation.
--- NOTE | 2022-12-25 15:06 | PT.INTREAT ---
PT Notes Visit Reasons: C Diff Colitis 12/25/2022 Precautions: Fall.??On enteric contact precautions. Activity as tolerated. SUBJECTIVE: ?Pt awake this afternoon, agreed to participating with therapy. OBJECTIVE: ? PAIN: No c/o pain ? BED MOBILITY/TRANSFERS? Supine to EOB: S? Sit-stand: S? Stand-sit: S ? ? EOB to supine: S ? GAIT? Assistive Device: FWW? Weight bearing: Full Assist: SBA ? Distance:? 450' ? Deviation: Cueing for increased step length, slow pacing ASSESSMENT:? Pt very alert and responsive this afternoon, pt able to follow verbal cues, required tactile cue to slow down close to the end of gait training since pt gait speed pickuped significantly with pt getting too far away from FWW, pt education about pacing and taking standing rest breaks during gait training to avoid speeding up when pt starts feeling fatigue. PLAN: Continue with global strengthening and general conditioning for improved mobility and activity tolerance. TREATMENT CODE/TIME: ?68880 gait trainingx1 (2:55-3:10pm)
[2022-12-25 16:10] VITALS: BP 109/73; PULSE 89; RESP 20; TEMP 36.6; O2SAT 95
--- NOTE | 2022-12-25 20:16 | PGE_ITS ---
Date of Service Date of service: 12/25/22 Time of Service: 20:17 Assessment and Plan Assessment and plan (1) Sepsis: Status: Acute Assessment and plan: Due to C. diff colitis, present on admission. See below. (2) C. difficile colitis: Status: Acute Assessment and plan: Change metronidazole to per tube tomorrow. Continue per tube vancomycin. Continue probiotics, Prn loperamide, banatrol. I did consult nutrition for any advice re tube feeding-related diarrhea. (3) ALS (amyotrophic lateral sclerosis): Status: Acute Assessment and plan: I have asked for RT to do NIFs. Continue Home AVAPS machine (4) Shortness of breath: Status: Acute Assessment and plan: Due to above. As above (5) Hypertension: Status: Chronic Assessment and plan: Increase metoprolol to 50 mg per tube Q6 hrs. (6) DVT prophylaxis: Status: Acute Assessment and plan: SC heparin (7) Discharge planning issues: Status: Acute Assessment and plan: DNR/DNI PT, OT, speech, palliative care, RT following Anticipate discharge home tomorrow. Subjective Subjective Interval history since last seen: Ms Ellis feels better today. Nausea and diarrhea are both better. Denies dizziness, CP, SOB, abdominal pain. Worked with PT. Met with Dr May today. Exam Narrative Exam Narrative: General: Pleasant middle-aged female with dysarthria, somewhat difficult to understand, communicating more by writing today, A&Ox3, mildly tachypneic HEENT: EOMI, MMM Heart: RRR, no m/r/g Lungs: Diminished breath sounds B Abdomen: soft, nontender, nondistended Extremities: no edema BLEs Objective Last Vital Signs Temp 36.6 C 12/25/22 16:10 Pulse 89 12/25/22 16:10 Resp 20 12/25/22 16:10 BP 109/73 12/25/22 16:10 Pulse Ox 95 12/25/22 16:10 Laboratory Results - last 24 hr 12/25/22 12/25/22 06:56 06:56 WBC 14.48 H RBC 4.85 Hgb 13.7 Hct 40.4 MCV 83 MCH 28.2 MCHC 33.9 RDW 13.2 Plt Count 211 MPV 10.6 Immature Gran % 0.3 Neutrophils % 83.6 Lymphocytes % 11.0 Monocytes % 4.6 Eosinophils % 0.2 Basophils % 0.3 Nucleated RBC % 0.0 Absolute Neutrophils 12.11 H Absolute Lymphocytes 1.59 Absolute Monocytes 0.67 Absolute Eosinophils 0.03 Absolute Basophils 0.04 Sodium 133 L Potassium 4.2 Chloride 95 L Carbon Dioxide 30.2 Anion Gap 7.8 BUN 15 Creatinine 0.6 Est GFR (CKD-EPI 2020) 98.93 Glucose 136 H Calcium 9.0 Time Spent with Patient Time Spent with Patient: 25-34 minutes Time was spent: preparing to see the patient(eg.review tests), obtaining and/or reviewing separately otained hiistory, ordering medications,tests, procedures, referring, communicating with other health direct care staffer, indepentently interpreting results, counseling the patient and care coordination
[2022-12-25] MEDS: Mylanta Suspension 30 ML CUP NG (21:56)
[2022-12-25 22:30] VITALS: BP 181/102; PULSE 82; RESP 20; TEMP 36.6; O2SAT 95
[2022-12-26] MEDS: Metoprolol 50 MG TAB NG ×3 (03:54→13:20)
[2022-12-26] MEDS: metroNIDAZOLE 500 MG/100 ML BAG 100 MG IVPB ×3 (03:55→15:55)
[2022-12-26 06:35] VITALS: BP 201/109; PULSE 81; RESP 18; TEMP 36.6; O2SAT 95
[2022-12-26 06:43] VITALS: BP 145/81
[2022-12-26 07:29] LABS: Abs Immature Grans 0.07 10^3/uL (0.0-0.06); Absolute Basophil Count 0.05 10^3/uL (0.0-0.2); Absolute Eosinophil Count 0.25 10^3/uL (0.0-0.7); Absolute Lymphocyte Count 2.39 10^3/uL (1.2-3.4); Absolute Monocyte Count 0.98 10^3/uL (0.1-0.8); Absolute Neutrophil Count 8.51 10^3/uL (1.2-6.7); Basophils % 0.4; HCT 40.7 % (36.0-46.0); HGB 13.5 g/dL (11.2-15.7); Immature Grans % 0.6; Lymphocytes % 19.5; MCHC 33.2 % (32.0-36.0); MCV 84 fL (80-95); MPV 10.8 fL (8.0-11.0); Neutrophils % 69.5; Platelet Count 231 10^3/uL (130-400); RBC 4.83 10^6/uL (3.93-5.22); RDW 13.5 % (11.7-14.6); WBC 12.25 10^3/uL (4.4-10.8)
[2022-12-26 07:52] LABS: Anion Gap 4.3 mmol/L (3-11); BUN 19 mg/dL (7-18); CO2 33.7 mmol/L (21.0-32.0); CREATININE 0.6 mg/dL (0.55-1.02); Calcium 8.5 mg/dL (8.5-10.1); Chloride 97 mmol/L (98-107); Estimated GFR 98.93 (mL/min/1.73m2); Glucose 109 mg/dL (74-106); Magnesium 1.8 mg/dL (1.8-2.4); Potassium 4.7 mmol/L (3.5-5.1); Sodium 135 mmol/L (136-145)
[2022-12-26] MEDS: Lactobacillus Acidophilus CAP 1 CAP UD ×2 (08:48→13:19)
[2022-12-26] MEDS: Heparin 5,000 UNITS/ML VIAL 5000 UNITS SC (08:49)
[2022-12-26] MEDS: Aspirin 81 MG CHEW UD (08:49)
[2022-12-26] MEDS: Normal Saline Flush 10 ML SYR IVP ×2 (10:28→15:56)
[2022-12-26] MEDS: Ondansetron O.D.T. 4 MG TABEF NG (13:20)
--- NOTE | 2022-12-26 14:58 | W.PALPGNOTE ---
Date of service: 12/26/22 Time of Service: 14:59 Assessment and Plan Assessment and plan (1) ALS (amyotrophic lateral sclerosis): Status: Acute Assessment and plan: Dx 10/2022. Has not seen ALS group at [facility] yet. Feeding tube in place. (2) C. difficile colitis: Status: Acute (3) Sepsis: Status: Acute (4) Malnutrition: Status: Acute Assessment and plan: Has lost about 30# over last 6 months. (5) Dysarthria and anarthria: Status: Acute (6) Nausea & vomiting: Status: Acute (7) Palliative care encounter: Status: Acute Assessment and plan: Brielle has a new Dx of ALS (2 months ago). She has not seen ALS group at [facility] yet. She is interested in seeing them. Her biggest complaint is nausea- hospitalist working on this symptom. She has lost 30# over the last 6 months. She has a feeding tube in place. She is on Abx and probiotics. She is clear that she is a DNR/DNI. She wants her daughter, Ashley and sister, Yvette to be her health care agents. Offered to complete documentation including [facility] and [facility] paperwork but she prefers to do at home with Palliative visit. Her goal is to remain in her home. She lives with her sister, Yvette and has a lot of support. She is interested in [facility]. She would like to see Dr. May at her next available home visit. Discussed hospice. She is not ready for hospice yet. Will continue to discuss options at future visits. Subjective Subjective Interval history since last seen: Brielle was seen with her daughter, Ashley, son, and sister, Yvette. She was seen by Palliative yesterday but she was not feeling well and was not able to engage in the visit. She was diagnosed with ALS in October (2 months ago). She has not met with the ALS group at [facility] yet. She was going to meet with them but they referred her to the ED for nausea. They are waiting for a call back to set up an appointment. She has a feeding tube in place (11/28/22) Her biggest concern at this point is nausea. She is taking zofran and reglan. She has lost 30# since June. She has had falls at home. She has a NIV machine at home that has been helpful for her respiratory difficulties. She lives with her sister, Yvette. She is interested in seeing the ALS providers at [facility]. She is also interested in [facility]. She was scheduled to meet with Dr. May to discuss [facility] yesterday (outpatient) but they were not able to have that visit yet. She would like to meet with Dr. May as soon as she is available. Discussed the importance of selecting [facility]. She is clear that she wants her daughter and sister to be her agents: Ashley Schrader (daughter) and Yvette Ellis (sister). She is clear that she is a DNR/DNI. She prefers to complete the forms to make the above official at home. Will complete with palliative visit. Discussed the option of hospice and what hospice can offer. They prefer to continue with Palliative for now. Exam Narrative Exam Narrative: General: very thin, middle aged female, ambulated from the bathroom to the bed. She is awake and alert. Engaged in the visit. Her speech is difficult to understand, she has to write to communicate at times. HEENT: normocephalic, atraumatic, EOMI, mmm. Neck: supple. Respiratory: respirations appear even and unlabored. Extremities: moves all 4 extremities. Objective Last Vital Signs Temp 36.6 C 12/26/22 06:35 Pulse 81 12/26/22 06:35 Resp 18 12/26/22 06:35 BP 145/81 H 12/26/22 06:43 Pulse Ox 95 12/26/22 06:35 Laboratory Results - last 24 hr 12/26/22 12/26/22 06:25 06:25 WBC 12.25 H RBC 4.83 Hgb 13.5 Hct 40.7 MCV 84 MCH 28.0 MCHC 33.2 RDW 13.5 Plt Count 231 MPV 10.8 Immature Gran % 0.6 Neutrophils % 69.5 Lymphocytes % 19.5 Monocytes % 8.0 Eosinophils % 2.0 Basophils % 0.4 Nucleated RBC % 0.0 Absolute Neutrophils 8.51 H Absolute Lymphocytes 2.39 Absolute Monocytes 0.98 H Absolute Eosinophils 0.25 Absolute Basophils 0.05 Sodium 135 L Potassium 4.7 Chloride 97 L Carbon Dioxide 33.7 H Anion Gap 4.3 BUN 19 H Creatinine 0.6 Est GFR (CKD-EPI 2020) 98.93 Glucose 109 H Calcium 8.5 Magnesium 1.8
[2022-12-26 15:37] VITALS: BP 182/102; PULSE 75; RESP 22; TEMP 36.3; O2SAT 96
--- NOTE | 2022-12-26 16:15 | PT.INNT ---
PT Notes Visit Reasons: C Diff Colitis Pt unavailable during the multiple attempts done today..
--- NOTE | 2022-12-26 16:19 | DSE_ITS ---
Date of service: 12/26/22 Time of Service: 16:19 DS: Diagnosis Discharge Diagnosis (1) Sepsis: Status: Acute (2) C. difficile colitis: Status: Acute (3) ALS (amyotrophic lateral sclerosis): Status: Acute (4) Shortness of breath: Status: Acute (5) Hypertension: Status: Chronic (6) Anxiety: Status: Chronic Discharge Plan Disposition Patient Disposition: Home W/Home Health Services Condition: Improving Discharge Details Reason For Visit: C Diff Colitis Admit Date/Time: 12/23/22 11:25 Admit Provider: Noam Hassan Attending Provider: Noam Hassan Primary Care Provider: Myriam Kapoor Hospital Course Hospital Course: Ms Ellis is a 67 year old female who was recently diagnosed with ALS with dy sphagia s/p PEG, dysarthria, and respiratory muscle weakness, AVAPS dependent, secondary to this, who had just completed a course of augmentin for an intraabdominal abscess 1-2 days prior to her presentation, who was admitted to [facility] hospitalist service on 12/22/22 with sepsis due to C. Diff colitis. She was initiated on enteral vancomycin as well as IV metronidazole, probiotics, loperamide, antiemetics, addition of banatrol to her tube feeding formula, IVF. Her symptoms did improve quite rapidly on this therapy and she is being discharged home today to complete a two week course of enteral vancomycin and metronidazole. The patient's nausea has been persistent and metoclopramide appears to be better for it than ondansetron. This has been prescribed. The patient was noted to be quite hypertensive here. She was initiated on lopressor 50 mg per tube Q6 hrs as well as a low dose clonidine patch (which would also help her anxiety). The patient met with palliative care to discuss goals of care. The patient is interested in Act 39, but would like to discuss it further at home. Palliative care will follow up with her at home. The patient is medically stable for discharge home today. Prior authorization was filled out for her vancomycin, in addition to which the hospital is dispending enough vancomycin solution for the patient to get through the weekend until her pharmacy can fill it out. Care for patient as well as completion of her discharge summary and coordination of care on discharge took 60 minutes. Home Meds and New Rx's Prescriptions: New clonidine 0.1 mg/24 hr Patch Weekly 0.1 mg transdermal Q7D Qty: 4 3RF famotidine 40 mg/5 mL (8 mg/mL) Suspension 10 mg feeding tube BID Qty: 75 0RF metoclopramide HCl 5 mg/5 mL Solution 5 mg NG 1000,1300,1900,2200 Qty: 600 0RF metoprolol tartrate 50 mg Tablet 50 mg NG Q6H Qty: 120 0RF Lactobacillus acidophilus 500 million cell Capsule 1 cap UD TID Qty: 90 0RF metronidazole 500 mg tablet 500 mg feeding tube Q6H Qty: 43 0RF loperamide 1 mg/7.5 mL liquid 2 mg feeding tube Q1-4H PRN (Reason: loose stool) Qty: 120 0RF Rx Instructions: administer after each loose stool until symptoms controlled; do not exceed 16 mg per 24 hrs Banatrol Plus Powder In Packet 1 packet PO TID Qty: 75 0RF Rx Instructions: per feeding tube vancomycin 25 mg/mL recon soln 125 mg PO QID Qty: 150 0RF Continued nitroglycerin 0.4 mg tablet, sublingual 0.4 mg SL Q5M PRN mecobalamin (vitamin B12) 1,000 mcg tablet,chewable 1,000 mcg PO DAILY PRN vitamin B complex [B Complex-Vitamin B12] Tablet 1 tab PO DAILY PRN aspirin [Adult Low Dose Aspirin] 81 mg tablet,delayed release (DR/EC) 81 mg PO DAILY riluzole [Rilutek] 50 mg tablet 50 mg PO BID lorazepam 2 mg/mL concentrate See Rx Instructions .ROUTE .COMPLEX Patient Comments: TAKE 0.25ML VIA GIVE TUBE THREE TIMES A DAY NEEDED CAN INCREASE TO 1/2 ML IF TOLERATING BUT NEED MORE RELIEF Rx Instructions: TAKE 0.25ML VIA GIVE TUBE THREE TIMES A DAY NEEDED CAN INCREASE TO 1/2 ML IF TOLERATING BUT NEED MORE RELIEF sertraline 20 mg/mL Concentrate 75 mg feeding tube DAILY Rx Instructions: 75MG=3.75ML (VIA PEG TUBE) cetirizine 1 mg/mL Solution 10 mg feeding tube QPM Rx Instructions: VIA PEG TUBE Changed ondansetron HCl 4 mg tablet 4 mg feeding tube BID PRNQty: 0 0RF clonazepam 0.5 mg tablet 0.5 mg feeding tube BID PRN PRNQty: 0 0RF Discontinued amoxicillin-pot clavulanate [Augmentin] 500-125 mg tablet 1 tab PO BID lorazepam [Ativan] 2 mg tablet 2 mg PO TID PRN polyethylene glycol 3350 [Miralax] 17 gram/dose powder 17 g PO DAILY metoprolol succinate 25 mg capsule,sprinkle,ER 24hr 25 mg PO DAILY Qty: 30 0RF ondansetron 4 mg tablet,disintegrating 4 mg PO Q6H PRNQty: 20 0RF famotidine [Pepcid AC] 20 mg tablet 20 mg PO BID Qty: 30 0RF Discharge Instructions Instructions: Metoprolol (By mouth), Metronidazole (By mouth), Clonidine (Absorbed through the skin), Vancomycin (By mouth), C. Diff (Clostridioides Difficile) Infection (DC), Hypertension (DC) Additional Instructions: Finish metronidazole and vancomycin as described. Return to the hospital with any fever, bleeding, chest pain, shortness of breath. Follow up with palliative care. Follow up with your PCP In 1-2 weeks. Care Plan Goals: Home with resumption of home health nursing and addition of new PT/OT. Stand Alone Forms: Nursing Discharge Form Referrals: [facility] Pall[facility] [Provider Group] Myriam Kapoor [Primary Care Provider] - Activity:: Activity as Tolerated Equipment/Supplies:: No Equipment Needed Diet:: tube feeding Discharge Orders Discharge Orders: Discharge Order (Routine); Ordered 12/26/22 Ordered By: Marquita Ortiz DS: Summary Time Spent with Patient providing and/or coordinating discharge services: Greater than 30 minutes Status at Discharge Functional status at discharge: uses cane/walker Overall status at discharge: patient is progressing back to baseline Mental Status: mental status grossly normal Speech and Movement: other (dysarthria) Mood: congruent mood Affect: normal affect Exam Narrative Exam Narrative: General: Pleasant middle-aged female with dysarthria, somewhat difficult to understand, A&Ox3, no evidence of respiratory fatigue HEENT: EOMI, MMM Heart: RRR, no m/r/g Lungs: Diminished breath sounds B Abdomen: soft, nontender, nondistended Extremities: no edema BLEs Psych Mental Status: mental status grossly normal Speech and Movement: other (dysarthria) Mood: congruent mood Affect: normal affect DS: Data Vitals/I&O Vitals and I&O: Vital Signs Temperature 36.3 C L 12/26/22 15:37 Temperature Source Tympanic 12/26/22 15:37 Pulse 75 12/26/22 15:37 Pulse Rhythm Regular 12/26/22 08:00 Pulse 90 12/22/22 23:10 Respiratory Rate 22 12/26/22 15:37 Respiratory Effort Normal, Non-Labored 12/26/22 08:00 Respiratory Depth Normal 12/26/22 08:00 Respiratory Pattern Normal 12/26/22 08:00 Blood Pressure 182/102 H 12/26/22 15:37 Blood Pressure Mean 116 12/22/22 21:30 Blood Pressure Position Sitting 12/22/22 17:39 Pulse Oximetry 96 12/26/22 15:37 Oxygen Delivery Method Room Air 12/26/22 15:37 Oxygen Flow Rate 0 12/26/22 15:37 Fraction of Inspired Oxygen (FIO2) 21 12/25/22 00:00 Pain Level 0 12/26/22 15:37 Comment RN Notified 12/26/22 06:35 Intake & Output 12/25/22 12/26/22 12/26/22 23:59 11:59 23:59 Intake Total 100 / 400 320 / 420 100 / 420 Balance 100 / 400 320 / 420 100 / 420 Weight 33.5 kg Intake: IV 100 / 400 320 / 420 100 / 420 Other: Urine Appearance Clear Clear Comment Pt voids ad nelli on toilet; no hat. Denies sx. Stool Size Moderate Smear Stool Characteristics Liquid Brown Voiding Methods Toilet Data Completed and Pending Completed studies during hospitalization [Text1]: CXR: No acute abnormality in the chest.? Free air remains present.? CT abdomen/pelvis: The PEG tube appears to be appropriately positioned.? No surrounding fluid collection or abscess. Free air. Endometrial thickening versus fluid within the endometrium.? Pelvic ultrasound could be performed for further evaluation. Labs on day of discharge: Labs from last 24 hours 12/26/22 12/26/22 06:25 06:25 WBC 12.25 H RBC 4.83 Hgb 13.5 Hct 40.7 MCV 84 MCH 28.0 MCHC 33.2 RDW 13.5 Plt Count 231 MPV 10.8 Immature Gran % 0.6 Neutrophils % 69.5 Lymphocytes % 19.5 Monocytes % 8.0 Eosinophils % 2.0 Basophils % 0.4 Nucleated RBC % 0.0 Absolute Neutrophils 8.51 H Absolute Lymphocytes 2.39 Absolute Monocytes 0.98 H Absolute Eosinophils 0.25 Absolute Basophils 0.05 Sodium 135 L Potassium 4.7 Chloride 97 L Carbon Dioxide 33.7 H Anion Gap 4.3 BUN 19 H Creatinine 0.6 Est GFR (CKD-EPI 2020) 98.93 Glucose 109 H Calcium 8.5 Magnesium 1.8 PFSH All Active Problems (Updated 12/26/22 @ 16:32 by Darleen May MD, [place]) Palliative care encounter (Acute) Discharge planning issues (Acute) DVT prophylaxis (Acute) Sepsis (Acute) C. difficile colitis (Acute) Leukocytosis (Acute) Diarrhea (Acute) ALS (amyotrophic lateral sclerosis) (Acute) peg tube placed Malnutrition (Acute) Shortness of breath (Acute) Hypertension (Chronic) Nausea & vomiting (Acute) Dysarthria and anarthria (Acute) Anxiety (Chronic) Pilonidal cyst of cleft (Acute) CAD (coronary artery disease) (Chronic) Medical History Abdominal discomfort Anxiety and depression Anxiety with depression Aphasia Back pain Back pain CAD (coronary artery disease) Colon cancer screening Decreased hearing Decreased hearing of both ears Distal radius fracture, right (~05/14/19) TRUONG (dyspnea on exertion) denies this Dysarthria Dysphagia Dyspnea on exertion Essential tremor Facial weakness Family history of breast cancer Family history of breast cancer Family history of breast cancer in first degree relative Fasciculations Headache Hematoma of vaginal vault after surgical procedure History of kidney stones Hypertension Kidney stones Motor neuron disease Muscle twitch Osteopenia Osteopenia Pain in right wrist Pain of left thumb Palliative care patient Post-nasal drip Screening for breast cancer Screening for colon cancer Stress incontinence Stress incontinence Suprapubic pain Thumb pain Tremulousness Weight loss Surgical History H/O heart artery stent (~11/2018) ANN MARIE to RCA-no longer has to f/u with cardiology Normal colonoscopy (~11/02/20) S/P breast lumpectomy S/P coronary artery stent placement Family History Mother Hypertension Social History Smoking/Tobacco Use Status: Never Smoking risk assessment performed?: Yes Alcohol Intake: never Drug use: Never Substance use type: does not use Household members: none Housing: house Number of Children: 2 Education Level: college current occupation: Retired Current gender identity: female What type of physical activity do you participate in: additional Details: XCS Duration: 15-30 minutes/day Frequency: 3-4 times per week Do you feel safe at home: Yes Do you feel safe in your relationship?: Yes Time Spent with Patient Time Spent with Patient: 45-69 minutes Time was spent: preparing to see the patient(eg.review tests), obtaining and/or reviewing separately otained hiistory, ordering medications,tests, procedures, referring, communicating with other health managed care coordinator, indepentently interpreting results, counseling the patient and care coordination
[2022-12-26] MEDS: cloNIDine 0.1 MG PATCH TD (17:45)
--- NOTE | 2022-12-29 07:48 | OTDS_ITS ---
Occupational Therapy Notes Occupational Therapy Inpatient Discharge Summary Date: 12/29/22 Dates of Service: 12/25/22 Referring Doctor: OT Orders: Non urgent Precautions: Fall, standard, DNR/DNI *This document serves as a summary of care, no skilled OT services were provided on this date* PATIENT PROFILE/ADMITTING DIAGNOSIS: Pt is a 7 year old female admitted to Med Surg with the following dx of Sepsis, C.Difficile colitis, leukocytosis, diarrhea, ALS, malnutrition, hypertension, dysarthria and anarthria, anxiety, CAD, pilonidal cyst of cleft. Past Medical History: All Active Problems? Leukocytosis (Acute) Diarrhea (Acute) ALS (amyotrophic lateral sclerosis) (Acute) peg tube placedMalnutrition (Acute) Shortness of breath (Acute) Hypertension (Chronic) Nausea & vomiting (Acute) Dysarthria and anarthria (Acute) Anxiety (Chronic) Pilonidal cyst of cleft (Acute) CAD (coronary artery disease) (Chronic) Medical History? Abdominal discomfort Anxiety and depression Anxiety with depression Aphasia Back pain Back pain CAD (coronary artery disease) Colon cancer screening Decreased hearing Decreased hearing of both ears Distal radius fracture, right (~05/14/19) TRUONG (dyspnea on exertion) denies thisDysarthria Dysphagia Dyspnea on exertion Essential tremor Facial weakness Family history of breast cancer Family history of breast cancer Family history of breast cancer in first degree relative Fasciculations Headache Hematoma of vaginal vault after surgical procedure History of kidney stones Hypertension Kidney stones Motor neuron disease Muscle twitch Osteopenia Osteopenia Pain in right wrist Pain of left thumb Palliative care patient Post-nasal drip Screening for breast cancer Screening for colon cancer Stress incontinence Stress incontinence Suprapubic pain Thumb pain Tremulousness Weight loss Surgical History? H/O heart artery stent (~11/2018) ANN MARIE to RCA-no longer has to f/u with cardiologyNormal colonoscopy (~11/02/20) S/P breast lumpectomy S/P coronary artery stent placement Social History/Home Situation: Pt lives at home, her son was present in the room when OT arrived and reports that she has all the adaptive equipment that she needs for her ADLs. She has a supportive family and they report that prior to her surgery she was very (I). She is weak and fatigued right now and they feel t hat this is what is limiting her at this time. SUBJECTIVE:?NT OBJECTIVE:? ROM: RUE AROM WFL but weak and increased fatigue limits her functional activity tolerance L UE AROM WFL but weak and increased fatigue limits her functional activity tolerance FUNCTIONAL MOBILITY/ADLS:? *Based on initial evaluation assessment- no skilled OT services provided on this date.* Transfers in bed rolling (I) BATHING lying in bed with max (A) set up/clean up Bathing UE able to bring hand to face but too fatigued to perform this (I), OT performed with max (A) face, (B) UE, abdomen, max (A) hair Bathing LE max (A) (B)_ UE DRESSING lying in bed Dressing UE max (A) [facility] gown Dressing LE NT GROOMING mod (A) brushing hair TOILETING NT EATING Peg tube placement ASSESSMENT:?? Patient is a 67-year-old female referred to occupational therapy services with diagnosis of Sepsis, C.Difficile colitis, leukocytosis, diarrhea, ALS, malnutrition, hypertension, dysarthria and anarthria, anxiety, CAD, pilonidal cyst of cleft. Patient was receptive to performance of her ADLs and performing them as (I) as possible. She has good family support and was receptive to education and training. GOALS- pt was seen for OT consult only. 1.? Transfers mod (A) 2.? Dressing (I) UE, mod (A) LE 3.? Bathing max (A) set up (I) UE, mod (A) LE 4.? Toileting on commode with mod (A) PLAN OF CARE/TREATMENT PLAN: Pt was discharged on 12/26 to return home with services. DISCHARGE RECOMMENDATIONS Based on pts current level of function, OT recommends home with services vs. SNF. Pt would benefit to return home with services to be in her own environment for performance of her ADLs/IADLs. Family does not feel that pt would need further adaptive equipment at this time. She does have difficulty with verbal communication, but she is working with PAPIER MACHE MOLDER. OT will defer to her recommendations for oral/verbal communications. TREATMENT TIME/MINUTES/CODES N/A Pita Klein, OTR/L [facility] [place], [place]
--- NOTE | 2022-12-30 13:40 | PT.INDS ---
Date of service: 12/25/22 PT Notes Visit Reasons: C Diff Colitis Physical Therapy Inpatient Discharge Summary Date: 12/25/2022 Service: 12/24/2022 through 12/25/2022 This is a clinical summary of care provided for the duration of dates listed above. No charge was made in the completion of this documentation. Referring Doctor: Marquita Ortiz MD PT Orders: PT CONSULT: Limited ability Precautions: Fall.??On enteric contact precautions. Activity as tolerated. Patient Profile/Admitting Diagnosis:? Carmelina is a 67-year-old female recently diagnosed with ALS who presented to the ED on 12/12/2022 due to diarrhea and dehydration.? Patient is admitted for management of sepsis, C. difficile colitis, shortness of breath, and hypertension. PMHX: All Active Problems? Leukocytosis (Acute) Diarrhea (Acute) ALS (amyotrophic lateral sclerosis) (Acute) peg tube placed Malnutrition (Acute) Shortness of breath (Acute) Hypertension (Chronic) Nausea & vomiting (Acute) Dysarthria and anarthria (Acute) Anxiety (Chronic) Pilonidal cyst of cleft (Acute) CAD (coronary artery disease) (Chronic) Medical History? Abdominal discomfort Anxiety and depression Anxiety with depression Aphasia Back pain Back pain CAD (coronary artery disease) Colon cancer screening Decreased hearing Decreased hearing of both ears Distal radius fracture, right (~05/14/19) TRUONG (dyspnea on exertion) denies thisDysarthria Dysphagia Dyspnea on exertion Essential tremor Facial weakness Family history of breast cancer Family history of breast cancer Family history of breast cancer in first degree relative Fasciculations Headache Hematoma of vaginal vault after surgical procedure History of kidney stones Hypertension Kidney stones Motor neuron disease Muscle twitch Osteopenia Osteopenia Pain in right wrist Pain of left thumb Palliative care patient Post-nasal drip Screening for breast cancer Screening for colon cancer Stress incontinence Stress incontinence Suprapubic pain Thumb pain Tremulousness Weight loss Surgical History? H/O heart artery stent (~11/2018) ANN MARIE to RCA-no longer has to f/u with cardiology Normal colonoscopy (~11/02/20) S/P breast lumpectomy S/P coronary artery stent placement Social History/Home Situation: Lives with sister in a private home with 3 steps to enter.? Has an option for staying on the main floor of the house as needed.? Independent with household distances without an assistive device. ? Son and daughter are good support source. Equipment Owned/DME: FWW Subjective: NT. See most recent FLIGHT OPERATIONS COORDINATOR notes. Objective: General Observation: NT. See most recent FLIGHT OPERATIONS COORDINATOR notes. Mental Status: NT. See most recent FLIGHT OPERATIONS COORDINATOR notes. Pain: NT. See most recent FLIGHT OPERATIONS COORDINATOR notes. Vital Signs: NT. See most recent FLIGHT OPERATIONS COORDINATOR notes. ROM: Right Upper Extremity: ? Shoulder Flexion WFL. Shoulder abduction WFL. Elbow flexion WFL. Wrist flexion WFL. Functional opening and closing of hand WFL. Left Upper Extremity:? Shoulder Flexion WFL. Shoulder abduction WFL. Elbow flexion WFL. Wrist flexion WFL. Functional opening and closing of hand WFL. Right Lower Extremity: Hip flexion WFL. Hip abduction WFL. Knee flexion WFL. Ankle dorsiflexion to neutral only. Ankle plantarflexion WFL. Left Lower Extremity: Hip flexion WFL. Hip abduction WFL. Knee flexion WFL. Ankle dorsiflexion to neutral only. Ankle plantarflexion WFL. Strength: Right Upper Extremity: Shoulder flexors 3+/5. Shoulder abductors 3+/5. Elbow flexors 4-/5. Elbow extensors 3+/5. Telesales Advisor strong. Left Upper Extremity:? Shoulder flexors 3+/5. Shoulder abductors 3+/5. Elbow flexors 4-/5. Elbow extensors 3+/5. Telesales Advisor strong. Right Lower Extremity: Hip flexors 3+/5. Hip abductors 3+/5. Knee flexors 4-/5. Knee extensors 3+/5. Ankle dorsiflexors 3-/5. Ankle plantarflexors 4-/5. Left Lower Extremity: Hip flexors 3+/5. Hip abductors 3+/5. Knee flexors 4-/5. Knee extensors 3+/5. Ankle dorsiflexors 3-/5. Ankle plantarflexors 4-/5. BED MOBILITY/TRANSFERS? Supine to EOB: Supervision ? Sit-stand: Supervision ? Stand-sit: Supervision ? EOB to supine: Supervision ? GAIT? Assistive Device: FWW? Weight bearing: Full Assist: SBA ? Distance:? 450'? Deviation: Cueing for increased step length, slow pacing Balance: Static Sitting: Normal Dynamic Sitting: Normal Static Standing: Good Dynamic Standing: Fair Assessment: More able to conserve energy with report of no SOB with use of FWW during ambulation.? Unable to complete 4-stage balance test today indicating risk for falls and need for assistive ambulatory device.? Patient presents with clinical signs and symptoms consistent with current/admitting diagnoses that have resulted to mobility limitations, gait instability, generalized weakness, and overall ADL decline as demonstrated by the following impairment level findings: 1.? Decreased strength to B UE/LE major muscle groups 2.? Impaired standing balance 3.? Impaired activity tolerance Impairments are contributing to the following functional limitations: 1.? Difficulty with ambulation without assistive device 2.? Increased completion time for mobility ADL performance 3.? Increased risk for falls 4.? Difficulty with managing steps alone safely Goals: Goals X1 week 1. Supine-Sit independent NOT MET 2. Sit-Supine independent NOT MET 3. Sit-Stand independent NOT MET 4. Stand-Sit independent with no AD NOT MET 5. Bed-Chair independent with no AD NOT MET 6. Chair-Bed independent with no AD NOT MET 7. Independent gait on level surface with use of FWW for at least 300 feet without report of pain nor dyspnea NOT MET 8. Independent stair negotiation while holding onto B rails for at least 3 steps without report of pain nor dyspnea NOT MET 9. Independent with home exercise program NOT MET 10. Good static and dynamic standing balance/tolerance NOT MET DISCHARGE RECOMMENDATIONS: [] ? Home with no services [] [X] ? Home with services.? Patient will benefit from home health PT services in order to progress mobility level using least restrictive assistive ambulatory device, assess home safety, identify additional equipment needs, and establish a functional maintenance program that will increase ability of patient to remain at home. [] ? Home with outpatient PT [] [] ? SNF for continued rehabilitation [] [] ? [facility]-Way [facility] [] [] ? SNF versus LTC based on ability to participate and progress [] TREATMENT CODE/TIME: UT Thank you for the opportunity to participate in the care of this patient. Aracelis Cruz PT, DPT, CLT [facility] [place], [place]
== END 2022-12-26 18:35 | disposition home health service (06) | DRG 872 ==
LOC: ER 22:47 → MS 23:57
PROVIDERS: Family Medicine; Internal Medicine; Admitting Provider General Practice; Emergency Provider Emergency Medicine; PCP Family Medicine; Visit Provider General Practice
DX: A41.4 Sepsis due to anaerobes (principal); A04.72 Enterocolitis due to Clostridium difficile, not specified as recurrent; Z68.1 Body mass index [BMI] 19.9 or less, adult; G12.21 Amyotrophic lateral sclerosis; E46 Unspecified protein-calorie malnutrition; B37.0 Candidal stomatitis; I10 Essential (primary) hypertension; R06.02 Shortness of breath; F41.9 Anxiety disorder, unspecified; R47.1 Dysarthria and anarthria; Z93.1 Gastrostomy status; R11.2 Nausea with vomiting, unspecified; I25.10 Atherosclerotic heart disease of native coronary artery without angina pectoris; F32.A Depression, unspecified; R13.10 Dysphagia, unspecified; G25.0 Essential tremor; Z95.5 Presence of coronary angioplasty implant and graft; E86.0 Dehydration; Z66 Do not resuscitate
CPT/HCPCS: 36415; 80048; 80053; 80076; 83690; 85027; 87493; 93005; 97116; 97162; 97167; 97530; 97535; 99285; 71046; 74177; 81003; 81015; 82248; 83605; 83735; 83880; 84484; 85025; 86140; 93010; 99222; 99232; 99233; 99239; G0378; J1644; J3490